=== PATIENT | female | born 1945 | race Caucasian/White ===

== ENCOUNTER → 2016-07-05 | Outpatient (CLI) | payer OTHER ==
[2016-07-05 15:17] LABS: ALT/SGPT 30 U/L (12-78); AST/SGOT 28 U/L (15-37); BLOOD UREA NITROGEN 33 mg/dl (7-18); BUN/CREATININE RATIO 27.6 (10-20); CALCIUM 8.9 mg/dl (8.5-10.1); CARBON DIOXIDE 27 mmol/L (21-32); CHLORIDE 109 mmol/L (98-107); GLUCOSE 91 mg/dl (70-99); SODIUM 143 mmol/L (136-145)
[2016-07-05 15:25] LABS: ALB/GLOB RATIO 1.2 (0.9-2); ALKALINE PHOSPHATASE 178 U/L (45-117); CHOLESTEROL 130 mg/dl (0-200); HDL CHOLESTEROL 57 mg/dl; LDL CHOLESTEROL CALCULATED 46 mg/dl; TRIGLYCERIDES 136 mg/dl (0-150); VERY LOW DENSITY LIPOPROT CALC 27 mg/dl
[2016-07-05 15:26] LABS: CHOLESTEROL/HDL RATIO 2.3
== END | disposition home or self-care (01) ==
LOC: C.LABPVFM 08:17
PROVIDERS: ATTEND Family Medicine
DX: I10 Essential (primary) hypertension (principal); E78.5 Hyperlipidemia, unspecified

== ENCOUNTER → 2017-01-03 | Outpatient (CLI) | payer OTHER ==
[2017-01-03 14:03] LABS: ALKALINE PHOSPHATASE 174 U/L (45-117); ALT/SGPT 15 U/L (12-78); AST/SGOT 18 U/L (15-37); BLOOD UREA NITROGEN 39 mg/dl (7-18); BUN/CREATININE RATIO 33.6 (10-20); CALCIUM 9.4 mg/dl (8.5-10.1); CARBON DIOXIDE 26 mmol/L (21-32); CHLORIDE 109 mmol/L (98-107); CHOLESTEROL 126 mg/dl (0-200); CHOLESTEROL/HDL RATIO 1.9; CREATININE 1.16 mg/dl (0.60-1.20); GLUCOSE 87 mg/dl (70-99); HDL CHOLESTEROL 68 mg/dl; LDL CHOLESTEROL CALCULATED 29 mg/dl; POTASSIUM 4.1 mmol/L (3.5-5.1); SODIUM 142 mmol/L (136-145); TRIGLYCERIDES 143 mg/dl (0-150); VERY LOW DENSITY LIPOPROT CALC 29 mg/dl
== END | disposition home or self-care (01) ==
LOC: C.LABPVFM 08:22
PROVIDERS: ATTEND Family Medicine
DX: I10 Essential (primary) hypertension (principal); E78.5 Hyperlipidemia, unspecified; J44.9 Chronic obstructive pulmonary disease, unspecified; R74.8 Abnormal levels of other serum enzymes

== ENCOUNTER → 2017-07-03 | Outpatient (CLI) | payer OTHER ==
[2017-07-03 13:38] LABS: ALBUMIN 3.6 gm/dl (3.4-5.0); ALT/SGPT 25 U/L (12-78); AST/SGOT 25 U/L (15-37); BLOOD UREA NITROGEN 33 mg/dl (7-18); CALCIUM 9.2 mg/dl (8.5-10.1); CARBON DIOXIDE 26 mmol/L (21-32); CHOLESTEROL 122 mg/dl (0-200); CREATININE 1.26 mg/dl (0.60-1.20); GLUCOSE 84 mg/dl (70-99); POTASSIUM 4.1 mmol/L (3.5-5.1); SODIUM 141 mmol/L (136-145)
[2017-07-03 13:41] LABS: ALKALINE PHOSPHATASE 176 U/L (45-117); LDL CHOLESTEROL CALCULATED 41 mg/dl; TOTAL PROTEIN 6.8 gm/dl (6.4-8.2)
== END | disposition home or self-care (01) ==
LOC: C.LABPVFM 08:04
PROVIDERS: ATTEND Family Medicine
DX: I10 Essential (primary) hypertension (principal); E78.5 Hyperlipidemia, unspecified; M17.10 Unilateral primary osteoarthritis, unspecified knee; J44.9 Chronic obstructive pulmonary disease, unspecified

== ENCOUNTER 2017-10-17 10:27 | Inpatient (IN) | payer OTHER ==
[2017-09-29 11:46] VITALS: BMI 26.0
--- NOTE | 2017-10-02 16:29 | PAT Medication Instructions ---
Service Date Oct 02, 2017. Current Home Medication List Atorvastatin (Lipitor), 10 MG PO QPM Ipratropium-Albuterol (Combivent Respimat), 1 PUFFS INH QID Triamterene/Hctz (Triamterene/Hctz 37.5-25MG), 1 TAB PO QAM Medication Instructions For Your Scheduled Surgery - Hold the following medications the morning of surgery: Triamterene/Hctz (Triamterene/Hctz 37.5-25MG), 1 TAB PO QAM - Take the following medications the morning of surgery with a sip of water: Ipratropium-Albuterol (Combivent Respimat), 1 PUFFS INH QID - Take the following medications as scheduled the night before surgery: Ipratropium-Albuterol (Combivent Respimat), 1 PUFFS INH QID Atorvastatin (Lipitor), 10 MG PO QPM If you have any questions please call us at [phone] or [phone] or [phone]
--- NOTE | 2017-10-13 18:42 | HISTORY & PHYSICAL EXAMINATION ---
DATE OF ADMISSION: 10/17/2017 CHIEF COMPLAINT: Bilateral knee pain and discomfort, right side greater than left. HISTORY OF PRESENT ILLNESS: The patient is a 71-year-old female from [place] who presents for surgical treatment of her right knee. She has a fairly long history of bilateral knee pain and discomfort, right side greater than left. She has been followed by my partner Dr. Ingram. She has had injections into the knees which helped temporarily, but do not last very long. She developed more instability, particularly in her right knee and has given out on her several times and she is concerned about falling and hurting herself. Pain is mostly on the lateral side. The more she walks, the more it hurts. She would like to have her right knee fixed. PAST MEDICAL HISTORY: 1. Hypertension. 2. Emphysema/COPD. PAST SURGICAL HISTORY: Previous surgeries include ovarian and fallopian tube removal. ALLERGIES: LATEX AND NICKEL. CURRENT MEDICINES: Include: 1. Triamterene/hydrochlorothiazide 37.5/25 mg once a day. 2. Combivent inhaler. 3. Atorvastatin 10 mg daily. 4. Aleve p.r.n. SOCIAL HISTORY: A 71-year-old female. She is . FAMILY HISTORY: Noncontributory. REVIEW OF SYSTEMS: Negative for diabetes, neurologic problems, vascular problems or bleeding disorders. No chest pain or shortness of breath. No history of DVT or PE. PHYSICAL EXAMINATION: GENERAL: Shows a pleasant elderly female. Looks to be in good health. HEENT: Benign. NECK: Supple, no lymphadenopathy. LUNGS: Clear to auscultation. HEART: Has a regular rate and rhythm. ABDOMEN: Soft, nontender, nondistended. EXTREMITIES: Grossly neurovascularly intact except as follows: Examination of the right leg reveals the patient walks with slight bit of valgus alignment to her knee which is worse with weightbearing. She has got a small knee effusion. She is tender over the lateral joint line. Range of motion is 5-125. No instability. She is neurologically intact. Examination of the left knee reveals slight varus alignment. She has got bony hypertrophy medially. Range of motion is 5-125. She is neurologically intact. X-RAYS: X-rays of both knees were reviewed. She has advanced bilateral knee DJD. The right side has mostly complete loss of lateral joint space and the left side has more medial compartment disease. She has got patellofemoral arthritis as well. ASSESSMENT: A 71-year-old female with advanced bilateral knee degenerative joint disease, right side a bit worse than the left. She has failed conservative treatment and would like to have her right knee replaced. PLAN: We will take her to the operating room and do right total knee replacement. The risks and benefits of this procedure were explained to the patient including but not limited to DVT, PE, , infection, neurological injury, vascular injury, bleeding problem, pain, limited range of motion, stiffness, failure to relieve her symptoms, incomplete relief of symptoms, need for further surgery in future, fracture, leg length inequality, nerve palsy, etc. The patient understands and desires to proceed. Informed consent was obtained. The patient has been unrelieved. Her creatinine on preoperative testing was slightly elevated. We will be careful with NSAIDs postop but follow her creatinine as well. Patient has an apparent Nickel allergy, so we will use the Anders and Nephew Zirconium Knee Arthroplasty. As far as discharge plans, she is planning on using home health via [facility] and will do outpatient therapy thereafter. EFRAIN
[2017-10-17] VITALS (7 sets, daily range): BP systolic 106–113; BP diastolic 59–78; PULSE 71–78; TEMP 36.4–36.8; O2SAT 92–97; Ht 157.5 cm; Wt 65.9 kg
[~2017-10-17] VITALS: Ht 157.5 cm; Wt 65.9 kg
[~2017-10-17 10:27] MED LIST: ACETAMINOPHEN 500 MG TAB PO SCH; ATOR10TA82 PO; BUPIVACAINE 0.5 % 5 MG/1 ML PF 10ML VIAL ONE; BUPIVACAINE LIPOSOME 266 MG, BUPIVACAINE/EPINEPHRINE INJ 50 ML, SODIUM CHLORIDE 0.9% PF... INFIL SCH; CEFAZOLIN 2000MG IV PUSH 15 ML IV SCH; EpINEphrine INJ 1MG/ML AMP 1 MG/ML AMP ONE; FAMOTIDINE 20 MG TAB PO SCH; GABAPENTIN 300 MG CAP PO SCH; IPRA1AER2 INH; LACTATED RINGER'S 1000ML 1,000 ML IV SCH; LACTATED RINGER'S 1000ML 500 ML IV SCH; LACTATED RINGER'S 1000ML IV SCH; METOCLOPRAMIDE HCL 10 MG TAB PO SCH; ROPIVACAINE 0.5% 5 MG/ML 30 ML VIAL ONE; TRIATAB3 PO
[2017-10-17] MEDS ORDERED: MIDAZOLAM HCL 1 MG/ML 2ML VIAL ONE (11:39)
[2017-10-17] MEDS ORDERED: FENTANYL CITRATE INJ 50 MCG/1 ML 2 ML VIAL ONE (11:39)
--- NOTE | 2017-10-17 11:40 | History & Physical Bridge Note ---
H&P Re-Evaluation Bridge Note: I have examined the patient, reviewed the History & Physical and in the interval since the performance of the History & Physical I have noted the following changes of clinical significance: No changes noted
[2017-10-17] MEDS ORDERED: SODIUM CHLORIDE 0.9% PF 50 ML VIAL ONE (11:41)
[2017-10-17] MEDS ORDERED: NURSING VERBAL MED ORDER STA (11:41)
[2017-10-17] MEDS ORDERED: EpINEphrine INJ 1MG/ML AMP 1 MG/ML AMP ONE (11:42)
[2017-10-17] MEDS ORDERED: BUPIVACAINE LIPOSOME 1/3% 266 MG/20 ML VIAL ONE (11:42)
[2017-10-17] MEDS ORDERED: BUPIVACAINE 0.25% 30 ML VIAL ONE (11:42)
[2017-10-17] MEDS ORDERED: BACITRACIN 50000 UNIT VIAL ONE (11:42)
[2017-10-17] MEDS ORDERED: ATROPINE SULFATE 0.1 MG/ML 5ML SYR IV PRN (12:00)
[2017-10-17] MEDS ORDERED: FENTANYL CITRATE INJ 50 MCG/1 ML 2 ML VIAL IV PRN (12:00)
[2017-10-17] MEDS ORDERED: HYDROmorphone INJ 1 MG/ML SYR IV PRN (12:00)
[2017-10-17] MEDS ORDERED: EpHEDrine SULFATE INJ 50 MG/ML AMP IV PRN (12:00)
[2017-10-17] MEDS ORDERED: ONDANSETRON INJ 2 MG/ML 2 ML VIAL IV PRN ×2 (12:00→15:30)
[2017-10-17] MEDS ORDERED: TRANEXAMIC ACID INJ 1,000 MG in SODIUM CHLORIDE 0.9% 100ML 100 ML IV SCH ×2 (12:00→21:30)
[2017-10-17] MEDS ORDERED: PROPOFOL IV EMULSION 10 MG/ML 20 ML VIAL ONE ×2 (14:45→14:55)
[2017-10-17] MEDS ORDERED: PHENYLEPHRINE HCL INJ 10 MG/ML VIAL ONE (14:45)
[2017-10-17] MEDS ORDERED: LIDOCAINE HCL 2% 2 ML VIAL (20MG/ML) ONE (14:45)
--- NOTE | 2017-10-17 15:29 | [facility] Post Operative Brief Note ---
Immediate Operative Summary Operative Date Oct 17, 2017. Pre-Operative Diagnosis Advanced right knee degenerative joint disease Post-Operative Diagnosis Advanced right knee degenerative joint disease Procedure(s) Performed Right total knee arthroplasty, cemented Surgeon Dr. Chauhan Skip Pitman Surgeon(s) Markus Perry PA-C Estimated Blood Loss 50 cc Findings Consistent with Post-Op Diagnosis Fluids (cc crystalloids) 2000 cc Specimens A: Right knee bone and tissue Drains None Anesthesia Type MAC Spinal Regional Complication(s) none Disposition Accompanied Pt To Recover: yes Disposition: Recovery Room / PACU Overlapping Procedure I was present for: the critical portions of procedure. I was immediately available: during the entire case
[2017-10-17] MEDS ORDERED: HYDROmorphone INJ 0.5 MG/0.5 ML SYR IV PRN (15:30)
[2017-10-17] MEDS ORDERED: MAGNESIUM HYDROXIDE SUSP 30 ML UDC PO PRN (15:30)
[2017-10-17] MEDS ORDERED: METOCLOPRAMIDE HCL INJ 5 MG/ML 2 ML VIAL IV PRN (15:30)
[2017-10-17] MEDS ORDERED: BISACODYL 10 MG SUPP PR PRN (15:30)
[2017-10-17] MEDS ORDERED: SILVER SULFADIAZINE 1% CR 50 GM JAR EXT PRN (15:30)
[2017-10-17] MEDS ORDERED: ZOLPIDEM TARTRATE 5 MG TAB PO PRN (15:30)
[2017-10-17] MEDS ORDERED: ALUMINUM/MAGNESIUM/SIMETH (MAALOX MAX) 30 ML UDC PO PRN (15:30)
--- NOTE | 2017-10-17 15:52 | DIAGNOSTIC IMAGING REPORT ---
RIGHT KNEE 2 VIEWS History: Right total knee arthroplasty. Degenerative arthritis. Postop. FINDINGS: The patient is status post a right total knee arthroplasty. The hardware is intact. No fracture or dislocation. Skin luzmaria are in place. IMPRESSION: Right total knee arthroplasty. No evidence for hardware complication. Electronically signed by: Reji Rooney M.D. 10/17/2017 3:51 PM Dictated Date/Time: 10/17/2017 3:50 PM
--- NOTE | 2017-10-17 15:59 | Anesthesiology Progress Note ---
Anesthesia Post Op Note Date & Time Oct 17, 2017 at 15:58 Vital Signs Pain Intensity: 0 Vital Signs Past 12 Hours Date Time Temp Pulse Resp B/P (MAP) Pulse Ox O2 Delivery O2 Flow Rate FiO2 10/17/17 15:55 36.4 72 18 100/67 96 Room Air 10/17/17 15:45 70 18 102/64 100 Oxymask 3 10/17/17 15:35 69 18 99/59 100 Oxymask 10 10/17/17 15:29 36.0 69 18 91/51 97 Oxymask 10 10/17/17 10:57 36.4 75 18 113/59 97 Room Air Notes Mental Status: alert / awake / arousable, participated in evaluation Pt Amnestic to Procedure: Yes Nausea / Vomiting: adequately controlled Pain: adequately controlled Airway Patency, RR, SpO2: stable & adequate BP & HR: stable & adequate Hydration State: stable & adequate Neuraxial Anesthesia: was administered, sensory block is resolving Anesthetic Complications: no major complications apparent Patient feels well in recovery with no complaints.
[2017-10-17] MEDS: IPRATROPIUM BROMIDE/ALBUTEROL respimat INH INH SCH ×2 (17:54→21:01)
[2017-10-17] MEDS: D5W AND 1/2NSS + 20MEQ KCL 1,000 ML IV SCH (17:54)
[2017-10-17] MEDS: FERROUS GLUCONATE 324 MG TAB PO SCH (17:55)
[2017-10-17] MEDS: TRAMADOL HCL 50 MG TAB PO PRN (20:18)
[2017-10-17] MEDS: CEFAZOLIN IV 1,000 MG in SYRINGE 0 ML IV SCH (21:01)
[2017-10-17] MEDS: ACETAMINOPHEN 500 MG TAB PO SCH (21:01)
[2017-10-17] MEDS: DOCUSATE SODIUM 100 MG CAP PO SCH (21:01)
[2017-10-17] MEDS: ASPIRIN 81 MG ECTAB PO SCH (21:01)
[2017-10-17] MEDS: ATORVASTATIN 10 MG TAB PO SCH (21:01)
[2017-10-17] MEDS: SENNA 8.6 MG TAB PO SCH (21:02)
--- NOTE | 2017-10-17 22:52 | OPERATIVE REPORT ---
DATE OF OPERATION: 10/17/2017 SURGEON: Carlton Chauhan MD CASINO DEALER: AKASH Malcolm. PREOPERATIVE DIAGNOSIS: Right knee degenerative joint disease. POSTOPERATIVE DIAGNOSIS: Right knee degenerative joint disease. PROCEDURE: Right Anders and Nephew zirconium posterior stabilized total knee arthroplasty. COMPLICATIONS: None. ESTIMATED BLOOD LOSS: 50 mL. FLUID REPLACEMENT: 2000 mL crystalloid fluid replacement. TOURNIQUET TIME: 68 minutes at 300 mmHg. ANESTHESIA: Spinal with adductor canal block. DRAINS: None. SPECIMENS: Right knee sent for pathology. OPERATIVE INDICATIONS: The patient is a 71-year-old female who has had a long history of bilateral knee pain and discomfort, right side greater than left. She has been managed by my partner Dr. Ingram. Over time, this conservative care has been less effective. She has become significantly debilitated by her disease. She would like to proceed with right total knee arthroplasty. The patient has an apparent NICKEL ALLERGY, so will use a Anders and Nephew zirconium total knee arthroplasty. OPERATIVE FINDINGS: Operative findings revealed extensive grade 4 changes of the medial femoral condyle and medial tibial plateau. She had some localized scattered grade 4 changes in the lateral compartment and the more extensive grade 4 changes in the patellofemoral compartment. OPERATIVE IMPLANTS: Operative implants consisted of: 1. Anders and Nephew right Journey II zirconium size 4 posterior stabilized femoral component. 2. Biomet Journey size 2 tibial tray. 3. A 10 mm posterior stabilized polyethylene insert. 4. A 29 x 9 all poly patella. OPERATIVE PROCEDURE: The patient taken to the operating room, identified, placed on the operating room table in supine position. All contact areas were appropriately padded. IV antibiotics were provided by the anesthesia team. A spinal anesthetic and adductor canal block provided in the holding area. Hebert catheter was placed in sterile fashion. Right thigh tourniquet was then placed and the right lower extremity was then prepped and draped in usual sterile fashion. The right leg was elevated and exsanguinated with Esmarch and tourniquet was placed at 300 mmHg. An anterior approach of the right knee was then performed through a longitudinal incision centered over the patella. Sharp dissection was carried through the subcutaneous tissue down to the level of the extensor mechanism. A medial parapatellar arthrotomy incision was made. Some subperiosteal dissection was carried out medially. The fat pad was dissected from beneath the patellar tendon. The lateral patellofemoral ligament was released. Patella was everted and the knee was flexed. The osteophytes were taken off the distal femur. The ACL and PCL were then released from the distal femur and the tibia subluxated anteriorly. The external tibial alignment jig was then placed in the anterior face of the tibia and adjusted 8 mm medially. Proximal tibial cut was made to remove about 2-3 mm of bone from the medial side. Tibia sized to a size 2. Attention was then drawn to the femur. The distal femur was entered with a sharp drill bit. Intramedullary canal was suctioned. A right 5-degree valgus cutting guide was placed. Distal femoral cutting block was pinned in place. Distal femoral cut was made to take an additional 2 mm of bone off the distal femur. The femur was then sized to a size 4. We did downsize this almost an entire size. The AP cutting block was then pinned parallel to the epicondylar axis, which was 4 degrees of external rotation. The anterior cord, anterior chamfer, posterior cut, posterior chamfer cut and anterior chamfer cuts were made. The knee was then flexed. The remnants of the medial and lateral menisci were excised. The osteophytes were taken off the posterior aspect of the femur. The trial femoral component was placed. The notch guide was placed and the notch was created. The trochlear groove was placed. The trial implant was assembled and the tibia was subluxated anteriorly. The tibial tray was then pinned in maximum external rotation. The drill and stem punch were used to create defect in proximal tibia for the tibial tray. The knee was then trialed and a 10 mm insert fit most appropriately. Attention was then drawn to the patella. The patella was cleaned of all soft tissues. Patella thickness measured 20 mm in thickness and was cut down to 12. It was sized to a size 29 patella. Lug holes were drilled for 29 patella. The lateral osteophyte was removed. Patella button was placed. Knee was taken through range of motion, patella tracked nicely with no thumbs test. Attention was then drawn toward placing the permanent components. All trial components were removed. Bone plug was placed in the distal femur to limit blood loss. A double batch Palacos G cement was mixed. A right Anders and Nephew Journey II size femoral component was then placed followed by a size 2 tibial tray, 10 mm posterior stabilized polyethylene insert, 29 x 9 all poly patella. The knee was brought out into full extension until cement hardened. A final cement check was then performed. Pericapsular tissues were injected with a total of 100 mL combination of 20 mL of Exparel, 30 mL of normal saline, 50 mL of 0.25% Marcaine with epinephrine. The patient did receive 1 gram of tranexamic acid. The tourniquet was then let down for a final tourniquet time of 68 minutes. Hemostasis was assured with use of electrocautery. The extensor mechanism was then closed with combination of #1 PDS suture and #1 Vicryl suture in [id number] fashion. Extensor mechanism was checked and found to be intact. Subcutaneous tissues were then closed with #2 Dexon suture in a buried interrupted fashion. Skin was closed with skin luzmaria. Leg was then cleaned and dried and a sterile dressing of Xeroform, 4 x 4's, sterile cast padding, Tello bandage were applied. The patient then transferred to the recovery room in stable condition. The patient tolerated the procedure well with no complication. All needle and sponge counts were correct at the end of the operation. I attest to the content of the Intraoperative Record and any orders documented therein. Any exception s are noted below.
[2017-10-18 00:05] VITALS: BP 107/63; PULSE 70; TEMP 36.4; O2SAT 94
[2017-10-18 03:15] VITALS: BP 114/64; PULSE 71; TEMP 36.3; O2SAT 95
[2017-10-18] MEDS: D5W AND 1/2NSS + 20MEQ KCL 1,000 ML IV SCH ×2 (03:16→12:42)
[2017-10-18] MEDS: TRAMADOL HCL 50 MG TAB PO PRN ×3 (03:20→20:54)
[2017-10-18 05:37] LABS: HEMATOCRIT 29.7 % (37-47); HEMOGLOBIN 9.6 g/dL (12.0-16.0); MEAN CELL VOLUME 87.9 fL (80-100); MEAN CORPUSCULAR HEMOGLOBIN 28.4 pg (25-34); MEAN CORPUSCULAR HGB CONC 32.3 g/dl (32-36); MEAN PLATELET VOLUME 8.6 fL (7.4-10.4); PLATELET COUNT 277 K/uL (130-400); RED CELL DISTRIBUTION WIDTH CV 13.1 % (11.5-14.5); WHITE BLOOD COUNT 7.32 K/uL (4.8-10.8)
[2017-10-18] MEDS: CEFAZOLIN IV 1,000 MG in SYRINGE 0 ML IV SCH (05:47)
[2017-10-18] MEDS: ACETAMINOPHEN 500 MG TAB PO SCH ×3 (05:47→20:51)
[2017-10-18 06:11] LABS: CREATININE 1.21 mg/dl (0.60-1.20); POTASSIUM 3.5 mmol/L (3.5-5.1)
[2017-10-18 06:47] VITALS: BP 100/61; PULSE 73; TEMP 36.6; O2SAT 99
--- NOTE | 2017-10-18 07:34 | Clinical Documentation Query ---
CLINICAL DOCUMENTATION QUERY Dr. PALOMARES, In your clinical opinion does this patient have: ( ) Chronic kidney disease, stage 3 ( ) Not Agree ( ) Other explanation of clinical findings (No explanation is considered a No Response) ( x ) Unable to determine ( ) Need to Discuss (Phone CDS or qliq) (No discussion is considered a No Response) The medical record reflects the following clinical findings, treatment, and risk factors. Clinical Indicators: 71 yo female presenting with R knee DJD for a R TKA. Review of historical GFR over the past 2 years revealed range of 38.9-46.7. Treatment: monitor PRP's thru PCP Risk Factors: HTN, COPD, age The stages of CKD according to the [employer] are as follows: Stage I: GFR >90 Stage II: GFR 60-89 Stage III: GFR 30-59 Stage IV: GFR 15-29 Stage V: GFR <15 Please clarify and document your clinical opinion in the progress notes and discharge summary. Terms such as "probable", "suspected", "likely", "questionable", "possible", or "still to be ruled out" are acceptable. IF IN AGREEMENT, YOU MUST DOCUMENT ABOVE DIAGNOSTIC STATEMENT IN DAILY PROGRESS NOTES AND DISCHARGE SUMMARY. This document is not part of the patient's record. Thank You, Sissy Garg, RN [phone]
[2017-10-18] MEDS: FERROUS GLUCONATE 324 MG TAB PO SCH ×3 (08:14→17:47)
[2017-10-18] MEDS: IPRATROPIUM BROMIDE/ALBUTEROL respimat INH INH SCH ×4 (08:14→20:51)
[2017-10-18] MEDS: TRIAMTERENE/HCTZ 37.5/25MG TAB PO SCH (08:14)
[2017-10-18] MEDS: MULTIVITAMIN TAB PO SCH (08:15)
[2017-10-18] MEDS: PANTOprazole SOD 40 MG TAB PO SCH (08:15)
[2017-10-18] MEDS: DOCUSATE SODIUM 100 MG CAP PO SCH ×2 (08:15→20:51)
[2017-10-18] MEDS: ASPIRIN 81 MG ECTAB PO SCH ×2 (08:15→20:51)
[2017-10-18 10:45] VITALS: BP 108/62; PULSE 74; TEMP 36.4; O2SAT 96
[2017-10-18] MEDS ORDERED: ACET-24 PO (13:57)
[2017-10-18] MEDS ORDERED: ULT50X PO (13:57)
[2017-10-18] MEDS ORDERED: ASPI-461 PO (13:57)
[2017-10-18] MEDS ORDERED: FRRG PO (13:57)
--- NOTE | 2017-10-18 14:05 | PROGRESS NOTE ---
DATE: 10/18/2017 SUBJECTIVE: A 71-year-old white female postop day 1 from a right knee replacement. She is doing pretty well. Pain has been reasonably well controlled. Therapy went well. No chest pain or shortness of breath. Not feeling dizzy or lightheaded. OBJECTIVE: VITAL SIGNS: Temperature 36.4. Vital signs stable. GENERAL: Physical examination reveals a pleasant elderly female. She is sitting in her chair in the bathroom waiting for some assistance. EXTREMITIES: Examination of the right leg reveals the leg to be well aligned. Dressing is clean, dry and intact. She can dorsiflex and plantarflex her foot appropriately. She is neurologically intact. LABORATORY DATA: Hemoglobin 9.6. Hematocrit 29.7. Electrolytes are stable. She does have some chronically elevated creatinine which is improved from previously. PLAN: 1. DVT prophylaxis including thigh-high TEDs, SCDs, and aspirin twice a day. 2. PT and OT. Weight bear as tolerated. Right total knee protocol. 3. Pain control. Doing reasonably well with current pain regimen. 4. Disposition: She is hoping to be discharged to home with some home health once medically stable and recovered.
[2017-10-18 15:07] VITALS: BP 109/64; PULSE 75; TEMP 36.4; O2SAT 95
[2017-10-18] MEDS: SENNA 8.6 MG TAB PO SCH (20:51)
[2017-10-18] MEDS: ATORVASTATIN 10 MG TAB PO SCH (20:51)
--- NOTE | 2017-10-18 21:06 | Discharge Instructions ---
Discharge Instructions Date of Service Oct 18, 2017. Admission Reason for Admission: Right Knee Degenerative Joint Disease, Knee Pain Discharge Discharge Diagnosis / Problem: Right Knee Replacement Discharge Goals Goal(s): Decrease discomfort, Improve function, Increase independence, Improve disease control, Therapeutic intervention Activity Recommendations Activity Limitations: per Instructions/Follow-up section Weightbearing Status: Right weightbearing . Instructions / Follow-Up Instructions / Follow-Up ACTIVITY RECOMMENDATIONS: Physical Therapy: * You will go to physical therapy three times each week for four to six weeks after your surgery in order to regain your knee range of motion and to retrain your knee to work properly. * It is just as important to make sure you are getting your knee perfectly straight as it is to regain your knee bend. * Taking a pain pill an hour before therapy can help you have a more productive and comfortable therapy session. Home Exercise: * You were shown a series of exercises (heel props, heel slides, etc.) in the hospital. Do these exercises three to four times each day including the exercises you were shown in physical therapy. Walking: * Get up and walk several times each day. For the first four weeks, try not to stand or walk for more than one hour at a time. If you do stand or walk for more than one hour, you will not hurt anything, but your knee and leg will likely swell. * As you feel comfortable, you may change from the walker or crutches to a cane and then to independent walking. MEDICATIONS: New Medicine: * You will likely be taking one or more of these medications: 1. Tramadol - A quick and shorter-acting pain medication. Take one to two tablets every four to six hours to lessen your pain. 2. Iron Sulfate - Take two times each day for the month after surgery to help you replace the blood lost during surgery. 3. Aspirin - Thins your blood to lessen the chance of forming a blood clot. * The most common side effects of pain medicine and iron are nausea and constipation. If nausea or constipation is too much of a problem or if you have any questions about your new medicines or doses, call [facility] at . We will try to help you manage these issues. VERY IMPORTANT TO READ AND REVIEW" Pain: * The immediate post-operative period after knee replacement surgery is often quite painful. * You are given a prescription for pain medicine. You should take it, as directed, when you need it, especially before physical therapy and before going to bed. Pain that interferes with sleep is very common and can last several months. * You will likely need pain medicine for the first four to six weeks. It will not stop all of the pain. The pain will lessen and as you feel better, you may change to milder pain medicine such as Tylenol. * The most common side effects of pain medicine are nausea and constipation, so don't take more than you need. SPECIAL CARE INSTRUCTIONS: TEDs/Elastic Stockings: * The white elastic stockings help limit swelling and prevent blood clots from forming in your legs. The more you wear them, the more they work. * Wear them for six weeks after knee replacement surgery and four weeks after partial knee replacement. Prevention of Infection: * Take antibiotics one hour before any dental cleaning, dental work, urological procedure, gastrointestinal procedure or any invasive surgery in order to prevent your new joint from getting infected. * You may get the antibiotics from the doctor performing the procedure or you may call our office at before and we will call in a prescription to the pharmacy of your choice. Things to Watch For: * Drainage from the incision site that occurs more than one week after your surgery. * Severely increased knee/leg pain or swelling. * Increased redness at the incision site. * Fever above 102 degrees Fahrenheit. * Unusual chest pain or shortness of breath. * Unusual pain or burning with urination. Call [facility] at with any of the above problems or if you have any questions about your medicines or recovery. FOLLOW UP VISIT: Make an appointment to see your doctor for approximately two weeks after surgery for a progress check and staple removal by calling the office at . Current Hospital Diet Patient's current hospital diet: Regular Diet Discharge Diet Recommended Diet: Regular Diet Procedures Procedures Performed: Right total knee arthroplasty, cemented Pending Studies Studies pending at discharge: no Medical Emergencies . Who to Call and When: Medical Emergencies: If at any time you feel your situation is an emergency, please call [phone] immediately. . Non-Emergent Contact Non-Emergency issues call your: Surgeon . "Provider Documentation" section prepared by Carlton Chauhan. .
[2017-10-18 22:59] VITALS: BP 98/59; PULSE 92; TEMP 36.6; O2SAT 91
[2017-10-19 06:03] VITALS: BP 133/76; PULSE 86; TEMP 36.7; O2SAT 93
[2017-10-19] MEDS: ACETAMINOPHEN 500 MG TAB PO SCH (06:05)
[2017-10-19 06:55] VITALS: BP 113/67; PULSE 86; TEMP 36.7; O2SAT 94
[2017-10-19] MEDS: DOCUSATE SODIUM 100 MG CAP PO SCH (07:32)
[2017-10-19] MEDS: IPRATROPIUM BROMIDE/ALBUTEROL respimat INH INH SCH (07:32)
[2017-10-19] MEDS: FERROUS GLUCONATE 324 MG TAB PO SCH (07:33)
[2017-10-19] MEDS: MULTIVITAMIN TAB PO SCH (07:33)
[2017-10-19] MEDS: PANTOprazole SOD 40 MG TAB PO SCH (07:33)
[2017-10-19] MEDS: TRIAMTERENE/HCTZ 37.5/25MG TAB PO SCH (07:34)
--- NOTE | 2017-10-19 07:44 | PROGRESS NOTE ---
DATE: 10/19/2017 SUBJECTIVE: A 71-year-old female postop day 2 from a right knee replacement. She is doing pretty well. Pain is reasonably well controlled. No chest pain, no shortness of breath. Not feeling dizzy or lightheaded. OBJECTIVE: VITAL SIGNS: Temperature 36.7. Vital signs stable. PHYSICAL EXAMINATION: GENERAL: Physical examination reveals a pleasant elderly female. She is sitting up in bed, looks reasonably comfortable. EXTREMITIES: Examination of the right leg reveals the incision to be clean, dry and intact. Not a lot of swelling. No drainage. Calf is soft and supple. She is neurologically intact. ASSESSMENT: A 71-year-old white female postoperative day 2 from right knee replacement, doing pretty well. Pain is reasonably well controlled. PLAN: 1. DVT prophylaxis including thigh-high TEDs, SCDs, and aspirin twice a day. 2. PT/OT. Weight bear as tolerated. Right total knee protocol. 3. Pain control. Doing reasonably well with current pain regimen. 4. Disposition: Plan to discharge to home with home health later today.
[2017-10-19] MEDS: ASPIRIN 81 MG ECTAB PO SCH (08:44)
[2017-10-19 09:31] VITALS: BP 113/67; PULSE 86; TEMP 36.7; O2SAT 94
== END 2017-10-19 11:18 | disposition home health service (06) | DRG 470 ==
LOC: C.ACU 10:27 → C.3E 15:33 → ENRESERV 16:08
PROVIDERS: ADMIT Orthopaedic Surgery Sports Medicine; ATTEND Orthopaedic Surgery Sports Medicine
PROC: 0SRC069 Replacement of Right Knee Joint with Oxidized Zirconium on Polyethylene Synthetic Substitute, Cemented, Open Approach (ICD-10-PCS; principal; 2017-10-17 13:00)
DX: M17.0 Bilateral primary osteoarthritis of knee (principal); I10 Essential (primary) hypertension; J44.9 Chronic obstructive pulmonary disease, unspecified; Z79.899 Other long term (current) drug therapy; Z91.048 Other nonmedicinal substance allergy status; Z91.040 Latex allergy status

== ENCOUNTER → 2017-11-09 | Outpatient (CLI) | payer OTHER ==
[~2017-11-09] MED LIST changes: +ACET-24 PO; -ACETAMINOPHEN 500 MG TAB PO SCH; +ASPI-461 PO; -BUPIVACAINE 0.5 % 5 MG/1 ML PF 10ML VIAL ONE; -BUPIVACAINE LIPOSOME 266 MG, BUPIVACAINE/EPINEPHRINE INJ 50 ML, SODIUM CHLORIDE 0.9% PF... INFIL SCH; -CEFAZOLIN 2000MG IV PUSH 15 ML IV SCH; -EpINEphrine INJ 1MG/ML AMP 1 MG/ML AMP ONE; -FAMOTIDINE 20 MG TAB PO SCH; +FRRG PO; -GABAPENTIN 300 MG CAP PO SCH; -LACTATED RINGER'S 1000ML 1,000 ML IV SCH; -LACTATED RINGER'S 1000ML 500 ML IV SCH; -LACTATED RINGER'S 1000ML IV SCH; -METOCLOPRAMIDE HCL 10 MG TAB PO SCH; -ROPIVACAINE 0.5% 5 MG/ML 30 ML VIAL ONE; +ULT50X PO
[2017-11-09 12:44] LABS: BASO % 0.5 %; BASO ABS # 0.04 K/uL (0-0.2); EOS % 4.6 %; EOS ABS # 0.34 K/uL (0-0.5); HEMATOCRIT 31.2 % (37-47); HEMOGLOBIN 9.7 g/dL (12.0-16.0); IG# 0.02 K/uL (0.00-0.02); LYMPH % 16.2 %; LYMPH ABS # 1.19 K/uL (1.2-3.4); MEAN CELL VOLUME 89.4 fL (80-100); MEAN CORPUSCULAR HEMOGLOBIN 27.8 pg (25-34); MEAN CORPUSCULAR HGB CONC 31.1 g/dl (32-36); MEAN PLATELET VOLUME 8.6 fL (7.4-10.4); MONO % 13.1 %; MONO ABS # 0.96 K/uL (0.11-0.59); NEUT % 65.3 %; PLATELET COUNT 739 K/uL (130-400); RED CELL DISTRIBUTION WIDTH CV 14.4 % (11.5-14.5); WHITE BLOOD COUNT 7.35 K/uL (4.8-10.8)
[2017-11-09 15:48] LABS: ALBUMIN 3.1 gm/dl (3.4-5.0); ALKALINE PHOSPHATASE 180 U/L (45-117); ALT/SGPT 48 U/L (12-78); AST/SGOT 62 U/L (15-37); BLOOD UREA NITROGEN 23 mg/dl (7-18); CALCIUM 9.5 mg/dl (8.5-10.1); CARBON DIOXIDE 24 mmol/L (21-32); CREATININE 1.11 mg/dl (0.60-1.20); GLUCOSE 85 mg/dl (70-99); POTASSIUM 4.1 mmol/L (3.5-5.1); SODIUM 140 mmol/L (136-145); TOTAL PROTEIN 7.1 gm/dl (6.4-8.2); TRANSFERRIN 212 mg/dl (200-360)
== END | disposition home or self-care (01) ==
LOC: C.LABPVFM 09:44
PROVIDERS: ATTEND Family Medicine
DX: D64.9 Anemia, unspecified (principal); R79.89 Other specified abnormal findings of blood chemistry

== ENCOUNTER 2022-10-19 23:31 | Inpatient (IN) ==
--- NOTE | 2022-10-19 23:38 | Emergency Department Note ---
Impression & Plan Dementia ADMIT ED Provider Note HPI: The patient is a 76-year-old female who presents the emergency department after she was just discharged earlier this evening. Patient's daughter presents and is anxious and tearful, she states that the patient had some episodes of confusion after discharge, she states he went to [facility] to get some supplies for the house including food and drinks, she states that the patient began to hallucinate in the [facility] and thought that people were coming out of the store with guns to "get her". Patient's daughter states she was very concerned because the patient also made a statement about her at home asking her to get a gun yesterday and she is unsure why. On arrival here to the ED the patient appears similar to the way she appeared prior to discharge, she is alert, she is resting comfortably in bed and appears to be in no acute distress. She is not agitated on my initial assessment. Daughter does have videos on her phone of the patient having these anxious spells while they were sitting in the car in the parking lot at [facility]. The patient's daughter is very anxious and tearful on arrival and states that she does not feel that she is able to safely take care of the patient at home at this point in her home. ROS: - Per HPI Differential Diagnosis: Dementia with delirium/hallucination, amongst other potential pathologies. *Outpatient medications and allergy history reviewed. *Pertinent external medical records reviewed. PE: General: Alert HEENT: Normocephalic, trachea midline Eyes: Extraocular eye movement is intact, no scleral erythema Pulmonary: Clear to auscultation bilaterally, no wheezing Cardio: Regular rate and rhythm GI: Abdomen is soft to palpation : No suprapubic tenderness MSK: No evidence of trauma or malformation of the extremities, no edema Skin: No evidence of rash Neuro: Alert, no focal deficits, ambulates all extremities spontaneously without issue Psychiatric: Cooperative equipment monitor phototypesetting: (As interpreted by myself): - An order was placed for continuous cardiac monitoring - Patient was noted to be in sinus rhythm with a rate of 80 EKG: (As interpreted by myself): Rate: 74 Rhythm: Probable sinus rhythm with baseline artifact Intervals: Within normal limits ST changes: No ST elevation Time: 0027 Medical Decision Making: Patient's daughter returned the patient to the ER, daughter was very anxious and tearful on arrival. She states that the patient is having some hallucinations, they went to a [employer] after they were discharged from the hospital earlier this evening and the patient began to have some hallucinations there, patient made a concerning statement about her who she lives with asking her to go get a gun yesterday. Patient is unable to provide any details on this statement. Patient again appears in no acute distress on arrival, she is resting comfortably in bed on my initial assessment. Overall, the patient's daughter expresses some concern that the patient is not safe at home, she has had a decline over the past several days and given her unremarkable work-up earlier this evening I think it is likely that the patient has some dementia with some hallucinatory features and likely progressive cogni tive decline. Given the daughter is concerned about safety and possibly the need for placement in a nursing facility, patient will be placed for admission. [facility] hospitalist service was consulted for admission, patient was placed for admission in stable condition. Consultants: Hospitalist service, Dr. Rosado Disposition discussion held by myself with: Patient and patient's daughter Diagnosis: 1. Dementia with delirium and hallucinations 2. Social/safety concern at home Disposition: Admission Fredy Ambrose DO Emergency Medicine Past Med/Surg History Medical History Asthma Benign hypertension COPD (chronic obstructive pulmonary disease) Hyperlipidemia Osteoporosis Surgical History History of knee replacement History of oophorectomy History of tonsillectomy S/P tubal ligation Family History Father Stroke Denies family history of Ovarian cancer Prostate cancer Myocardial infarction Breast cancer Colorectal cancer Uterine cancer Social History (Updated 07/18/22 @ 10:30 by Nithya Cho LPN) Smoking Status: Never smoker Age Started Using Tobacco: 18; Age Quit Using Tobacco: 58; packs per day: 1; Second Hand Exposure: No; Do You Dip or Chew Tobacco: No; Hx Alcohol Use: Yes Alcohol type: wine Alcohol Intake Frequency: Monthly or Less Hx Substance Use: No Preferred Language: Cape Verdean Communication Ability: Effective Hearing Ability: Hard of Hearing 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 Beliefs That Will Affect Care: None marital status: Current Living Situation: Spouse current occupational status: retired How many Children do You have: 2 Feels Safe at Home: Yes Childhood Exposure to Second-Hand Smoke: No Diet: regular caffeine: No Dental Care, Regularly: No Physical Activity Frequency: Does not Exercise Seatbelt Use: always Sunscreen Use: Yes Allergies Allergies Allergy/AdvReac Type Severity Reaction Status Date / Time latex Allergy Intermediate RASH ON Verified 10/19/22 23:36 ARMS WITH GLOVES nickel Allergy Intermediate RASH Verified 10/19/22 23:36 Home Meds Home Medications Medication Instructions Recorded Confirmed acetaminophen 500 mg tablet 1,000 mg PO Q8 PRN Pain 12/25/18 10/19/22 ascorbic acid (vitamin C) 500 mg 500 mg PO DAILY 10/19/22 10/19/22 tablet (Vitamin C) ibuprofen 200 mg tablet 400 mg PO DIRECTED PRN Pain 10/19/22 10/19/22 naproxen sodium 220 mg tablet 220 mg PO Q8H PRN Pain 10/19/22 10/19/22 (Aleve) oxybutynin chloride 5 mg 5 mg PO QAM 10/19/22 10/19/22 tablet,extended release 24 hr Previous Rx's Medication Instructions Recorded ferrous sulfate 325 mg (65 mg 325 mg PO DAILY #90 tabs 07/16/21 iron) tablet hydrochlorothiazide 12.5 mg tablet 12.5 mg PO DAILY #90 tabs 07/18/22 ipratropium 20 mcg-albuterol 100 1 puff inhalation BID #4 grams 07/18/22 mcg/actuation mist for inhalation (Combivent Respimat) Results & Data (ED) Vital Signs Vital Signs - 24 hr 10/19/22 23:38 10/20/22 00:15 10/19/22 23:37 Temperature 36.7 C Temperature Source Oral Pulse Rate 56 L 81 67 Pulse Rhythm Irregular Respiratory Rate 18 18 9 L Blood Pressure 136/77 Blood Pressure Mean 96 Pulse Oximetry 96 96 Oxygen Delivery Method Room Air Room Air Sepsis Recent Fever Within 48 Hours No Sepsis New/Unexplained Change in Mental Status No Sepsis Action Taken by Nursing No Action Required 10/20/22 00:00 10/20/22 00:30 10/20/22 01:00 Temperature Temperature Source Pulse Rate 63 76 64 Pulse Rhythm Respiratory Rate 13 17 23 Blood Pressure 154/74 H 133/75 150/87 H Blood Pressure Mean 100 94 108 Pulse Oximetry 97 95 96 Oxygen Delivery Method Sepsis Recent Fever Within 48 Hours Sepsis New/Unexplained Change in Mental Status Sepsis Action Taken by Nursing Laboratory Data Lab Results 10/19/22 10/20/22 Range/Units 23:55 00:33 ESR 12 (0-30) mm/hr POC Glucose 89 (70-99) mg/dl Discharge Plan Visit Data Chief Complaint: Altered Mental Status Stated Complaint: DEHYDRATED,CONFUSION,ALTERED MENTAL STATUS ED Provider: Fredy Ambrose Discharge Problem: Dementia Discharge Instructions Interventions: ED Discharge Assessment Last Done: 10/20/22 01:41
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
[2022-10-20] MEDS ORDERED: ONDANSETRON INJ 2 MG/ML 2 ML VIAL IV PRN (02:02)
[2022-10-20] MEDS ORDERED: ACETAMINOPHEN 500 MG TAB PO PRN (02:02)
[2022-10-20] MEDS ORDERED: ACETAMINOPHEN 325 MG TAB PO PRN (02:02)
[2022-10-20 02:05] LABS: Lyme Ab IgG w/WB Rflx Negative (Negative); Lyme Ab IgM w/WB Rflx Negative (Negative)
[2022-10-20] MEDS: Ipratropium HFA Inhaler (Combivent Respimat P&T Subs) INH SCH ×2 (07:50→19:36)
[2022-10-20] MEDS: Albuterol HFA 8 GM Inhaler (Combivent Respimat P&T Subs) INH SCH ×2 (07:50→19:36)
[2022-10-20] MEDS: ASCORBIC ACID 500 MG TAB PO SCH (07:57)
[2022-10-20] MEDS: FERROUS SULFATE 325 MG TAB PO SCH (07:57)
[2022-10-20] MEDS ORDERED: OXYBUTYNIN CHLORIDE XL 5 MG TABCR PO SCH (09:00)
[2022-10-20] MEDS ORDERED: IPRATROPIUM BROMIDE/ALBUTEROL respimat INH INH SCH (09:00)
[2022-10-20 09:45] LABS: Basophils # (auto) 0.03 K/uL (0-0.2); Basophils % (auto) 0.7 %; Eosinophils # (auto) 0.07 K/uL (0-0.50); Eosinophils % (auto) 1.7 %; Hematocrit (blood only) 33.8 % (37.0-47.0); Hemoglobin 11.5 g/dl (12.0-16.0); Immature Granulocytes # (auto) 0.01 K/uL (0.01-0.20); Immature Granulocytes % (auto) 0.2 %; Lymphocytes # (auto) 0.69 K/uL (1.2-3.4); Lymphocytes % (auto) 16.5 %; Mean Corpuscular Hemoglobin 31.1 pg (25.0-34.0); Mean Corpuscular Volume 91.4 fL (80.0-100.0); Monocytes % (auto) 7.2 %; Neutrophils # (auto) 3.07 K/uL (1.40-6.50); Neutrophils % (auto) 73.7 %; Platelet Count 246 K/uL (130-400); RDW Coefficient of Variation 14.2 % (11.5-14.5); RDW Standard Deviation 47.7 fL (36.4-46.3); White Blood Count 4.17 K/ul (4.8-10.8)
--- NOTE | 2022-10-20 09:45 | Hospitalist Progress Note ---
Date of Service October 20, 2022 Assessment & Plan (1) PMR (polymyalgia rheumatica): Plan: Polymyalgia rheumatica type symptoms- Patient with several month interval of generalized weakness, fatigue, multiple myalgias and arthralgias, intermittent headaches, progressive ambulatory dysfunction Patient in ED had negative testing for COVID, flu and RSV. Chest x-ray was negative. CT head without contrast was negative. MRI of brain did not show acute findings Lyme antibody testing was negative. Anaplasmosis smear is negative with anaplasmosis antibodies ordered ESR has been added and negative Pending studies that been added: Rheumatoid factor, SANDRA, HLA-B27. Random urine cortisol is 21 Of note, her daughter reports that she herself has recently been diagnosed with ankylosing spondylitis Symptoms are most consistent at this point with PMR, concerns for intermittent confusion and delirium may be cautious about considering steroid pulse dosing at this time With regard to possible delirium patient given thiamine and urine cultures pending (2) Hyperlipidemia: (3) COPD (chronic obstructive pulmonary disease): (4) Benign hypertension: (5) Asthma: (6) Bladder spasms: (7) Dementia: Plan Asthma/COPD- Continue usual inhalers Bladder spasms- Continue oxybutynin PT OT evaluation Admission and Anticipated Discharge Date Admission Date: October 20, 2022 Subjective Patient seen in company of her family. Patient's family says she flips and becomes a different person coming angry and yelling when she usually is quite hostile. 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 Patient has no se izure-like episodes and lack of postictal confusion goes against this possibly being seizures Patient given thiamine and pending urine culture Physical Exam Physical Exam: Patient awake and alert no focal signs or symptoms of infectious etiology about head neck no lymphadenopathy she does have some swallowing dysfunction lungs are clear heart is regular abdomen NABS soft no suprapubic tenderness extremities are with trace edema and tender to touch Results & Data Results & Data Vital Signs (Past 12 Hours) Vital Signs Temp Pulse Pulse Resp BP BP BP 10/20/22 08:10 101 H 15 130/74 10/20/22 02:28 97.5 F L 76 18 132/74 10/20/22 01:30 78 23 134/83 10/20/22 01:00 64 23 150/87 H 10/20/22 00:30 76 17 133/75 10/20/22 00:00 63 13 154/74 H 10/19/22 23:37 67 9 L 10/20/22 00:15 81 18 10/19/22 23:38 98.1 F 56 L 18 136/77 Pulse Ox O2 Del Method 10/20/22 08:10 95 Room Air 10/20/22 02:28 96 Room Air 10/20/22 01:30 95 10/20/22 01:00 96 10/20/22 00:30 95 10/20/22 00:00 97 10/19/22 23:37 10/20/22 00:15 96 Room Air 10/19/22 23:38 96 Room Air Laboratory Results Reviewed CBC, chemistry, random cortisol level PG Care Time/CCT Total # of Minutes Spent Total Time Spent with Patient: Total time spent is greater than 50% in coordination of care (as documented) at patient's floor/unit and/or counseling patient: Coding Level of Care Code 13075 SUB INP/OBS CARE 3/50MIN Diagnoses PMR (polymyalgia rheumatica) M35.3 Hyperlipidemia E78.2 Hyperlipidemia type: mixed hyperlipidemia COPD (chronic obstructive pulmonary disease) 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
[2022-10-20 09:59] LABS: Albumin Level 3.7 gm/dl (3.4-5.0); BUN Creatinine Ratio 37.5 (10-20); Calcium 9.4 mg/dl (8.6-10.3); Creatinine Clr Calc Pharmacy 48.3 ml/min; Est GFR (African American) 65.7 ml/min; Est GFR (Non-African American) 56.6 ml/min; Phosphorus 3.3 mg/dl (2.5-4.9); Potassium 3.8 mmol/L (3.5-5.1)
[2022-10-20] MEDS ORDERED: THIAMINE HCL 500 MG in SODIUM CHLORIDE 0.9% 50 ML IV STA (12:27)
[2022-10-21] MEDS: Albuterol HFA 8 GM Inhaler (Combivent Respimat P&T Subs) INH SCH (07:24)
[2022-10-21] MEDS: Ipratropium HFA Inhaler (Combivent Respimat P&T Subs) INH SCH (07:24)
[2022-10-21] MEDS: ASCORBIC ACID 500 MG TAB PO SCH (10:36)
[2022-10-21] MEDS: FERROUS SULFATE 325 MG TAB PO SCH (10:36)
[2022-10-21] MEDS: THIAMINE HCL 100 MG TAB PO SCH (10:36)
[2022-10-21 10:38] LABS: Basophils # (auto) 0.03 K/uL (0-0.2); Basophils % (auto) 0.5 %; Eosinophils # (auto) 0.06 K/uL (0-0.50); Hematocrit (blood only) 34.9 % (37.0-47.0); Hemoglobin 12.1 g/dl (12.0-16.0); Immature Granulocytes # (auto) 0.01 K/uL (0.01-0.20); Immature Granulocytes % (auto) 0.2 %; Lymphocytes % (auto) 18.5 %; Mean Corpuscular Hemoglobin 31.6 pg (25.0-34.0); Mean Corpuscular Hgb Conc 34.7 g/dL (32.0-36.0); Mean Corpuscular Volume 91.1 fL (80.0-100.0); Monocytes # (auto) 0.55 K/uL (0.11-0.59); Monocytes % (auto) 9.3 %; Neutrophils # (auto) 4.19 K/uL (1.40-6.50); Neutrophils % (auto) 70.5 %; Platelet Count 222 K/uL (130-400); RDW Coefficient of Variation 14.3 % (11.5-14.5); RDW Standard Deviation 47.9 fL (36.4-46.3); Red Blood Count 3.83 M/uL (4.20-5.40); White Blood Count 5.94 K/ul (4.8-10.8)
[2022-10-21 10:51] LABS: Albumin Level 3.7 gm/dl (3.4-5.0); BUN Creatinine Ratio 32.2 (10-20); Calcium 9.6 mg/dl (8.6-10.3); Creatinine Clr Calc Pharmacy 38.3 ml/min; Est GFR (African American) 49.6 ml/min; Est GFR (Non-African American) 42.8 ml/min; Magnesium 1.6 mg/dl (1.7-2.4); Phosphorus 2.8 mg/dl (2.5-4.9); Potassium 3.8 mmol/L (3.5-5.1)
[2022-10-21] MEDS ORDERED: SODIUM CHLORIDE 0.9% 1000ML 1,000 ML IV SCH (12:00)
[2022-10-21 12:52] LABS: Anti Nuclear Antibody Screen NEGATIVE (NEGATIVE); Rheumatoid Factor <14 IU/mL (<14)
--- NOTE | 2022-10-21 15:53 | Hospitalist Progress Note ---
Date of Service October 21, 2022 Assessment & Plan (1) PMR (polymyalgia rheumatica): Plan: Polymyalgia rheumatica type symptoms- Patient with several month interval of generalized weakness, fatigue, multiple myalgias and arthralgias, intermittent headaches, progressive ambulatory dysfunction Patient in ED had negative testing for COVID, flu and RSV. Chest x-ray was negative. CT head without contrast was negative. MRI of brain did not show acute findings Lyme antibody testing was negative. Anaplasmosis smear is negative with anaplasmosis antibodies ordered ESR has been added and negative Pending studies that been added: Rheumatoid factor, SANDRA, HLA-B27. Random urine cortisol is 21 Of note, her daughter reports that she herself has recently been diagnosed with ankylosing spondylitis Symptoms are most consistent at this point with PMR, concerns for intermittent confusion and delirium may be cautious about considering steroid pulse dosing at this time With regard to possible delirium patient given thiamine and urine cultures pending (2) Encephalopathy: Plan: patient has intermittent explosive changes in personality which she does recall metabolic work-up for encephalopathy is thus been negative she does have small vessel disease on her brain question if these are atypical seizures could possibly be considered however we are repeating fine at this time hopeful that this is thiamine deficient delirium and if she has a good track record may consider not proceeding with further work-up if she has another event may consider instituting neurology consultation and even Maykel We will attempt to use low-dose Seroquel 1 dose at bedtime on 10/21/2022 (3) COPD (chronic obstructive pulmonary disease): Plan: Chronic and stable remains on albuterol and ipratropium Plan PT OT evaluation Admission and Anticipated Discharge Date Admission Date: October 20, 2022 Subjective Patient seen in company of her family. Last evening on 10/20 after given intravenous thiamine it was observed the patient becoming angry and yelling She reportedly was in this condition throughout the night to the morning when her arrived there was a slight interaction between the 2 then he left later in the afternoon the patient was calm and oriented. 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 Patient has no seizure-like episodes and lack of postictal confusion goes against this possibly being seizures Patient given thiamine and pending serum level urine culture so far is negative Physical Exam Physical Exam: Patient awake and alert no focal signs or symptoms of infectious etiology about head neck no lymphadenopathy she does have some swallowing dysfunction lungs are clear heart is regular abdomen NABS soft no suprapubic tenderness extremities are with trace edema and tender to touch Results & Data Results & Data Vital Signs (Past 12 Hours) Vital Signs Temp Pulse Resp BP Pulse Ox O2 Del Method 10/21/22 15:19 97.9 F 65 18 98/53 L 95 Room Air Laboratory Results Reviewed CBC reviewed chemistry PG Care Time/CCT Total # of Minutes Spent Total Time Spent with Patient: Total time spent is greater than 50% in coordination of care (as documented) at patient's floor/unit and/or counseling patient: Coding Level of Care Code 75510 SUB INP/OBS CARE 3/50MIN Diagnoses PMR (polymyalgia rheumatica) M35.3 Encephalopathy G93.40 COPD (chronic obstructive pulmonary disease) 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
[2022-10-21] MEDS ORDERED: SENNOSIDES 8.8 MG/5 ML UDC PO ONE (20:00)
--- NOTE | 2022-10-21 20:15 | Electrocardiogram Report ---
Test Reason : Blood Pressure : / mmHG Vent. Rate : 058 BPM Atrial Rate : 000 BPM P-R Int : 000 ms QRS Dur : 090 ms QT Int : 472 ms P-R-T Axes : 000 019 094 degrees QTc Int : 463 ms Poor data quality, interpretation may be adversely affected Sinus bradycardia Premature atrial complexes Cannot rule out Lateral infarct , age undetermined Abnormal ECG When compared with ECG of 19-OCT-2022 15:56, No significant change Confirmed by Pradeep Nichols ([id number]) on 10/21/2022 8:15:35 PM Referred By: REFERRED SELF Confirmed By:Pradeep Nichols
[2022-10-21] MEDS ORDERED: QUEtiapine FUMARATE 25 MG TABLET PO ONE (21:00)
--- NOTE | 2022-10-21 21:47 | Electrocardiogram Report ---
Test Reason : Blood Pressure : / mmHG Vent. Rate : 074 BPM Atrial Rate : 000 BPM P-R Int : 000 ms QRS Dur : 092 ms QT Int : 456 ms P-R-T Axes : 000 -11 066 degrees QTc Int : 482 ms Sinus rhythm with sinus arrhythmia Low voltage QRS Prolonged QT Abnormal ECG When compared with ECG of 19-OCT-2022 23:45, No significant change Confirmed by Pradeep Nichols ([id number]) on 10/21/2022 9:46:30 PM Referred By: REFERRED SELF Confirmed By:Pradeep Nichols
[2022-10-22 07:16] LABS: Basophils # (auto) 0.03 K/uL (0-0.2); Basophils % (auto) 0.6 %; Eosinophils # (auto) 0.18 K/uL (0-0.50); Eosinophils % (auto) 3.6 %; Hematocrit (blood only) 32.8 % (37.0-47.0); Immature Granulocytes # (auto) 0.02 K/uL (0.01-0.20); Immature Granulocytes % (auto) 0.4 %; Mean Corpuscular Hemoglobin 31.1 pg (25.0-34.0); Mean Corpuscular Hgb Conc 33.5 g/dL (32.0-36.0); Mean Corpuscular Volume 92.7 fL (80.0-100.0); Monocytes # (auto) 0.54 K/uL (0.11-0.59); Monocytes % (auto) 10.8 %; Neutrophils # (auto) 2.63 K/uL (1.40-6.50); Neutrophils % (auto) 52.6 %; Platelet Count 201 K/uL (130-400); RDW Coefficient of Variation 14.5 % (11.5-14.5); RDW Standard Deviation 49.1 fL (36.4-46.3); Red Blood Count 3.54 M/uL (4.20-5.40)
[2022-10-22 07:44] LABS: Albumin Level 3.2 gm/dl (3.4-5.0); BUN Creatinine Ratio 37.5 (10-20); Calcium 9.1 mg/dl (8.6-10.3); Creatinine Clr Calc Pharmacy 41.4 ml/min; Est GFR (African American) 54.5 ml/min; Magnesium 1.6 mg/dl (1.7-2.4); Phosphorus 2.8 mg/dl (2.5-4.9); Potassium 3.8 mmol/L (3.5-5.1)
[2022-10-22] MEDS ORDERED: MAGNESIUM SULFATE / D5W 1 GM/100 ML BAG IV ONE (08:30)
[2022-10-22] MEDS: THIAMINE HCL 100 MG TAB PO SCH (08:40)
[2022-10-22] MEDS: ASCORBIC ACID 500 MG TAB PO SCH (08:40)
[2022-10-22] MEDS: FERROUS SULFATE 325 MG TAB PO SCH (08:40)
[2022-10-22] MEDS ORDERED: AMOXICILLIN/CLAVULANATE 875 MG TAB PO ONE (13:02)
--- NOTE | 2022-10-22 14:01 | Hospitalist Progress Note ---
Date of Service October 22, 2022 Assessment & Plan (1) Encephalopathy: Plan: patient has intermittent explosive changes in personality which she does recall metabolic work-up for encephalopathy reveals alpha strep UTI present on admission instituting oral Augmentin therapy family notes sleep deprivation at home reviewed good results with 1 dose of Seroquel 25 we will continue this at bedtime physical therapy does note a 40% mobility loss and are recommending acute rehab (2) PMR (polymyalgia rheumatica): Plan: Polymyalgia rheumatica type symptoms- Patient with several month interval of generalized weakness, fatigue, multiple myalgias and arthralgias, intermittent headaches, progressive ambulatory dysfunction Patient in ED had negative testing for COVID, flu and RSV. Chest x-ray was neg ative. CT head without contrast was negative. MRI of brain did not show acute findings Lyme antibody testing was negative. Anaplasmosis smear is negative with anaplasmosis antibodies ordered ESR has been added and negative Pending studies that been added: Rheumatoid factor, SANDRA, HLA-B27. Random urine cortisol is 21 Of note, her daughter reports that she herself has recently been diagnosed with ankylosing spondylitis Symptoms are most consistent at this point with PMR, concerns for intermittent confusion and delirium may be cautious about considering steroid pulse dosing at this time With regard to possible delirium patient given thiamine and urine cultures pending (3) COPD (chronic obstructive pulmonary disease): Plan: Chronic and stable remains on albuterol and ipratropium Plan PT OT evaluation Admission and Anticipated Discharge Date Admission Date: October 20, 2022 Subjective pt did have a good night, does not feel hungover in am after seroquel, is wanting to try it again, resulted to have an alpha strep uti, poa, instituted on augmentin Physical Exam Physical Exam: Patient awake and alert lungs are clear heart is regular abdomen NABS soft no suprapubic tenderness extremities are with trace edema and tender to touch Results & Data Results & Data Vital Signs (Past 12 Hours) Vital Signs Temp Pulse Resp BP Pulse Ox O2 Del Method 10/22/22 07:44 97.7 F 80 16 112/72 96 Room Air Laboratory Results reviewed urine culture from 10/20 resulted with greater than 100,000 alpha strep reviewed CBC reviewed chemistry PG Care Time/CCT Total # of Minutes Spent Total Time Spent with Patient: Total time spent is greater than 50% in coordination of care (as documented) at patient's floor/unit and/or counseling patient: Coding Level of Care Code 64982 SUB INP/OBS CARE 235MIN Diagnoses Encephalopathy G93.40 PMR (polymyalgia rheumatica) M35.3 COPD (chronic obstructive pulmonary disease) 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
[2022-10-22] MEDS: AMOXICILLIN/CLAVULANATE 875 MG TAB PO SCH (18:00)
[2022-10-22] MEDS ORDERED: QUEtiapine FUMARATE 25 MG TABLET PO SCH (21:00)
[2022-10-22] MEDS ORDERED: KETOROLAC TROMETHAMINE 15 MG/ML VIAL IV ONE (22:10)
[2022-10-23] MEDS: SODIUM CHLORIDE 0.9% 1000ML 1,000 ML IV SCH ×2 (09:13→21:38)
[2022-10-23] MEDS: ASCORBIC ACID 500 MG TAB PO SCH (09:13)
[2022-10-23] MEDS: AMOXICILLIN/CLAVULANATE 875 MG TAB PO SCH ×2 (09:13→16:58)
[2022-10-23] MEDS: THIAMINE HCL 100 MG TAB PO SCH (09:13)
[2022-10-23] MEDS: FERROUS SULFATE 325 MG TAB PO SCH (09:13)
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
--- NOTE | 2022-10-23 18:25 | XCELERA ---
[id number]
[2022-10-23] MEDS ORDERED: KETOROLAC TROMETHAMINE 15 MG/ML VIAL IV ONE (23:18)
[2022-10-24] MEDS: AMOXICILLIN/CLAVULANATE 875 MG TAB PO SCH ×2 (07:39→15:59)
[2022-10-24] MEDS: FERROUS SULFATE 325 MG TAB PO SCH (07:40)
[2022-10-24] MEDS: THIAMINE HCL 100 MG TAB PO SCH (07:40)
[2022-10-24] MEDS: ASCORBIC ACID 500 MG TAB PO SCH (07:40)
[2022-10-24 09:53] LABS: Hemoglobin 10.7 g/dl (12.0-16.0); Mean Corpuscular Hemoglobin 31.3 pg (25.0-34.0); Mean Corpuscular Hgb Conc 33.4 g/dL (32.0-36.0); Mean Corpuscular Volume 93.6 fL (80.0-100.0); Platelet Count 194 K/uL (130-400); RDW Coefficient of Variation 14.8 % (11.5-14.5); RDW Standard Deviation 50.7 fL (36.4-46.3); Red Blood Count 3.42 M/uL (4.20-5.40)
[2022-10-24 10:11] LABS: Albumin Globulin Ratio 1.5 (0.9-2); Albumin Level 3.2 gm/dl (3.4-5.0); BUN Creatinine Ratio 44.9 (10-20); Bilirubin,Total 0.4 mg/dl (0.2-1.0); Calcium 8.8 mg/dl (8.6-10.3); Creatinine Clr Calc Pharmacy 43.4 ml/min; Est GFR (African American) 57.6 ml/min; Est GFR (Non-African American) 49.7 ml/min; Globulin 2.2 gm/dl (2.5-4.0); Total Protein 5.4 gm/dl (6.0-8.3)
--- NOTE | 2022-10-24 16:51 | Hospitalist Progress Note ---
Date of Service October 24, 2022 Assessment & Plan (1) Encephalopathy: Plan: patient has intermittent explosive changes in personality which she does recall metabolic work-up for encephalopathy reveals alpha strep UTI present on admission instituting oral Augmentin therapy So far other causes of encephalopathy have been evaluated including thyroid being normal and cortisol being normal checking for infectious with Lyme disease and tickborne illnesses being negative, inflammatory markers being negative, viral testing of COVID flu and RSV negative, chest x-ray negative, head CT and MRI of the brain without acute findings but there is notation of moderate to severe small vessel disease noted B1 testing is pending patient instituted on thiamine therapy Oxybutynin has been discontinued as this can cause dizziness and confusion Note given some postural episodes of dizziness confusion and blurry vision will moved to medical telemetry, no correlating arrhythmia, echocardiogram with significant valvular disease, no correlate orthostatic blood pressure readings Patient has mild transaminitis stopping Tylenol therapy at this time Augmentin is a rare irritation with liver we will stop Augmentin at this time, may continue Keflex p.o. to complete total of 3 days total therapy For probability of issues with sleep deprivation and delirium we will continue Seroquel dosing at night physical therapy does note a 40% mobility loss and are recommending acute rehab (2) PMR (polymyalgia rheumatica): Plan: Polymyalgia rheumatica type symptoms- Patient with several month interval of generalized weakness, fatigue, multiple myalgias and arthralgias, intermittent headaches, progressive ambulatory dysfunction Of note, her daughter reports that she herself has recently been diagnosed with ankylosing spondylitis Symptoms are most consistent at this point with PMR, concerns for intermittent confusion and delirium may be cautious about considering steroid pulse dosing at this time With regard to possible delirium patient given thiamine and urine cultures show alpha strep no sensitivities will be treated (3) COPD (chronic obstructive pulmonary disease): Plan: Chronic and stable remains on albuterol and ipratropium Plan Was guarded chronic persistent diarrhea recommend outpatient colonoscopy testing. Patient be given cholestyramine and fiber agents at this time PT OT evaluation Admission and Anticipated Discharge Date Admission Date: October 20, 2022 Subjective Patient herself has complaints of blurry vision when further questioning this is been going on for some time the patient has acuity but peripheral vision loss and she has not seen an eye doctor for years. This does not seem to be postural it is intermittent. She can have good central acuity during these events. There is no orthostasis today On 10/24 her biggest complaint seems to revolve around watery diarrhea which she has had for some months Physical Exam Physical Exam: Patient awake and alert, forgetful at times but recalls events of her "spells" Her blurry vision upon confrontation did not seem to bear out or dizziness or instability also likewise is not vertiginous nor correlating with orthostatic blood pressure changes lungs are clear heart is regular abdomen NABS soft no suprapubic tenderness extremities are with trace edema and tender to touch Results & Data Results & Data Vital Signs (Past 12 Hours) Vital Signs Temp Pulse Pulse Resp BP Pulse Ox O2 Del Method 10/24/22 15:39 96.4 F L 78 17 125/77 97 Room Air 10/24/22 13:39 68 16 136/68 97 Room Air 10/24/22 08:03 97.9 F 94 H 18 121/77 95 Room Air 10/24/22 08:02 97.9 F 73 16 146/76 H 98 Room Air 10/24/22 07:26 Room Air 10/24/22 07:07 87 Laboratory Results Reviewed CBC reviewed chemistry PG Care Time/CCT Total # of Minutes Spent Total Time Spent with Patient: Total time spent is greater than 50% in coordination of care (as documented) at patient's floor/unit and/or counseling patient: Coding Level of Care Code 11861 SUB INP/OBS CARE 3/50MIN Diagnoses Encephalopathy G93.40 PMR (polymyalgia rheumatica) M35.3 COPD (chronic obstructive pulmonary disease) 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
[2022-10-24] MEDS ORDERED: PSYLLIUM or GUAR GUM FIBER POWDER PACKET PO ONE (17:00)
[2022-10-24] MEDS: cephALEXin 500 MG CAP PO SCH ×2 (18:01→20:49)
--- NOTE | 2022-10-24 18:51 | Hospitalist Progress Note ---
Date of Service October 24, 2022 Assessment & Plan (1) Encephalopathy: Plan: patient has intermittent explosive changes in personality which she does recall metabolic work-up for metabolic encephalopathy reveals alpha strep UTI present on admission instituting oral Augmentin therapy Metabolic encephalopathy In the setting of UTI So far other causes of encephalopathy have been evaluated including thyroid being normal and cortisol being normal checking for infectious with Lyme disease and tickborne illnesses being negative, inflammatory markers being negative, viral testing of COVID flu and RSV negative, chest x-ray negative, head CT and MRI of the brain without acute findings but there is notation of moderate to severe small vessel disease noted B1 testing is pending patient instituted on thiamine therapy Oxybutynin has been discontinued as this can cause dizziness and confusion Note given some postural episodes of dizziness confusion and blurry vision will moved to medical telemetry, no correlating arrhythmia, echocardiogram with significant valvular disease, no correlate orthostatic blood pressure readings Patient has mild transaminitis stopping Tylenol therapy at this time Augmentin is a rare irritation with liver we will stop Augmentin at this time, may continue Keflex p.o. to complete total of 3 days total therapy For probability of issues with sleep deprivation and delirium we will continue Seroquel dosing at night physical therapy does note a 40% mobility loss and are recommending acute rehab (2) PMR (polymyalgia rheumatica): Plan: Polymyalgia rheumatica type symptoms- Patient with several month interval of generalized weakness, fatigue, multiple myalgias and arthralgias, intermittent headaches, progressive ambulatory dysfunction Of note, her daughter reports that she herself has recently been diagnosed with ankylosing spondylitis Symptoms are most consistent at this point with PMR, concerns for intermittent confusion and delirium may be cautious about considering steroid pulse dosing at this time With regard to possible delirium patient given thiamine and urine cultures show alpha strep no sensitivities will be treated (3) COPD (chronic obstructive pulmonary disease): Plan: Chronic and stable remains on albuterol and ipratropium Plan Was guarded chronic persistent diarrhea recommend outpatient colonoscopy testing. Patient be given cholestyramine and fiber agents at this time PT OT evaluation Admission and Anticipated Discharge Date Admission Date: October 20, 2022 Results & Data Results & Data Vital Signs (Past 12 Hours) Vital Signs Temp Pulse Pulse Resp BP Pulse Ox O2 Del Method 10/24/22 15:39 96.4 F L 78 17 125/77 97 Room Air 10/24/22 13:39 68 16 136/68 97 Room Air 10/24/22 08:03 97.9 F 94 H 18 121/77 95 Room Air 10/24/22 08:02 97.9 F 73 16 146/76 H 98 Room Air 10/24/22 07:26 Room Air 10/24/22 07:07 87 PG Care Time/CCT Total # of Minutes Spent Total Time Spent with Patient: Total time spent is greater than 50% in coordination of care (as documented) at patient's floor/unit and/or counseling patient: Coding Level of Care Code None Diagnoses Encephalopathy G93.40 PMR (polymyalgia rheumatica) M35.3 COPD (chronic obstructive pulmonary disease) 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
[2022-10-24] MEDS ORDERED: QUEtiapine FUMARATE 25 MG TABLET PO SCH (21:00)
[2022-10-24] MEDS: CHOLESTYRAMINE LIGHT 4 GM PKT PO SCH (22:00)
[2022-10-25] MEDS: THIAMINE HCL 100 MG TAB PO SCH (06:58)
[2022-10-25] MEDS: ASCORBIC ACID 500 MG TAB PO SCH (06:58)
[2022-10-25] MEDS: cephALEXin 500 MG CAP PO SCH ×4 (06:58→21:52)
[2022-10-25] MEDS: FERROUS SULFATE 325 MG TAB PO SCH (06:58)
[2022-10-25] MEDS: PSYLLIUM or GUAR GUM FIBER POWDER PACKET PO SCH (06:59)
[2022-10-25 07:25] LABS: Albumin Globulin Ratio 1.3 (0.9-2); Albumin Level 2.9 gm/dl (3.4-5.0); BUN Creatinine Ratio 45.3 (10-20); Bilirubin,Total 0.3 mg/dl (0.2-1.0); Creatinine Clr Calc Pharmacy 48.8 ml/min; Est GFR (African American) 66.5 ml/min; Est GFR (Non-African American) 57.4 ml/min; Globulin 2.2 gm/dl (2.5-4.0); Potassium 4.5 mmol/L (3.5-5.1); Total Protein 5.1 gm/dl (6.0-8.3)
[2022-10-25] MEDS: CHOLESTYRAMINE LIGHT 4 GM PKT PO SCH ×2 (09:15→21:52)
--- NOTE | 2022-10-25 16:22 | Hospitalist Progress Note ---
Date of Service October 25, 2022 Assessment & Plan (1) Encephalopathy: Plan: patient has intermittent explosive changes in personality which she does recall metabolic work-up for metabolic encephalopathy reveals alpha strep UTI present on admission instituting oral Augmentin therapy Metabolic encephalopathy In the setting of UTI So far other causes of encephalopathy have been evaluated including thyroid being normal and cortisol being normal checking for infectious with Lyme disease and tickborne illnesses being negative, inflammatory markers being negative, viral testing of COVID flu and RSV negative, chest x-ray negative, head CT and MRI of the brain without acute findings but there is notation of moderate to severe small vessel disease noted B1 testing is pending patient instituted on thiamine therapy Oxybutynin has been discontinued as this can cause dizziness and confusion Note given some postural episodes of dizziness confusion and blurry vision will moved to medical telemetry, no correlating arrhythmia, echocardiogram with significant valvular disease, no correlate orthostatic blood pressure readings Patient has mild transaminitis improved after stopping Tylenol therapy and Augmentin continue Keflex p.o. to complete total of 3 days total therapy For probability of issues with sleep deprivation and delirium we will continue Seroquel dosing at night physical therapy does note a 40% mobility loss and are recommending acute rehab (2) PMR (polymyalgia rheumatica): Plan: Polymyalgia rheumatica type symptoms- Patient with several month interval of generalized weakness, fatigue, multiple myalgias and arthralgias, intermittent headaches, progressive ambulatory dysfunction Of note, her daughter reports that she herself has recently been diagnosed with ankylosing spondylitis Symptoms are most consistent at this point with PMR, concerns for intermittent confusion and delirium may be cautious about considering steroid pulse dosing at this time With regard to possible delirium patient given thiamine and urine cultures show alpha strep no sensitivities will be treated (3) COPD (chronic obstructive pulmonary disease): Plan: Chronic and stable remains on albuterol and ipratropium Plan Was guarded chronic persistent diarrhea recommend outpatient colonoscopy testing. Patient be given cholestyramine and fiber agents at this time PT OT evaluation Admission and Anticipated Discharge Date Admission Date: October 20, 2022 Subjective Patient has no obvious focal complaints tries to recall whether she is having blurry vision or diarrhea does not look physically remember having these today patient seems to be in a stable condition we will consider preparing for eventual transition to jail facility for subacute rehab Physical Exam Physical Exam: Patient awake and alert, forgetful at times today patient cannot recall the event of her spells or initial hallucinations that brought her into the hospital Patient cannot specifically recall having any blurry vision or dizziness over the last few hours lungs are clear heart is regular abdomen NABS soft no suprapubic tenderness extremities are with trace edema and tender to touch Results & Data Results & Data Vital Signs (Past 12 Hours) Vital Signs Temp Pulse Pulse Resp BP Pulse Ox O2 Del Method 10/25/22 15:53 96.3 F L 75 16 133/86 97 Room Air 10/25/22 15:35 78 10/25/22 11:34 98.2 F 87 16 123/71 94 Room Air 10/25/22 08:13 Room Air 10/25/22 07:22 77 10/25/22 07:19 98.2 F 92 H 18 127/76 94 Room Air Laboratory Results Reviewed CBC reviewed chemistry Mild to moderate protein malnutrition noted on chemistry PG Care Time/CCT Total # of Minutes Spent Total Time Spent with Patient: Total time spent is greater than 50% in coordination of care (as documented) at patient's floor/unit and/or counseling patient: Coding Level of Care Code 92266 SUB INP/OBS CARE 2/35MIN Diagnoses Encephalopathy G93.40 PMR (polymyalgia rheumatica) M35.3 COPD (chronic obstructive pulmonary disease) 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
[2022-10-25] MEDS: MELATONIN 3 MG TAB PO SCH (21:52)
[2022-10-26] MEDS: THIAMINE HCL 100 MG TAB PO SCH (07:34)
[2022-10-26] MEDS: cephALEXin 500 MG CAP PO SCH ×4 (07:34→21:48)
[2022-10-26] MEDS: PSYLLIUM or GUAR GUM FIBER POWDER PACKET PO SCH (07:35)
[2022-10-26] MEDS: FERROUS SULFATE 325 MG TAB PO SCH (07:35)
[2022-10-26] MEDS: ASCORBIC ACID 500 MG TAB PO SCH (07:35)
[2022-10-26] MEDS: CHOLESTYRAMINE LIGHT 4 GM PKT PO SCH (10:32)
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
--- NOTE | 2022-10-26 17:08 | Hospitalist Progress Note ---
Date of Service October 26, 2022 Assessment & Plan (1) Encephalopathy: Plan: PT with decline at home, headaches, myagias, released from ER 10/19/22 and had delerium and returned patient has intermittent explosive changes in personality which she does recall including visual hallucinations metabolic work-up for metabolic encephalopathy reveals alpha strep UTI present on admission treated wtih antibiotics Metabolic encephalopathy In the setting of UTI So far other causes of encephalopathy have been evaluated INclude tsh normal cortisol normal Lyme disease and tickborne illnesses being negative, inflammatory markers being negative, viral testing of COVID flu and RSV negative, chest x-ray negative, head CT and MRI of the brain without acute findings but there is notation of moderate to severe small vessel disease noted B12 and Folate normal immunoglobulin with decreased free light chain but nutritional markers are low consistent with decline at home of nutrition, monoclonal proteins negative B1 testing is pending patient instituted on thiamine therapy Oxybutynin has been discontinued as this can cause dizziness and confusion Note given some postural episodes of dizziness confusion and blurry vision will moved to medical telemetry, no correlating arrhythmia, echocardiogram with significant valvular disease, no correlation orthostatic blood pressure readings Patient has mild transaminitis improved after stopping Tylenol therapy and Augmentin continue Keflex p.o. to complete total of 3 days total therapy For probability of issues with sleep deprivation and delirium we tried Seroquel dosing at night, improved sleep but daytime drowsiness, now on melatonin Daughter requested HLAB27 test as she herself is positive, this is positive in the patient but no complaints of bone or tendon pain at this time physical therapy does note a 57% mobility loss and are recommending rehab (2) PMR (polymyalgia rheumatica): Plan: Polymyalgia rheumatica type symptoms-initially painful legs, no medication instituted, does have HLAB27 positivity but leg muscle pain has improved, ESR n ormal on 10/19 Patient with several month interval of generalized weakness, fatigue, multiple myalgias and arthralgias, intermittent headaches, progressive ambulatory dysfunction Of note, her daughter reports that she herself has recently been diagnosed with ankylosing spondylitis Symptoms are most consistent at this point with PMR, concerns for intermittent confusion and delirium may be cautious about considering steroid pulse dosing at this time (3) COPD (chronic obstructive pulmonary disease): Plan: Chronic and stable remains on albuterol and ipratropium Plan chronic persistent diarrhea recommend outpatient colonoscopy testing. no help subjectively wtih cholestyramine and fiber, not significant enough for imodium PT OT are following notified Service excellence, regarding family concern Admission and Anticipated Discharge Date Admission Date: October 20, 2022 Subjective pt seems to have no focal complaints, did have less daytime drowsiness with switch from seroquel to melatonin for sleep, did eventually have pessary changed 10/26/22 Daughter is at the bedside and has concerns about many things, PT recommends subacute rehab Physical Exam Physical Exam: Patient awake and alert, discussed sleep , vision and diarrhea, pt does not feel that diarrhea has improved with cholestid, will stop Patient cannot specifically recall having any blurry vision or dizziness today lungs are clear heart is regular abdomen NABS soft no suprapubic tenderness extremities are with trace edema and tender to touch Results & Data Results & Data Vital Signs (Past 12 Hours) Vital Signs Temp Pulse Resp BP Pulse Ox O2 Del Method 10/26/22 14:24 65 20 102/61 96 Room Air 10/26/22 07:50 Room Air 10/26/22 07:28 97.3 F L 61 16 121/65 96 Room Air PG Care Time/CCT Total # of Minutes Spent Total Time Spent with Patient: Total time spent is greater than 50% in coordination of care (as documented) at patient's floor/unit and/or counseling patient: Coding Level of Care Code 89924 SUB INP/OBS CARE 2/35MIN Diagnoses Encephalopathy G93.40 PMR (polymyalgia rheumatica) M35.3 COPD (chronic obstructive pulmonary disease) 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
[2022-10-26] MEDS ORDERED: KETOROLAC TROMETHAMINE 15 MG/ML VIAL IV ONE (21:42)
[2022-10-26] MEDS: MELATONIN 3 MG TAB PO SCH (21:48)
[2022-10-27] MEDS: cephALEXin 500 MG CAP PO SCH ×2 (07:51→12:17)
[2022-10-27] MEDS: PSYLLIUM or GUAR GUM FIBER POWDER PACKET PO SCH (07:51)
[2022-10-27] MEDS: THIAMINE HCL 100 MG TAB PO SCH (07:51)
[2022-10-27] MEDS: ASCORBIC ACID 500 MG TAB PO SCH (07:51)
[2022-10-27] MEDS: FERROUS SULFATE 325 MG TAB PO SCH (07:51)
--- NOTE | 2022-10-27 13:15 | Discharge Summary ---
Date of Service October 27, 2022 Admission HPI Per Admitting Provider The patient is a 76-year-old female with a past medical history including dementia, generalized weakness, iron deficiency anemia, CKD, vaginal prolapse, history of UTI, lower extremity edema, hyperlipidemia, COPD and hypertension. The patient has a history of dementia, and is able to contribute at least moderately to her HPI and ROS, but her daughter helps to bring forward the most important points. The daughter and patient both seem to feel that her her issues are as noted in the HPI, the become more progressive and affecting her ability to take care of herself and her ADLs. The daughter is concerned that s zack she has been with her mother at the end of May, that not enough attention has been paid to her general physical state. Principal Diagnosis metabolic encephalopathy Discharge Exam Patient awake and alert, lungs are clear heart is regular abdomen NABS soft no suprapubic tenderness extremities are with trace edema and tender to touch Discharge Data Allergies Allergy/AdvReac Type Severity Reaction Status Date / Time latex Allergy Intermediate RASH ON Verified 10/19/22 23:36 ARMS WITH GLOVES nickel Allergy Intermediate RASH Verified 10/19/22 23:36 Consultations 10/20/22 00:29 ED Decision to Admit Stat 10/23/22 17:22 Consult Patient Services Routine 10/26/22 11:02 Consult Gynecology Routine Hospital Course (1) Encephalopathy: PT with decline at home, headaches, myagias, released from ER 10/19/22 and had delerium and returned patient has intermittent explosive changes in personality which she does recall including visual hallucinations metabolic work-up for metabolic encephalopathy reveals alpha strep UTI present on admission treated [facility] antibiotics Metabolic encephalopathy In the setting of UTI So far other causes of encephalopathy have been evaluated INclude tsh normal cortisol normal Lyme disease and tickborne illnesses being negative, inflammatory markers being negative, viral testing of COVID flu and RSV negative, chest x-ray negative, head CT and MRI of the brain without acute findings but there is notation of moderate to severe small vessel disease noted B12 and Folate normal immunoglobulin with decreased free light chain but nutritional markers are low consistent with decline at home of nutrition, monoclonal proteins negative B1 testing is pending patient instituted on thiamine therapy Oxybutynin has been discontinued as this can cause dizziness and confusion Note given some postural episodes of dizziness confusion and blurry vision will moved to medical telemetry, no correlating arrhythmia, echocardiogram with significant valvular disease, no correlation orthostatic blood pressure readings Patient has mild transaminitis improved after stopping Tylenol therapy and Augmentin, transitioned to Keflex p.o. Patient received 5 days of treatment. For probability of issues with sleep deprivation and delirium we tried Seroquel dosing at night, improved sleep but daytime drowsiness, now on melatonin Daughter requested HLAB27 test as she herself is positive, this is positive in the patient but no complaints of bone or tendon pain at this time physical therapy does note a 57% mobility loss and are recommending rehab (2) PMR (polymyalgia rheumatica): Polymyalgia rheumatica type symptoms-initially painful legs, no medication instituted, does have HLAB27 positivity but leg muscle pain has improved, ESR normal on 10/19 Patient with several month interval of generalized weakness, fatigue, multiple myalgias and arthralgias, intermittent headaches, progressive ambulatory dysfunction Of note, her daughter reports that she herself has recently been diagnosed with ankylosing spondylitis Symptoms are most consistent at this point with PMR, concerns for intermittent confusion and delirium may be cautious about considering steroid pulse dosing at this time. will defer to PCP at followup . (3) COPD (chronic obstructive pulmonary disease): Chronic and stable remains on albuterol and ipratropium Plan chronic persistent diarrhea recommend outpatient colonoscopy testing. no help subjectively wtih cholestyramine and fiber, not significant enough for imodium PT OT are following notified Service excellence, regarding family concern Total Time Total Time Spent Total Time Spent (In Minutes): 32 Discharge Plan Discharge Items Patient Disposition: Transfer Residential Fac Reason For Visit: PROGRESSIVE MYALGIAS,FATIGUE,AMBULATORY DYSFUNCTIO Discharge Diagnosis: p[rogressive myalgias Activity: Resume your previous activity Non-emergency contact: Primary Care Provider Call non-emergency contact if: you have any medication questions Follow-up/Referrals: Katherine Chen MD [Primary Care Provider] - Diet: Regular Addtl Attending Provider Instructions: You have been hospitalized for an acute medical problem. During your stay at [facility], we have made an effort to correct the problem that brought you to the hospital while keeping you as comfortable as possible. Medications were used to bring your condition under control and your discharge instructions will include directions for any medications you should take after leaving the hospital. Please make sure you see your Primary Care Provider as part of your follow up plan. Given the metabolic encephalopathy, we will hold the oxybutynin, and treated for a possible UTI. Confusion can linger days to weeks after removing or treating the inciting factor. This is a slow recovery and can be very frustrating for families and loved ones. Will recommend followup with PCP in 1-2 weeks. Pending Studies at Discharge: No Stand-Alone Forms: [facility] Skilled Items Patient informed of condition?: No DNR: Yes Discharge Level of Care: Other Communicable Disease: No Discharge Prognosis: Stable Lines: None Urinary Catheter: No Medications and DC Order Prescriptions: New melatonin 3 mg Tablet 3 mg PO HS Qty: 30 0RF thiamine HCl (vitamin B1) 100 mg Tablet 100 mg PO QAM Qty: 30 0RF psyllium husk [Daily Fiber] 0.4 gram capsule 0.4 g PO DAILY Qty: 30 0RF Continued ferrous sulfate 325 mg (65 mg iron) tablet 325 mg PO DAILY Qty: 90 3RF Rx Instructions: take with Vitamin C. Combivent Respimat 20-100 mcg/actuation mist 1 puff inhalation BID Qty: 4 2RF acetaminophen 500 mg tablet 1,000 mg PO Q8 PRN (Reason: Pain) ascorbic acid (vitamin C) [Vitamin C] 500 mg Tablet 500 mg PO DAILY naproxen sodium [Aleve] 220 mg Tablet 220 mg PO Q8H PRN (Reason: Pain) Discontinued hydrochlorothiazide 12.5 mg tablet 12.5 mg PO DAILY Qty: 90 2RF ibuprofen 200 mg Tablet 400 mg PO DIRECTED PRN (Reason: Pain) oxybutynin chloride 5 mg tablet extended release 24hr 5 mg PO QAM Discharge Orders: Discharge Order (Routine); Ordered 10/27/22 Ordered By: Ajay Antonio Admission Data Admit Date/Time: 10/20/22 12:24 Attending Provider: Ajay Antonio Admit Provider: Juan Daniel Rosado Primary Care Provider: Katherine Chen Other Providers: Juan Daniel Rosado ; Rony Chávez ; Maria Teresa Weaver ; Tomasa Mares ; Toney Morrison ; Renea Cabrera ; Lc Valdez ; Prosper Palencia ; Shantell Sanchez ; Sruthi Sanchez ; Lupe Anders ; Mariella Fall ; Raysa Leija ; Mercy Farr ; Archana Mcbride ; Hebert Lopez ; Kelly Loredo ; [facility], Other Interventions: Discharge Summary Assessment (RN) Last Done: 10/27/22 12:56 Coding Level of Care Code 43645 INP/OBS DISCH >30 MIN Diagnoses Encephalopathy G93.40 PMR (polymyalgia rheumatica) M35.3 COPD (chronic obstructive pulmonary disease) J43.9 COPD type: emphysema Emphysema type: unspecified
== END 2022-10-27 16:10 | DRG 689 ==
LOC: ED 23:31 → 3W 23:31 → SUATTDRO 10-20 01:11 → 3W 10-20 01:41 → SUATTDRO 10-20 12:24 → 3N 10-20 14:46 → 2N 10-23 15:54

== ENCOUNTER 2022-10-29 02:52 | Inpatient (IN) ==
[2022-10-29 04:05] LABS: Appearance Urine Cloudy (Clear); Bacteria Urine Automated 1+ (Negative); Bilirubin Urine Negative (Negative); Blood Urine 3+ (Negative); Color Urine Yellow; Glucose Urine UA Negative (Negative); Ketones Urine Trace (Negative); Leukocyte Esterase Urine 3+ (Negative); Nitrite Urine Negative (Negative); Protein Urine 1+ (Negative); Specific Gravity Urine 1.014 (1.000-1.030); Urobilinogen Urine Negative (Negative); WBC Urine Automated >30 /hpf (0-5)
[2022-10-29 04:23] LABS: Basophils # (auto) 0.04 K/uL (0-0.2); Basophils % (auto) 0.5 %; Eosinophils % (auto) 1.4 %; Hematocrit (blood only) 33.8 % (37.0-47.0); Hemoglobin 11.6 g/dl (12.0-16.0); Immature Granulocytes # (auto) 0.02 K/uL (0.01-0.20); Immature Granulocytes % (auto) 0.3 %; Lymphocytes # (auto) 1.01 K/uL (1.2-3.4); Lymphocytes % (auto) 13.9 %; Mean Corpuscular Hemoglobin 31.4 pg (25.0-34.0); Mean Corpuscular Hgb Conc 34.3 g/dL (32.0-36.0); Mean Corpuscular Volume 91.6 fL (80.0-100.0); Mean Platelet Volume 9.2 fL (9.4-12.4); Monocytes # (auto) 0.61 K/uL (0.11-0.59); Monocytes % (auto) 8.4 %; Neutrophils # (auto) 5.51 K/uL (1.40-6.50); Neutrophils % (auto) 75.5 %; Platelet Count 314 K/uL (130-400); RDW Coefficient of Variation 14.6 % (11.5-14.5); RDW Standard Deviation 49.3 fL (36.4-46.3); Red Blood Count 3.69 M/uL (4.20-5.40); White Blood Count 7.29 K/ul (4.8-10.8)
--- NOTE | 2022-10-29 04:34 | Emergency Department Note ---
Impression & Plan Acute UTI, Encephalopathy Admit to the [facility] ED Provider Note NAME: SHELLEY HARRISON AGE: 76 SEX: F ARRIVES VIA: Ambulance INFORMANT: Patient's daughter ED PROVIDER(S): Flavia Rey DO CHIEF COMPLAINT: Altered mental status PLAN: Disposition: Admit to the [facility] Condition: Fair MEDICAL DECISION MAKING: This is a 76-year-old female patient from [facility] who presents to the emergency department with declining mental status throughout the day today. Patient had a lengthy inpatient hospitalization at our facility over the past 8 to 10 days and was discharged to [facility]. Much of the history was obtained from the patient's daughter who is at the bedside and by reviewing the medical records. The daughter explains that her mental status has declined dramatically today and she is concerned that she may have developed a urinary tract infection . Laboratory studies reveal no significant leukocytosis but urinalysis did reveal Evidence of a UTI. Transaminases are still slightly elevated and alkaline phosphatase is high. Patient was given a dose of IV cefepime. Patient also appeared markedly dehydrated on physical exam and was started on IV normal saline solution. I believe the patient's urinary tract infection has given her recurrent encephalopathy similar to her mental status during her previous hospitalization. I discussed the case with the [facility] and they will evaluate for further inpatient care. Triage Nursing notes reviewed and agree with them. Additional history obtained from patient's daughter who is arrived at the bedside External medical records were reviewed from her prolonged stay here in the hospital as well as the records that accompanied her from [facility]. Vital Signs: reviewed and remarkable for tachycardia Differential diagnosis: UTI, encephalopathy, dehydration, hypoglycemia ER treatment provided: Cardiac monitoring Twelve-lead EKG IV normal saline bolus IV cefepime Diagnostics independently interpreted by me: ECG: Normal sinus rhythm at a rate of [address] segment elevation or signs of ischemia. There is no ectopy. Cardiac Monitoring: Normal sinus rhythm at a rate of 97. Laboratory studies: See below Imaging studies: As per my independent interpretation Portable chest x-ray: No cardiomegaly or pulmonary infiltrates noted. HPI: 76/F arrives for evaluation of worsening mental status. The patient presents from [facility] with a declining mental status The history comes from the patient's daughter. PAST MEDICAL HISTORY:See Below PAST SURGICAL HISTORY:See Below FAMILY HISTORY:See Below SOCIAL HISTORY:Patient resides at [facility] HOME MEDICATIONS:See list ALLERGIES:See list VITALS:See Below PHYSICAL EXAMINATION: HEENT: Head - normocephalic and atraumatic. Pupils are equal, round, and reactive to light. Extraocular eye muscles are intact, and sclera are anicteric. Nose - moist nasal mucosa without discharge. Mouth -dry buccal mucosa. Oropharynx is nonerythematous and there is no tonsillar exudate or edema noted. Neck: Supple; no Cervical lymphadenopathy or JVD Heart: Regular rate and rhythm. There is a normal S1 and S2 with no murmurs, clicks, or gallops appreciated. Lungs: Clear to auscultation bilaterally with no wheezes, rales, or rhonchi. Abdomen: Soft, completely nontender, nondistended, with good bowel sounds. There are no palpable pulsatile masses or hepatosplenomegaly. There is no guarding, rigidity, or rebound noted. Extremities: No evidence of cyanosis, clubbing, or edema. There are easily palpable peripheral pulses. Skin:Pale warm and dry with poor turgor and no rashes. Neuro: patient confused as to place and time. ED COURSE: Times/Reassessments: 255 the patient the patient was evaluated in room C6. A complete history and physical was performed. An IV lock was initiated and labs were drawn as above. An order was placed for continuous cardiac monitoring. The patient was in a normal sinus rhythm at a rate of 97. Twelve-lead EKG was obtained. Patient appears to be dehydrated on physical exam. She was bolused with IV normal saline solution. Patient's daughter arrived in the emergency department. I did have a lengthy conversation with her. Patient was catheterized for urine specimen. Urine appears to be infected. The patient was given a dose of IV cefepime. Patient will be evaluated by the [facility] Hospitalist. Flavia Rey DO Past Med/Surg History Medical History Asthma Benign hypertension Bladder spasms COPD (chronic obstructive pulmonary disease) Hyperlipidemia Osteoporosis Surgical History History of knee replacement Right knee History of oophorectomy LSO History of tonsillectomy S/P tubal ligation Family History Father Stroke Denies family history of Ovarian cancer Prostate cancer Myocardial infarction Breast cancer Colorectal cancer Uterine cancer Social History Smoking Status: Former smoker Age Started Using Tobacco: 18; Age Quit Using Tobacco: 58; packs per day: 1; Second Hand Exposure: No; Do You Dip or Chew Tobacco: No; Hx Alcohol Use: Yes Alcohol type: wine Alcohol Intake Frequency: Monthly or Less Hx Substance Use: No Preferred Language: Belgian Communication Ability: Impaired Hearing Ability: Hard of Hearing Last Inserter Required: No Beliefs That Will Affect Care: None marital status: Current Living Situation: Family current occupational status: retired How many Children do You have: 2 Feels Safe at Home: Yes Childhood Exposure to Second-Hand Smoke: No Diet: regular caffeine: No Dental Care, Regularly: No Physical Activity Frequency: Does not Exercise Seatbelt Use: always Sunscreen Use: Yes Assistive Devices: Walker Allergies Allergies Allergy/AdvReac Type Severity Reaction Status Date / Time latex Allergy Intermediate RASH ON Verified 10/29/22 03:07 ARMS WITH GLOVES nickel Allergy Intermediate RASH Verified 10/29/22 03:07 Home Meds Home Medications Medication Instructions Recorded Confirmed acetaminophen 500 mg tablet 1,000 mg PO Q8 PRN Pain 12/25/18 10/29/22 ascorbic acid (vitamin C) 500 mg 500 mg PO DAILY 10/19/22 10/29/22 tablet (Vitamin C) naproxen sodium 220 mg tablet 220 mg PO Q8H PRN Pain 10/19/22 10/29/22 (Aleve) Previous Rx's Medication Instructions Recorded ferrous sulfate 325 mg (65 mg 325 mg PO DAILY #90 tabs 07/16/21 iron) tablet ipratropium 20 mcg-albuterol 100 1 puff inhalation BID #4 grams 07/18/22 mcg/actuation mist for inhalation (Combivent Respimat) melatonin 3 mg tablet 3 mg PO HS #30 tabs 10/27/22 psyllium husk 0.4 gram capsule 0.4 g PO DAILY #30 caps 10/27/22 (Daily Fiber) thiamine HCl (vitamin B1) 100 mg 100 mg PO QAM #30 tabs 10/27/22 tablet Results & Data (ED) Vital Signs Vital Signs - 24 hr 10/29/22 02:48 10/29/22 02:48 10/29/22 03:01 Temperature 36.6 C Temperature Source Oral Pulse Rate 96 H 102 H Pulse Rate from SpO2 Sensor Pulse Rhythm Respiratory Rate 16 Respiratory Effort / Characteristics Non-Labored Spontaneous Non-Labored Spontaneous Respiratory Depth Normal Normal Blood Pressure 127/99 Blood Pressure Mean 108 Pulse Oximetry 95 Oxygen Delivery Method Room Air Sepsis Recent Fever Within 48 Hours No Sepsis New/Unexplained Change in Mental Status No Sepsis Action Taken by Nursing No Action Required 10/29/22 03:02 10/29/22 03:38 10/29/22 03:00 Temperature Temperature Source Pulse Rate 104 H 100 H Pulse Rate from SpO2 Sensor 99 H Pulse Rhythm Regular Respiratory Rate 16 16 Respiratory Effort / Characteristics Respiratory Depth Blood Pressure 127/99 Blood Pressure Mean 108 Pulse Oximetry 96 96 Oxygen Delivery Method Room Air Room Air Sepsis Recent Fever Within 48 Hours Sepsis New/Unexplained Change in Mental Status Sepsis Action Taken by Nursing 10/29/22 03:10 10/29/22 03:20 10/29/22 03:30 Temperature Temperature Source Pulse Rate 93 H 99 H 96 H Pulse Rate from SpO2 Sensor 94 H 98 H 96 H Pulse Rhythm Respiratory Rate 22 17 16 Respiratory Effort / Characteristics Respiratory Depth Blood Pressure Blood Pressure Mean Pulse Oximetry 96 95 96 Oxygen Delivery Method Sepsis Recent Fever Within 48 Hours Sepsis New/Unexplained Change in Mental Status Sepsis Action Taken by Nursing 10/29/22 03:40 10/29/22 03:50 10/29/22 04:00 Temperature Temperature Source Pulse Rate 97 H 103 H 98 H Pulse Rate from SpO2 Sensor 97 H 104 H 98 H Pulse Rhythm Respiratory Rate 17 15 19 Respiratory Effort / Characteristics Respiratory Depth Blood Pressure Blood Pressure Mean Pulse Oximetry 96 96 96 Oxygen Delivery Method Sepsis Recent Fever Within 48 Hours Sepsis New/Unexplained Change in Mental Status Sepsis Action Taken by Nursing 10/29/22 04:09 10/29/22 04:10 10/29/22 04:20 Temperature Temperature Source Pulse Rate 97 H 102 H 96 H Pulse Rate from SpO2 Sensor 97 H 102 H 97 H Pulse Rhythm Respiratory Rate 16 19 17 Respiratory Effort / Characteristics Respiratory Depth Blood Pressure 148/92 H Blood Pressure Mean 110 Pulse Oximetry 95 95 95 Oxygen Delivery Method Sepsis Recent Fever Within 48 Hours Sepsis New/Unexplained Change in Mental Status Sepsis Action Taken by Nursing 10/29/22 04:30 10/29/22 04:31 10/29/22 04:40 Temperature Temperature Source Pulse Rate 102 H 113 H 108 H Pulse Rate from SpO2 Sensor 103 H 111 H 107 H Pulse Rhythm Respiratory Rate 15 26 H 15 Respiratory Effort / Characteristics Respiratory Depth Blood Pressure Blood Pressure Mean Pulse Oximetry 96 95 96 Oxygen Delivery Method Sepsis Recent Fever Within 48 Hours Sepsis New/Unexplained Change in Mental Status Sepsis Action Taken by Nursing 10/29/22 04:50 10/29/22 05:00 10/29/22 05:10 Temperature Temperature Source Pulse Rate 99 H 107 H 105 H Pulse Rate from SpO2 Sensor 100 H 106 H 105 H Pulse Rhythm Respiratory Rate 14 17 21 Respiratory Effort / Characteristics Respiratory Depth Blood Pressure 151/100 H 152/99 H Blood Pressure Mean 117 116 Pulse Oximetry 95 95 95 Oxygen Delivery Method Sepsis Recent Fever Within 48 Hours Sepsis New/Unexplained Change in Mental Status Sepsis Action Taken by Nursing 10/29/22 05:11 10/29/22 05:20 10/29/22 05:30 Temperature Temperature Source Pulse Rate 103 H 109 H 112 H Pulse Rate from SpO2 Sensor 102 H 109 H 111 H Pulse Rhythm Respiratory Rate 16 27 H 22 Respiratory Effort / Characteristics Respiratory Depth Blood Pressure 145/94 H Blood Pressure Mean 111 Pulse Oximetry 96 96 96 Oxygen Delivery Method Sepsis Recent Fever Within 48 Hours Sepsis New/Unexplained Change in Mental Status Sepsis Action Taken by Nursing 10/29/22 05:40 10/29/22 05:50 Temperature Temperature Source Pulse Rate 104 H 109 H Pulse Rate from SpO2 Sensor 105 H 110 H Pulse Rhythm Respiratory Rate 15 17 Respiratory Effort / Characteristics Respiratory Depth Blood Pressure Blood Pressure Mean Pulse Oximetry 97 95 Oxygen Delivery Method Sepsis Recent Fever Within 48 Hours Sepsis New/Unexplained Change in Mental Status Sepsis Action Taken by Nursing Laboratory Data 10/29/22 03:55 10/29/22 03:55 Lab Results 10/29/22 10/29/22 10/29/22 Range/Units 03:53 03:55 03:55 WBC 7.29 (4.8-10.8) K/ul RBC 3.69 L (4.20-5.40) M/uL Hgb 11.6 L (12.0-16.0) g/dl Hct 33.8 L (37.0-47.0) % MCV 91.6 (80.0-100.0) fL MCH 31.4 (25.0-34.0) pg MCHC 34.3 (32.0-36.0) g/dL RDW Std Deviation 49.3 H (36.4-46.3) fL RDW Coeff of Juani 14.6 H (11.5-14.5) % Plt Count 314 (130-400) K/uL MPV 9.2 L (9.4-12.4) fL Immature Gran % (Auto) 0.3 % Neut % (Auto) 75.5 % Lymph % (Auto) 13.9 % Petroleum % (Auto) 8.4 % Eos % (Auto) 1.4 % Baso % (Auto) 0.5 % Neut # (Auto) 5.51 (1.40-6.50) K/uL Lymph # (Auto) 1.01 L (1.2-3.4) K/uL Petroleum # (Auto) 0.61 H (0.11-0.59) K/uL Eos # (Auto) 0.10 (0-0.50) K/uL Baso # (Auto) 0.04 (0-0.2) K/uL Immature Gran # (Auto) 0.02 (0.01-0.20) K/uL Sodium 139 (136-145) mmol/L Potassium 4.3 (3.5-5.1) mmol/L Chloride 109 H (98-107) mmol/L Carbon Dioxide 21 (21-32) mmol/L Anion Gap 9 (3-11) BUN 29 H (6-23) mg/dl Creatinine 0.78 (0.6-1.2) mg/dl Est Cr Clr Drug Dosing 49.2 ml/min Est GFR ( Amer) 84.4 ml/min Est GFR (Non-Af Amer) 72.8 ml/min BUN/Creatinine Ratio 37.2 H (10-20) Glucose 85 (70-99(Fasting)) mg/dl Lactate (0.4-2.0) mmol/L Calcium 9.8 (8.6-10.3) mg/dl Total Bilirubin 0.4 (0.2-1.0) mg/dl AST 47 H (13-39) U/L ALT 89 H (7-52) U/L Alkaline Phosphatase 324 H (34-104) U/L Total Protein 6.2 (6.0-8.3) gm/dl Albumin 3.5 (3.4-5.0) gm/dl Globulin 2.7 (2.5-4.0) gm/dl Albumin/Globulin Ratio 1.3 (0.9-2) Procalcitonin (0-0.5) ng/ml TSH (0.300-4.500) uIu/ml Urine Color Yellow Urine Appearance Cloudy A (Clear) Urine pH 5.0 (4.5-7.5) Ur Specific [place] 1.014 (1.000-1.030) Urine Protein 1+ H (Negative) Urine Glucose (UA) Negative (Negative) Urine Ketones Trace H (Negative) Urine Blood 3+ H (Negative) Urine Nitrite Negative (Negative) Urine Bilirubin Negative (Negative) Urine Urobilinogen Negative (Negative) Ur Leukocyte Esterase 3+ H (Negative) Urine WBC (Auto) >30 H (0-5) /hpf Urine RBC (Auto) 10-30 H (0-4) /hpf U Hyaline Cast (Auto) 1-5 (0-5) /lpf U Epithel Cells (Auto) 5-10 H (0-5) /lpf Urine Bacteria (Auto) 1+ H (Negative) 10/29/22 10/29/22 10/29/22 Range/Units 03:55 03:55 05:24 WBC (4.8-10.8) K/ul RBC (4.20-5.40) M/uL Hgb (12.0-16.0) g/dl Hct (37.0-47.0) % MCV (80.0-100.0) fL MCH (25.0-34.0) pg MCHC (32.0-36.0) g/dL RDW Std Deviation (36.4-46.3) fL RDW Coeff of Juani (11.5-14.5) % Plt Count (130-400) K/uL MPV (9.4-12.4) fL Immature Gran % (Auto) % Neut % (Auto) % Lymph % (Auto) % Petroleum % (Auto) % Eos % (Auto) % Baso % (Auto) % Neut # (Auto) (1.40-6.50) K/uL Lymph # (Auto) (1.2-3.4) K/uL Petroleum # (Auto) (0.11-0.59) K/uL Eos # (Auto) (0-0.50) K/uL Baso # (Auto) (0-0.2) K/uL Immature Gran # (Auto) (0.01-0.20) K/uL Sodium (136-145) mmol/L Potassium (3.5-5.1) mmol/L Chloride (98-107) mmol/L Carbon Dioxide (21-32) mmol/L Anion Gap (3-11) BUN (6-23) mg/dl Creatinine (0.6-1.2) mg/dl Est Cr Clr Drug Dosing ml/min Est GFR ( Amer) ml/min Est GFR (Non-Af Amer) ml/min BUN/Creatinine Ratio (10-20) Glucose (70-99(Fasting)) mg/dl Lactate 0.7 (0.4-2.0) mmol/L Calcium (8.6-10.3) mg/dl Total Bilirubin (0.2-1.0) mg/dl AST (13-39) U/L ALT (7-52) U/L Alkaline Phosphatase (34-104) U/L Total Protein (6.0-8.3) gm/dl Albumin (3.4-5.0) gm/dl Globulin (2.5-4.0) gm/dl Albumin/Globulin Ratio (0.9-2) Procalcitonin < 0.05 (0-0.5) ng/ml TSH 1.544 (0.300-4.500) uIu/ml Urine Color Urine Appearance (Clear) Urine pH (4.5-7.5) Ur Specific [place] (1.000-1.030) Urine Protein (Negative) Urine Glucose (UA) (Negative) Urine Ketones (Negative) Urine Blood (Negative) Urine Nitrite (Negative) Urine Bilirubin (Negative) Urine Urobilinogen (Negative) Ur Leukocyte Esterase (Negative) Urine WBC (Auto) (0-5) /hpf Urine RBC (Auto) (0-4) /hpf U Hyaline Cast (Auto) (0-5) /lpf U Epithel Cells (Auto) (0-5) /lpf Urine Bacteria (Auto) (Negative) Administered Medications Enoxaparin Sodium (Enoxaparin Inj 40 Mg/0.4 Ml Syr) 40 mg SQ QAM [facility] Stop: 11/28/22 09:32 Last Admin: 10/29/22 12:34 Dose: 40 mg Documented By: ANDREIA Ceftriaxone Sodium 1,000 mg/ (Dextrose) 60 mls @ 100 mls/hr IV Q24H [facility]; Protocol Stop: 11/08/22 09:44 Last Infusion: 10/29/22 13:25 Dose: 0 mls/hr Documented By: Admin: 10/29/22 12:34 Dose: 100 mls/hr Documented By: ANDREIA Melatonin (Melatonin 3 Mg Tab) 3 mg PO HS [facility] Stop: 11/28/22 20:59 Last Admin: 10/29/22 20:34 Dose: 3 mg Documented By: MARLEY Thiamine HCl (Thiamine Hcl 100 Mg Tab) 100 mg PO QAM [facility] Stop: 11/28/22 09:32 Last Admin: 10/29/22 12:34 Dose: 100 mg Documented By: ANDREIA Discontinued Medications Cefepime HCl (Cefepime 2,000 Mg/20 Ml Vial) Confirm Administered Dose 2,000 mg .ROUTE .STK-MED ONE Stop: 10/29/22 05:41 Last Admin: 10/29/22 05:41 Dose: 2,000 mg Documented By: SOHAM Sodium Chloride (Nss) 500 mls @ 999 mls/hr IV .Q31M ONE Stop: 10/29/22 05:31 Last Infusion: 10/29/22 05:46 Dose: 0 mls/hr Documented By: Admin: 10/29/22 05:12 Dose: 999 mls/hr Documented By: SOHAM Cefepime HCl 2,000 mg/ Syringe 20 mls @ 5 mls/min IV NOW [facility]; Protocol Stop: 10/29/22 05:04 Last Admin: 10/29/22 05:42 Dose: Not Given Documented By: SOHAM Sodium Chloride (Nss 1000ml) 1,000 mls @ 80 mls/hr IV .[id number] KIRSTY Stop: 10/29/22 22:02 Last Infusion: 10/30/22 00:34 Dose: 0 mls/hr Documented By: Admin: 10/29/22 11:26 Dose: 80 mls/hr Documented By: ANDREIA Sodium Chloride (Nss 1000ml) 1,000 mls @ 999 mls/hr IV .[id number] ONE Stop: 10/29/22 11:10 Last Infusion: 10/29/22 11:27 Dose: 0 mls/hr Documented By: Admin: 10/29/22 10:20 Dose: 999 mls/hr Documented By: ANDREIA Ioversol (Optiray 320 100ml) 94 ml IV ONCE ONE Stop: 10/29/22 11:53 Last Admin: 10/29/22 11:52 Dose: 94 ml Documented By: ADRY Discharge Plan Visit Data Chief Complaint: Altered Mental Status ED Provider: Flavia Rey Discharge Problem: Acute UTI, Encephalopathy Patient Disposition: Admitted As Inpatient Discharge Instructions Interventions: ED Discharge Assessment Last Done: 10/29/22 09:15
[2022-10-29 04:39] LABS: Albumin Globulin Ratio 1.3 (0.9-2); Albumin Level 3.5 gm/dl (3.4-5.0); BUN Creatinine Ratio 37.2 (10-20); Bilirubin,Total 0.4 mg/dl (0.2-1.0); Calcium 9.8 mg/dl (8.6-10.3); Creatinine Clr Calc Pharmacy 49.2 ml/min; Est GFR (African American) 84.4 ml/min; Est GFR (Non-African American) 72.8 ml/min; Globulin 2.7 gm/dl (2.5-4.0); Potassium 4.3 mmol/L (3.5-5.1); Total Protein 6.2 gm/dl (6.0-8.3)
[2022-10-29] MEDS ORDERED: CEFEPIME 2,000 MG in SYRINGE 0 ML IV STA (05:01)
[2022-10-29] MEDS ORDERED: SODIUM CHLORIDE 0.9% 500 ML IV ONE (05:01)
[2022-10-29] MEDS ORDERED: CEFEPIME 2,000 MG/20 ML VIAL ONE (05:40)
--- NOTE | 2022-10-29 06:13 | History & Physical Report ---
Date of Service October 29, 2022 Assessment & Plan (1) Encephalopathy: Plan: 76yo female with recent hospitalization for progressive weakness and ambulatory dysfunction found to have UTI secondary to alpha streptococcus s/p incomplete treatment presents with worsening confusion, decreased PO intake. Patient is not oriented and is not following commands at present. Appears to have metabolic encephalopathy, likely secondary to UTI. Patient had an extensive workup during her last hospitalization for AMS and abrupt changes in mood and personality. Workup largely negative with exception of HLA-B27+ and UTI. Do not think that patient has underlying dementia. Daughter reports that patient was fairly independent up until several weeks ago. Patient lives with her and was able to prepare meals and take care of the home. As daughter describes, patient's activity was limited more by progressive pain and fatigue rather than cognitive status. Per review of the last several PCP notes, there is no mention of cognitive decline or dementia. Mini cognitive testing performed 07/18/22 with score of 4/5 which does not support a diagnosis of dementia. -Admit to medical -Follow urine culture -Check B12, Folate, Ammonia level -Check Mg and PO4 -Ceftriaxone 1gm IV daily for suspected UTI -Tylenol as needed for pain -Zofran as needed for nausea -Continue Melatonin qHS for insomnia -Frequent orientation and avoidance of potential delirium inducing agents per Beers list -Continue Thiamine daily (2) Diarrhea: Plan: Daughter reports persistent watery diarrhea, seemingly long-standing/chronic. Recent antibiotic use -Check c.diff and stool PCR (3) Polymyalgia: Plan: Patient with polymyalgia rheumatica. Normal ESR during last hospitalization. -Check ESR/CRP -No steroids at this time (4) COPD (chronic obstructive pulmonary disease): Plan: Chronic. Stable. No cough, SOB or wheeze. Adequate oxygenation on room air -Ipratropium/Albuterol PRN (5) Benign hypertension: Plan: Blood pressure mildly elevated at present. Patient was recently taken of HCTZ -Continue to monitor BP. If it remains elevated would consider initiating Amlodipine for BP control F/E/N - LR at 80mL/hr x 1L, electrolytes WNL, Regular diet as tolerated Ppx - Lovenox Code - Full Dispo - Observation to medical History of Present Illness Chief Complaint: confusion Primary Care Provider: MD Baljit Alvarengaaraceli Lieberman is a 76yo female with history of HTN, HLP, COPD and PMR presenting from [facility] with confusion. Patient was recently admitted to [facility] from 10/20/22 - 10/27/22 after presenting with generalized weakness and difficulty with ambulation as well as worsening myalgias and arthralgias. Patient's symptoms initially thought to be secondary to Polymyalgia Rheumatica. During that hospital stay she had negative testing for Covid/Influenza/RSV as well as normal CT head and MRI with no acute findings. She had testing for Lyme disease and Anaplasmosis as well which were negative. She had a normal ESR, Random Cortisol Level, Rheumatoid Factor and SANDRA. She did have a POSITIVE test for HLA-B27. Of note, patient's daughter recently diagnosed with ankylosing spondylitis. She was found to have a urine culture POSITIVE for alpha streptococcus and was started on Augmentin which was transitioned to Keflex due to mild increase in LFTs. Patient had watery diarrhea and was treated with cholestyramine and fiber. She was seen by OB on 10/26/22 and had her pessary removed, cleaned and reinserted. Patient was discharged to [facility] on 10/27/22. Daughter reports that since discharge she has continued to decline. Daughter reports that patient has not been getting her antibiotic or medications as prescribed. Today she developed worsening confusion, decreased communication and decreased oral intake. Patient offers no complaints at present. Daughter is at bedside and assists with history. No report of fever, chills, chest pain, cough or shortness of breath. No report of nausea or vomiting. Patient continues to have watery diarrhea, decreased oral intake. In the ER she is afebrile, mildly hypertensive, tachycardic ER Course: Cefepime NSS Allergies Allergy/AdvReac Type Severity Reaction Status Date / Time latex Allergy Intermediate RASH ON Verified 10/29/22 03:07 ARMS WITH GLOVES nickel Allergy Intermediate RASH Verified 10/29/22 03:07 Home Medications Medication Instructions Recorded Confirmed Type acetaminophen 500 mg tablet 1,000 mg PO Q8 PRN Pain 12/25/18 10/29/22 History ferrous sulfate 325 mg (65 mg 325 mg PO DAILY #90 tabs 07/16/21 10/29/22 Rx iron) tablet ipratropium 20 mcg-albuterol 100 1 puff inhalation BID #4 grams 07/18/22 10/29/22 Rx mcg/actuation mist for inhalation (Combivent Respimat) ascorbic acid (vitamin C) 500 mg 500 mg PO DAILY 10/19/22 10/29/22 History tablet (Vitamin C) naproxen sodium 220 mg tablet 220 mg PO Q8H PRN Pain 10/19/22 10/29/22 History (Aleve) melatonin 3 mg tablet 3 mg PO HS #30 tabs 10/27/22 10/29/22 Rx psyllium husk 0.4 gram capsule 0.4 g PO DAILY #30 caps 10/27/22 10/29/22 Rx (Daily Fiber) thiamine HCl (vitamin B1) 100 mg 100 mg PO QAM #30 tabs 10/27/22 10/29/22 Rx tablet Past Med/Surg History Medical History Asthma Benign hypertension Bladder spasms COPD (chronic obstructive pulmonary disease) Hyperlipidemia Osteoporosis Surgical History History of knee replacement Right knee History of oophorectomy LSO History of tonsillectomy S/P tubal ligation Family History Father Stroke Denies family history of Ovarian cancer Prostate cancer Myocardial infarction Breast cancer Colorectal cancer Uterine cancer Social History Smoking Status: Current some day smoker Age Started Using Tobacco: 18; Age Quit Using Tobacco: 58; packs per day: 1; Second Hand Exposure: No; Do You Dip or Chew Tobacco: No; Hx Alcohol Use: Yes Alcohol type: wine Alcohol Intake Frequency: Monthly or Le ss Hx Substance Use: No Preferred Language: [place] Citizen Communication Ability: Impaired Hearing Ability: Hard of Hearing Systems Analysis Manager Required: No Beliefs That Will Affect Care: None marital status: Current Living Situation: Spouse current occupational status: retired How many Children do You have: 2 Feels Safe at Home: Declines to Answer and Hesitant to Answer Childhood Exposure to Second-Hand Smoke: No Diet: regular caffeine: No Dental Care, Regularly: No Physical Activity Frequency: Does not Exercise Seatbelt Use: always Sunscreen Use: Yes Assistive Devices: Cane and Walker Review of Systems Review of Systems: All systems reviewed & are unremarkable except as noted in HPI & below Physical Exam Physical Exam: General: patient resting comfortably, NAD, non-toxic in appearance, not oriented. Is reluctant to answer questions or participate with exam. Appears angry. Skin: warm, dry, intact, no rashes or lesions HEENT: NC/AT, PERRL, EOMI, anicteric sclera, conjunctiva without injection, external ear normal to inspection and nontender, nares patent, moist mucus membranes, dentition intact, no oropharyngeal lesions, neck supple, trachea m idline, no LAD, no thyromegaly, no JVD Heart: +S1/S2, regular, tachycardic, no m/r/g Lungs: equal air entry bilaterally, no rales/rhonchi/wheezes Abd: +BS, soft, ND, mild suprapubic tenderness to palpation, no masses/organomegaly/ascites Ext: warm, 2+ pulses in UE/LE bilaterally, no clubbing/cyanosis or edema Neuro: nonfocal,speech slightly delayed but clear and appropriate, moving all extremities with equal strength Results & Data Results & Data Vital Signs (Past 12 Hours) Vital Signs Temp Pulse Resp BP Pulse Ox O2 Del Method 10/29/22 05:00 107 H 17 151/100 H 95 10/29/22 04:50 99 H 14 95 10/29/22 04:40 108 H 15 96 10/29/22 04:31 113 H 26 H 95 10/29/22 04:30 102 H 15 96 10/29/22 04:20 96 H 17 95 10/29/22 04:10 102 H 19 148/92 H 95 10/29/22 04:09 97 H 16 95 10/29/22 04:00 98 H 19 96 10/29/22 03:50 103 H 15 96 10/29/22 03:40 97 H 17 96 10/29/22 03:30 96 H 16 96 10/29/22 03:20 99 H 17 95 10/29/22 03:10 93 H 22 96 10/29/22 03:00 100 H 16 127/99 96 10/29/22 03:38 104 H 16 96 Room Air 10/29/22 03:02 Room Air 10/29/22 03:01 102 H 10/29/22 02:48 36.6 C 96 H 16 127/99 95 Room Air Laboratory Results Laboratory Results WBC 7.29 K/ul (4.8-10.8) 10/29/22 03:55 RBC 3.69 M/uL (4.20-5.40) L 10/29/22 03:55 Hgb 11.6 g/dl (12.0-16.0) L 10/29/22 03:55 Hct 33.8 % (37.0-47.0) L 10/29/22 03:55 MCV 91.6 fL (80.0-100.0) 10/29/22 03:55 MCH 31.4 pg (25.0-34.0) 10/29/22 03:55 MCHC 34.3 g/dL (32.0-36.0) 10/29/22 03:55 RDW Std Deviation 49.3 fL (36.4-46.3) H 10/29/22 03:55 RDW Coeff of Juani 14.6 % (11.5-14.5) H 10/29/22 03:55 Plt Count 314 K/uL (130-400) 10/29/22 03:55 MPV 9.2 fL (9.4-12.4) L 10/29/22 03:55 Immature Gran % (Auto) 0.3 % 10/29/22 03:55 Neut % (Auto) 75.5 % 10/29/22 03:55 Lymph % (Auto) 13.9 % 10/29/22 03:55 Barnes % (Auto) 8.4 % 10/29/22 03:55 Eos % (Auto) 1.4 % 10/29/22 03:55 Baso % (Auto) 0.5 % 10/29/22 03:55 Neut # (Auto) 5.51 K/uL (1.40-6.50) 10/29/22 03:55 Lymph # (Auto) 1.01 K/uL (1.2-3.4) L 10/29/22 03:55 Barnes # (Auto) 0.61 K/uL (0.11-0.59) H 10/29/22 03:55 Eos # (Auto) 0.10 K/uL (0-0.50) 10/29/22 03:55 Baso # (Auto) 0.04 K/uL (0-0.2) 10/29/22 03:55 Immature Gran # (Auto) 0.02 K/uL (0.01-0.20) 10/29/22 03:55 Sodium 139 mmol/L (136-145) 10/29/22 03:55 Potassium 4.3 mmol/L (3.5-5.1) 10/29/22 03:55 Chloride 109 mmol/L (98-107) H 10/29/22 03:55 Carbon Dioxide 21 mmol/L (21-32) 10/29/22 03:55 Anion Gap 9 (3-11) 10/29/22 03:55 BUN 29 mg/dl (6-23) H 10/29/22 03:55 Creatinine 0.78 mg/dl (0.6-1.2) 10/29/22 03:55 Est Cr Clr Drug Dosing 49.2 ml/min 10/29/22 03:55 Est GFR ( Amer) 84.4 ml/min 10/29/22 03:55 Est GFR (Non-Af Amer) 72.8 ml/min 10/29/22 03:55 BUN/Creatinine Ratio 37.2 (10-20) H 10/29/22 03:55 Glucose 85 mg/dl (70-99(Fasting)) 10/29/22 03:55 Lactate 0.7 mmol/L (0.4-2.0) 10/29/22 05:24 Calcium 9.8 mg/dl (8.6-10.3) 10/29/22 03:55 Total Bilirubin 0.4 mg/dl (0.2-1.0) 10/29/22 03:55 AST 47 U/L (13-39) H 10/29/22 03:55 ALT 89 U/L (7-52) H 10/29/22 03:55 Alkaline Phosphatase 324 U/L (34-104) H 10/29/22 03:55 Total Protein 6.2 gm/dl (6.0-8.3) 10/29/22 03:55 Albumin 3.5 gm/dl (3.4-5.0) 10/29/22 03:55 Globulin 2.7 gm/dl (2.5-4.0) 10/29/22 03:55 Albumin/Globulin Ratio 1.3 (0.9-2) 10/29/22 03:55 Procalcitonin < 0.05 ng/ml (0-0.5) 10/29/22 03:55 TSH 1.544 uIu/ml (0.300-4.500) 10/29/22 03:55 Urine Color Yellow 10/29/22 03:53 Urine Appearance Cloudy (Clear) A 10/29/22 03:53 Urine pH 5.0 (4.5-7.5) 10/29/22 03:53 Ur Specific Hooper 1.014 (1.000-1.030) 10/29/22 03:53 Urine Protein 1+ (Negative) H 10/29/22 03:53 Urine Glucose (UA) Negative (Negative) 10/29/22 03:53 Urine Ketones Trace (Negative) H 10/29/22 03:53 Urine Blood 3+ (Negative) H 10/29/22 03:53 Urine Nitrite Negative (Negative) 10/29/22 03:53 Urine Bilirubin Negative (Negative) 10/29/22 03:53 Urine Urobilinogen Negative (Negative) 10/29/22 03:53 Ur Leukocyte Esterase 3+ (Negative) H 10/29/22 03:53 Urine WBC (Auto) >30 /hpf (0-5) H 10/29/22 03:53 Urine RBC (Auto) 10-30 /hpf (0-4) H 10/29/22 03:53 U Hyaline Cast (Auto) 1-5 /lpf (0-5) 10/29/22 03:53 U Epithel Cells (Auto) 5-10 /lpf (0-5) H 10/29/22 03:53 Urine Bacteria (Auto) 1+ (Negative) H 10/29/22 03:53 PG Care Time/CCT Total # of Minutes Spent Total Time Spent with Patient: Total time spent is greater than 50% in coordination of care (as documented) at patient's floor/unit and/or counseling patient: Coding Level of Care Code 26526 INT INP/OBS CARE 2/55MIN Diagnoses Encephalopathy G93.40 Diarrhea R19.7 Polymyalgia M35.3 COPD (chronic obstructive pulmonary disease) J43.9 COPD type: emphysema Emphysema type: unspecified Benign hypertension I10 (4) COPD (chronic obstructive pulmonary disease) COPD type: emphysema Emphysema type: unspecified Qualified Code(s): J43.9 - Emphysema, unspecified
--- NOTE | 2022-10-29 07:41 | XRay Report ---
XR chest 1V portable HISTORY: weakness COMPARISON: Chest 10/19/2022. FINDINGS: No pneumothorax. No pleural effusions. Left basilar linear densities favor subsegmental ate lectasis are scarring. Otherwise, the lungs are clear. The cardiac silhouette is top normal in size. Scoliosis again noted. Degenerative changes within the shoulders. IMPRESSION: No acute process. ACT 112: Negative or not required by law. Electronically signed by: Reji Rooney M.D. 10/29/2022 7:40 AM
--- NOTE | 2022-10-29 08:35 | Communication Note ---
Date of Service: October 29, 2022 Please see H+P for full assessment and plan except as otherwise stated: Patient is having visual hallucinations, of seeing smoke and fires, seeing "ugly people", relatively inconsolable and does not meaningfully follow commands due to perseveration about hallucinations Endorses abdominal pain, but reports "pain everywhere" On discussion with daughter today, she recalls that her mom was mentioning not "seeing things right" for about 4-6 weeks on further recollection (seeing wisps and smoke but then the complaint passes or the daughter wouldn't hear about it again), not quite as vivid or as intrusive hallucinations and not to this degree of severity. Daughter reports that Barby told her once or twice about seeing things on the television that seemed odd. 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 Barby also decided she did not want to drive anymore, and daughter wonders if it is due to ongoing or worsening visual impairment/hallucinations that perhaps Barby or her were hiding from their daughter when she didn't live with them. She notes that patient's was not very supportive of Barby not wanting to drive anymore, and has been to some extent dismissive of the th ings the patient has been complaining about. Barby since stopping driving in the last two months has had a significant decrease in other interaction/mental stimulus as they [place] in a [place] se[place] area and Barby is dependent on her to leave the house. On exam mildly tachycardic, wince with lower abdominal palpation, unable to participate meaningfully or follow commands, no slurred speech, no obvious motor deficit Workup thus far: TSH normal Cortisol normal Lyme and Anaplasma negative Respiratory Biofire negative, Stool Biofire/C. diff testing pending CXR x2 negative Head CT and MRI Brain without acute findings but with evidence of moderate to severe small vessel ischemic disease B12 and Folate normal Immunoglobulin with decreased free light chain but nutritional markers are low consistent with decline at home of nutrition, monoclonal proteins negative LFTs noted to be elevated, AST/ALT improved from recent admission but Alk Phos further elevated, ordered CTAP with IV contrast, showed gallstones and severe bladder wall thickening/fat stranding suggesting cystitis Recent positive UCx, alpha strep (not Enterococcus), was on Abx from 10/22- 10/27, about 6 days of Abx which was likely sufficient. Continue Rocephin, repeat UCx pending, UA not clean ESR/CRP elevated, suspicious for possible infection, Abx as above, not impossible that she could have PMR as discussed in previous notes however would be odd for that alone to cause hallucinations Consider Neurology evaluation if symptoms ongoing, not improved, to see if they have any further insight into her presentation. Overall I am suspicious of several things: First, that it sounds like there is at least an element of her symptoms that are progressive, or at least not new in the last two weeks. I question if the patient has had a progressive dementia that has manifested as less intrusive findings over the last few months, that now are getting worse and worse, and more debilitating. With that being said, her CRP and ESR are elevated, with findings on UA and CTAP of cystitis which we will treat for, and see if much of her symptoms are due to an infectious encephalopathy. If her symptoms do not improve with IV hydration and Abx, I discussed trial of medication such as low dose Zyprexa as this may help alleviate her
[2022-10-29] MEDS ORDERED: SODIUM CHLORIDE 0.9% 1000ML 1,000 ML IV SCH (09:33)
[2022-10-29] MEDS ORDERED: POLYETHYLENE (MIRALAX) 17 GM PACK PO PRN (09:33)
[2022-10-29] MEDS ORDERED: ACETAMINOPHEN 500 MG TAB PO PRN (09:33)
[2022-10-29] MEDS ORDERED: ONDANSETRON INJ 2 MG/ML 2 ML VIAL IV PRN (09:33)
[2022-10-29] MEDS ORDERED: SODIUM CHLORIDE 0.9% 1000ML 1,000 ML IV ONE (10:10)
[2022-10-29 10:32] LABS: C Reactive Protein 1.16 mg/dl (0-0.5); Magnesium 1.5 mg/dl (1.7-2.4); Phosphorus 3.3 mg/dl (2.5-4.9)
--- NOTE | 2022-10-29 11:37 | Electrocardiogram Report ---
Test Reason : Blood Pressure : / mmHG Vent. Rate : 099 BPM Atrial Rate : 099 BPM P-R Int : 166 ms QRS Dur : 078 ms QT Int : 372 ms P-R-T Axes : 059 003 068 degrees QTc Int : 477 ms Poor data quality, interpretation may be adversely affected Normal sinus rhythm Septal infarct , age undetermined Abnormal ECG When compared with ECG of 20-OCT-2022 00:27, Septal infarct is now Present Non-specific change in ST segment in Lateral leads Nonspecific T wave abnormality no longer evident in Inferior leads Confirmed by Mathtew Page ([id number]) on 10/29/2022 11:37:45 AM Referred By: [facility] Confirmed By:Matthew Page
[2022-10-29] MEDS ORDERED: OPTIRAY 320 100ml IV ONE (11:52)
[2022-10-29] MEDS: ENOXAPARIN INJ 40 MG/0.4 ML SYR SQ SCH (12:34)
[2022-10-29] MEDS: THIAMINE HCL 100 MG TAB PO SCH (12:34)
[2022-10-29] MEDS: DEXTROSE 5% IV SCH (12:34)
[2022-10-29] MEDS: CEFTRIAXONE SODIUM IV SCH (12:34)
[2022-10-29 13:47] LABS: Adenovirus PCR Not Detected (NotDetected); Bordetella parapertussis PCR Not Detected (NotDetected); Bordetella pertussis PCR Not Detected (NotDetected); Chlamydia pneumoniae PCR Not Detected (NotDetected); Coronavirus 229E PCR Not Detected (NotDetected); Coronavirus CoV-2 (COVID19)PCR Not Detected (NotDetected); Coronavirus HKU1 PCR Not Detected (NotDetected); Coronavirus NL63 PCR Not Detected (NotDetected); Coronavirus OC43PCR Not Detected (NotDetected); Human Metapneumovirus PCR Not Detected (NotDetected); Influenza A PCR Not Detected (NotDetected); Influenza B PCR Not Detected (NotDetected); Mycoplasma pneumoniae PCR Not Detected (NotDetected); Parainfluenza Virus 1 PCR Not Detected (NotDetected); Parainfluenza Virus 2 PCR Not Detected (NotDetected); Parainfluenza Virus 3 PCR Not Detected (NotDetected); Parainfluenza Virus 4 PCR Not Detected (NotDetected); Respiratory Syncytial VirusPCR Not Detected (NotDetected); Rhinovirus/Enterovirus PCR Not Detected (NotDetected)
[2022-10-29 15:01] LABS: Adenovirus F 40/41 PCR Not Detected (NotDetected); Astrovirus PCR Not Detected (NotDetected); Campylobacter PCR Not Detected (NotDetected); Cryptosporidium PCR Not Detected (NotDetected); Cyclospora cayetanensis PCR Not Detected (NotDetected); Entamoeba histolytica PCR Not Detected (NotDetected); Enteroaggregative E.coli(EAEC) Not Detected (NotDetected); Enteropathogenic E.coli (EPEC) Not Detected (NotDetected); Enterotoxigenic E.coli (ETEC) Not Detected (NotDetected); Giardia lamblia PCR Not Detected (NotDetected); Norovirus GI/GII PCR Not Detected (NotDetected); Plesiomonas shigelloides PCR Not Detected (NotDetected); Rotavirus A PCR Not Detected (NotDetected); Salmonella PCR Not Detected (NotDetected); Sapovirus PCR Not Detected (NotDetected); Shiga-like Toxin E.coli (STEC) Not Detected (NotDetected); Shigella/Enteroinvasive E.coli Not Detected (NotDetected); Vibrio cholerae PCR Not Detected (NotDetected); Vibrio species PCR Not Detected (NotDetected); Yersinia enterocolitica PCR Not Detected (NotDetected)
[2022-10-29] MEDS ORDERED: CEFEPIME 2,000 MG in SYRINGE 0 ML IV SCH (17:15)
--- NOTE | 2022-10-29 17:30 | CT Scan Report ---
ABDOMEN AND PELVIS CT WITH IV CONTRAST CT DOSE: 1038.32 mGy.cm HISTORY: elevated LFTs, diarrhea TECHNIQUE: Multiaxial CT images of the abdomen and pelvis were performed following the use of intrave nous contrast. A dose lowering technique was utilized adhering to the principles of ALARA. COMPARISON STUDY: None. FINDINGS: The lung bases are clear. No pneumoperitoneum. No pneumatosis. Severe osteoarthritis within the bilateral hips. Dextroscoliosis and advanced degenerative within the lumbar spine. No acute frac tures. Severe coronary artery calcifications are noted. Cholelithiasis. No gallbladder wall thickenin g. The main portal vein is patent. The liver, pancreas, spleen, and adrenal glands are unremarkable. Bilateral cortical renal scarring/thinning is noted. Otherwise, the kidneys enhance normally. No hydr onephrosis. Calcified plaque within the normal caliber abdominal aorta. No retroperitoneal or pelvic lymphadenopathy. A pessary device is noted. The uterus is unremarkable. There is a 1.8 cm right ovari an cyst. There is severe bladder wall thickening with adjacent fat stranding. This is consistent with a cystitis. There are multiple small bladder diverticula noted. Colonic diverticulosis. No evidence for acute diverticulitis. Fuex-ci-ieeijorn fecal retention. No bowel wall thickening or obstruction. Normal appendix. IMPRESSION: 1. Severe bladder wall thickening with adjacent fat stranding consistent with a cystitis. 2. No bowel wall thickening or obstruction. 3. Normal appendix. 4. Colonic diverticulosis. No evidence for acute diverticulitis. 5. Cholelithiasis. 6. Additional findings as described above. ACT 112: Negative or not required by law. Electronically signed by: Reji Rooney M.D. 10/29/2022 5:28 PM
--- NOTE | 2022-10-29 18:29 | Hospitalist Progress Note ---
Date of Service October 29, 2022 Assessment & Plan (1) Encephalopathy: Plan: Patient is having visual hallucinations, of seeing smoke and fires, seeing "ugly people", relatively inconsolable and does not meaningfully follow commands due to perseveration about hallucinations On discussion with daughter today, she recalls that her mom was mentioning not "seeing things right" for about 4-6 weeks on further recollection (seeing wisps and smoke but then the complaint passes or the daughter wouldn't hear about it again), not quite as vivid or as intrusive hallucinations and not to this degree of severity. Daughter reports that Barby told her once or twice about seeing things on the television that seemed odd. 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 Barby also decided she did not want to drive anymore, and daughter wonders if it is due to ongoing or worsening visual impairment/hallucinations that perhaps Barby or her were hiding from their daughter when she didn't live with them. She notes that patient's was not very supportive of Barby not wanting to drive anymore, and has been to some extent dismissive of the things the patient has been complaining about. Barby since stopping driving in the last two months has had a significant decrease in other interaction/mental stimulus as they live in a relatively secluded area and Barby is dependent on her to leave the house. Workup thus far: TSH normal Cortisol normal Lyme and Anaplasma negative Respiratory Biofire negative, Stool Biofire/C. diff testing pending CXR x2 negative Head CT and MRI Brain without acute findings but with evidence of moderate to severe small vessel ischemic disease B12 and Folate normal Immunoglobulin with decreased free light chain but nutritional markers are low consistent with decline at home of nutrition, monoclonal proteins negative Urinary work up below Overall I am suspicious of several possible things: First, that it sounds like there is at least an element of her symptoms that are progressive, or at least not new in the last 1-2 weeks. I question if the patient has had a progressive dementia that has manifested as less intrusive findings over the last few months, that now are getting worse and worse, and more debilitating. With that being said, her CRP and ESR are elevated, with findings on UA and CTAP of cystitis which we will treat for, and see if much or any of her symptoms are due to/worsened by an infectious encephalopathy. If her symptoms do not improve with IV hydration and Abx, I discussed trial of medication such as low dose Zyprexa as this may help alleviate her distress due to her hallucinations. Daughter and son are amenable to this trial tomorrow evening if things are not improving. (2) Dementia: Plan: see above (3) Acute UTI: Plan: Endorses abdominal pain, but reports "pain everywhere" ESR/CRP elevated, suspicious for possible infection Ordered CTAP with IV contrast, showed gallstones and severe bladder wall thickening/fat stranding suggesting cystitis Recent positive UCx, alpha strep (not Enterococcus), was on Abx from 10/22-10/27, about 6 days of Abx. Received cefepime in ER; continue Rocephin, await urine culture (4) Polymyalgia: Plan: Not impossible that she could have PMR as discussed in previous physicians' notes, however, PMR not known to cause hallucinations No headache, pain or nodularity to palpation of head/temporal artery areas to suggest concurrent GCA Admission and Anticipated Discharge Date Admission Date: October 29, 2022 Subjective See H+P from today, as well as asaessment and plan. Physical Exam Constitutional: WD/WN, vitals as above Respiratory: normal respiratory effort, lungs clear to auscultation Cardiovascular: RRR, no murmur, no edema Gastrointestinal (Abdomen): abdomen soft, mildly tender in lower quadrants, no rebound or guarding Skin: no rashes, warm and dry No tenderness to palpation over head/temporal artery areas Psychiatric: alert, not oriented, no slurred speech, no focal neurologic motor deficit Results & Data Results & Data Vital Signs (Past 12 Hours) Vital Signs Temp Pulse Pulse Resp BP BP Pulse Ox 10/29/22 16:16 36.4 C L 108 H 16 155/93 H 96 10/29/22 13:26 10/29/22 09:34 36.8 C 109 H 18 157/103 H 95 10/29/22 09:15 10/29/22 08:30 108 H 16 95 10/29/22 08:30 149/100 H 10/29/22 08:00 102 H 16 95 10/29/22 08:00 151/98 H 10/29/22 07:30 105 H 17 95 10/29/22 07:30 151/100 H 10/29/22 07:00 102 H 17 95 10/29/22 07:00 143/103 H 10/29/22 06:30 111 H 17 94 10/29/22 06:30 157/109 H 10/29/22 07:12 103 H 10/29/22 06:23 112 H 18 154/109 H 94 O2 Del Method 10/29/22 16:16 Room Air 10/29/22 13:26 Room Air 10/29/22 09:34 Room Air 10/29/22 09:15 Room Air 10/29/22 08:30 10/29/22 08:30 10/29/22 08:00 10/29/22 08:00 10/29/22 07:30 10/29/22 07:30 10/29/22 07:00 10/29/22 07:00 10/29/22 06:30 10/29/22 06:30 10/29/22 07:12 10/29/22 06:23 PG Care Time/CCT Total # of Minutes Spent Total Time Spent with Patient: Total time spent is greater than 50% in coordination of care (as documented) at patient's floor/unit and/or counseling patient: Coding Level of Care Code None Diagnoses Encephalopathy G93.40 Dementia F03.90 Acute UTI N39.0 Polymyalgia M35.3
[2022-10-29] MEDS ORDERED: MELATONIN 3 MG TAB PO SCH (21:00)
[2022-10-30] MEDS: ALBUTEROL HFA 8 GM INHALER INH SCH ×2 (04:16→07:55)
[2022-10-30] MEDS: IPRATROPIUM BROMIDE HFA INHALER INH SCH ×2 (04:16→07:56)
[2022-10-30 06:00] LABS: Hematocrit (blood only) 29.5 % (37.0-47.0); Hemoglobin 9.9 g/dl (12.0-16.0); Mean Corpuscular Hemoglobin 30.9 pg (25.0-34.0); Mean Corpuscular Hgb Conc 33.6 g/dL (32.0-36.0); Mean Corpuscular Volume 92.2 fL (80.0-100.0); Mean Platelet Volume 9.3 fL (9.4-12.4); Platelet Count 303 K/uL (130-400); RDW Coefficient of Variation 14.6 % (11.5-14.5); RDW Standard Deviation 49.7 fL (36.4-46.3); White Blood Count 6.25 K/ul (4.8-10.8)
[2022-10-30 06:16] LABS: Albumin Level 2.9 gm/dl (3.4-5.0); BUN Creatinine Ratio 32.5 (10-20); Bilirubin Direct 0.1 mg/dl (0-0.2); Bilirubin,Total 0.3 mg/dl (0.2-1.0); Creatinine Clr Calc Pharmacy 49.8 ml/min; Est GFR (African American) 85.7 ml/min; Total Protein 5.2 gm/dl (6.0-8.3)
--- NOTE | 2022-10-30 07:39 | Hospitalist Progress Note ---
Date of Service October 30, 2022 Assessment & Plan (1) Encephalopathy: Plan: Patient is having visual hallucinations, of seeing smoke and fires, seeing "ugly people", relatively inconsolable and does not meaningfully follow commands due to perseveration about hallucinations Per family patient was having some briefer visual hallucinations in the weeks prior to her last hospitalization, and some forgetfulness, but not this bad (had told her son she did not want to drive because it looked like it was snowing) Per , when patient was hospitalized in [place] about 10 years ago she had similar decompensation and agitation but not as bad as this time Some suspicion from daughter that symptoms were developing and some things were being withheld by patient and her Since stopping driving in the last month patient has had a significant decrease in other interaction/mental stimulus as they live in a secluded area and Barby is dependent on her to leave the house Workup thus far: TSH normal Cortisol normal Lyme and Anaplasma negative Respiratory Biofire negative, Stool Biofire and C diff negative CXR x2 negative Head CT and MRI Brain without acute findings but with evidence of moderate to severe small vessel ischemic disease B12 and Folate normal Immunoglobulin with decreased free light chain but nutritional markers are low consistent with decline at home of nutrition, monoclonal proteins negative Urinary work up below Overall I am suspicious that at least an element of her symptoms are progressive, or at least not new in the last 1-2 weeks. I question if the patient has had a progressive dementia that has manifested as less intrusive findings over the last few months, that now are getting worse and worse, and more debilitating and more difficult to hide from family who now live in the home. With that being said, her CRP and ESR are elevated, with findings on UCx and CTAP of cystitis which we will treat for, and see if much or any of her symptoms are due to/worsened by an infectious encephalopathy. Given her ongoing distress and not sleeping, I discussed trial of medication such as low dose Zyprexa this evening if melatonin not effective for sleep, as this may help alleviate her distress due to her hallucinations/delirium. Daughter and son are amenable to this trial this evening. (2) Dementia: Plan: see above (3) Acute UTI: Plan: Endorses abdominal pain, but reports "pain everywhere" ESR/CRP elevated, suspicious for possible infection Ordered CTAP with IV contrast, showed gallstones and severe bladder wall thickening/fat stranding suggesting cystitis Recent positive UCx, alpha strep (not Enterococcus), was on Abx from 10/22-10/27 (about 6 days of Abx), not continued by rehab facility Received cefepime in ER for new infected-appearing UA, UCx growing probable Pseudomonas species, continue cefepime and await sensitivities (4) Polymyalgia: Plan: Not impossible that she could have PMR as discussed in previous physicians' notes, however, PMR not known to cause hallucinations No headache, pain or nodularity to palpation of head/temporal artery areas to suggest concurrent GCA (5) COPD (chronic obstructive pulmonary disease): Plan: No hypoxia, not on daily inhalers No interventions this admission (6) Iron deficiency anemia: Plan: History of, Hgb stable at ~10 Plan Ongoing evaluation and management of UTI and metabolic encephalopathy vs. hospital-delirium PT and OT, nutrition evaluations when able, anticipate need for placement on discharge, CM to assist Admission and Anticipated Discharge Date Admission Date: October 29, 2022 Subjective Overnight barely slept. Per son who stayed until 10pm Barby was still looping and talking about the same things over and over. She does not have new complaints today however does not respond meaningfully to questions. Review of Systems Review of Systems: Unobtainable due to cognitive status Physical Exam Constitutional: WD/WN, vitals as above Respiratory: normal respiratory effort, lungs clear to auscultation Cardiovascular: RRR, no murmur, no edema Gastrointestinal (Abdomen): abdomen soft, nontender, no rebound or guarding Skin: no rashes, warm and dry No tenderness to palpation over head/temporal artery areas Psychiatric: alert, not oriented, not following commands, no slurred speech, no focal neurologic motor deficit Results & Data Results & Data Vital Signs (Past 12 Hours) Vital Signs Temp Pulse Resp BP Pulse Ox O2 Del Method 10/29/22 20:38 36.6 C 109 H 18 176/88 H 95 Room Air PG Care Time/CCT Total # of Minutes Spent Total Time Spent with Patient: Total time spent is greater than 50% in coordination of care (as documented) at patient's floor/unit and/or counseling patient: Coding Level of Care Code 22970 SUB INP/OBS CARE 3/50MIN Diagnoses Encephalopathy G93.40 Dementia F03.90 Acute UTI N39.0 Polymyalgia M35.3 COPD (chronic obstructive pulmonary disease) J43.9 COPD type: emphysema Emphysema type: unspecified Iron deficiency anemia D50.9 (5) COPD (chronic obstructive pulmonary disease) COPD type: emphysema Emphysema type: unspecified Qualified Code(s): J43.9 - Emphysema, unspecified
[2022-10-30] MEDS: ENOXAPARIN INJ 40 MG/0.4 ML SYR SQ SCH (09:33)
[2022-10-30] MEDS: THIAMINE HCL 100 MG TAB PO SCH (09:37)
[2022-10-30] MEDS ORDERED: OLANZapine 10 MG/2.1 ML SDV IM ONE (09:43)
[2022-10-30] MEDS ORDERED: OLANZapine 10 MG/2.1 ML SDV IM STA (09:56)
[2022-10-30] MEDS: CEFTRIAXONE SODIUM IV SCH (09:58)
[2022-10-30] MEDS: DEXTROSE 5% IV SCH (09:58)
[2022-10-30] MEDS ORDERED: OLANZapine ZYDIS 5 MG ORALLY DIS. TAB PO ONE (12:33)
[2022-10-30] MEDS ORDERED: LORazepam 2 MG/1 ML VIAL IV STA (14:27)
[2022-10-30] MEDS ORDERED: OLANZapine ZYDIS 5 MG ORALLY DIS. TAB PO PRN (17:08)
[2022-10-30] MEDS: CEFEPIME 2,000 MG in SYRINGE 0 ML IV SCH (17:26)
[2022-10-30] MEDS: MELATONIN 3 MG TAB PO SCH (21:44)
[2022-10-30] MEDS ORDERED: HALOPERIDOL LACTATE 5 MG/ML 1 ML VIAL IM STA (23:32)
[2022-10-31] MEDS ORDERED: LORazepam 2 MG/1 ML VIAL IM STA (02:16)
--- NOTE | 2022-10-31 02:22 | Communication Note ---
Date of Service: October 31, 2022 Was notified by nursing about patient's hallucinations and agitation. Reviewed patient's med rec, which showed multiple administrations of Zyprexa 2.5 mg (IM, p.o.) and then 1 mg of Ativan. Nurse stressed that patient's daughter had insisted on Ativan. Deferred Ativan due to time of day, concern for increased mortality in the setting of delirium. Ordered Haldol instead. Was notified by patient's nurse hours later that patient remained agitated and continue to have hallucinations and that the daughter was again insisting on Ativan. Went upstairs to talk to daughter and discussed the inherent risks of lorazepam for delirium management in elderly patients. Recommended trial of spot dose of morphine/Dilaudid before attempting Ativan, which patient's daughter flatly rejected. Consequently opted for trial of lorazepam 0.5 mg IM. Resident Activity Tracking Resident Involvement: Resident Care Provided and Web Marketing Strategist Coverage Note Care Provided: Adult Hospital Medicine
[2022-10-31] MEDS: CEFEPIME 2,000 MG in SYRINGE 0 ML IV SCH ×2 (05:45→17:10)
--- NOTE | 2022-10-31 07:27 | Hospitalist Progress Note ---
Date of Service October 31, 2022 Assessment & Plan (1) Encephalopathy: Plan: Patient is having visual hallucinations, of seeing smoke and fires, seeing "ugly people", relatively inconsolable and does not meaningfully follow commands due to perseveration about hallucinations Per family patient was having some briefer visual hallucinations in the weeks prior to her last hospitalization, and some forgetfulness, but not this bad (had told her son she did not want to drive because it looked like it was snowing) Per , when patient was hospitalized in [place] about a few years ago she had similar decompensation and agitation but not as bad as this time, per dolly rider she never knew this Some suspicion from daughter that symptoms were developing and some things were being withheld by patient and her Since stopping driving in the last month patient has had a significant decrease in other interaction/mental stimulus as they live in a secluded area and Barby is dependent on her to leave the house Workup thus far: TSH normal Cortisol normal Lyme and Anaplasma negative Respiratory Biofire negative, Stool Biofire and C diff negative CXR x2 negative Head CT and MRI Brain without acute findings but with evidence of moderate to severe small vessel ischemic disease B12 and Folate normal Immunoglobulin with decreased free light chain but nutritional markers are low consistent with decline at home of nutrition, monoclonal proteins negative Urinary work up below Overall I am suspicious that at least an element of her symptoms are progressive, or at least not new in the last 1-2 weeks. I question if the patient has had a progressive dementia that has manifested as less intrusive findings over the last few months, that now are getting worse and worse, and more debilitating and more difficult to hide from family who now live in the home. With that being said, her CRP and ESR are elevated, with findings on UCx and CTAP of cystitis which we will treat for, and see if much or any of her symptoms are due to/worsened by an infectious encephalopathy. Given that she had (though brief) clarity for a few hours this morning after receiving Zyprexa and melatonin, would continue these medications and have an Ativan order in PRN severe agitation this evening. Educated daughter and son that while Ativan may be a "band aid" for her agitation, it can precipitate and worsen delirium so we have to use caution and favor antipsychotic medications. I am hopeful that her symptoms will improve, and that we can find a rehab facility willing to accept her as we find a way to help her sleep at night and be less agitated. Discussed possibility of [facility] in patient's future, as per children not only is Barby struggling in the recent past, but their father is struggling more than they realized as well. (2) Dementia: Plan: see above (3) Acute UTI: Plan: Endorsed abdominal pain two days ago, but reported "pain everywhere" ESR/CRP elevated, suspicious for possible infection CTAP with IV contrast showed gallstones and severe bladder wall thickening/fat stranding suggesting cystitis Recent positive UCx, alpha strep (not Enterococcus), was on Abx from 10/22-10/27 (about 6 days of Abx), not continued by rehab facility Received cefepime in ER for new infected-appearing UA, UCx growing Pseudomonas aeruginosa, continue cefepime (4) Polymyalgia: Plan: Not impossible that she could have PMR as discussed in previous physicians' notes, however, PMR not known to cause hallucinations No headache, pain or nodularity to palpation of head/temporal artery areas to suggest concurrent GCA Would also not be inclined to give steroids in delirious patient, but may be something to consider as we improve upon her AMS (5) COPD (chronic obstructive pulmonary disease): Plan: No hypoxia, not on daily inhalers No interventions this admission (6) Iron deficiency anemia: Plan: History of, Hgb stable at ~10 Plan Ongoing evaluation and management of UTI and metabolic encephalopathy vs. hospital-delirium PT and OT, nutrition evaluations when able, anticipate need for placement on discharge, CM to assist Admission and Anticipated Discharge Date Admission Date: October 30, 2022 Subjective Overnight was very agitated and trying to get out of bed, distressing to herself and her daughter, despite Zyprexa. Received Haldol 2.5mg at first without benefit, about 2 hours later slept soundly for 6 or so hours. This am was rather clear, disoriented about where she was but following commands. This afternoon was confused and distressed again. Review of Systems Review of Systems: All systems reviewed & are unremarkable except as noted in Subjective Physical Exam Constitutional: WD/WN, vitals as above Respiratory: normal respiratory effort, lungs clear to auscultation Cardiovascular: RRR, no murmur, no edema Gastrointestinal (Abdomen): abdomen soft, nontender, no rebound or guarding Skin: no rashes, warm and dry No tenderness to palpation over head/temporal artery areas Psychiatric: alert, not oriented, not following commands, no slurred speech, no focal neurologic motor deficit Results & Data Results & Data Vital Signs (Past 12 Hours) Vital Signs Temp Pulse Resp BP Pulse Ox O2 Del Method 10/30/22 22:00 35.7 C L 107 H 18 140/93 95 Room Air PG Care Time/CCT Total # of Minutes Spent Total Time Spent with Patient: Total time spent is greater than 50% in coordination of care (as documented) at patient's floor/unit and/or counseling patient: Coding Level of Care Code 25503 SUB INP/OBS CARE 3/50MIN Diagnoses Encephalopathy G93.40 Dementia F03.90 Acute UTI N39.0 Polymyalgia M35.3 COPD (chronic obstructive pulmonary disease) J43.9 COPD type: emphysema Emphysema type: unspecified Iron deficiency anemia D50.9 (5) COPD (chronic obstructive pulmonary disease) COPD type: emphysema Emphysema type: unspecified Qualified Code(s): J43.9 - Emphysema, unspecified
[2022-10-31] MEDS: THIAMINE HCL 100 MG TAB PO SCH (10:17)
[2022-10-31] MEDS ORDERED: LORazepam 2 MG/1 ML VIAL IV PRN (14:30)
[2022-10-31] MEDS: OLANZapine ZYDIS 5 MG ORALLY DIS. TAB PO PRN (15:26)
[2022-10-31] MEDS: MELATONIN 3 MG TAB PO SCH (21:00)
[2022-11-01] MEDS: CEFEPIME 2,000 MG in SYRINGE 0 ML IV SCH ×2 (05:04→17:28)
--- NOTE | 2022-11-01 08:05 | Hospitalist Progress Note ---
Date of Service November 01, 2022 Assessment & Plan (1) Encephalopathy: Plan: Patient is having visual hallucinations, of seeing smoke and fires, seeing "ugly people", relatively inconsolable and does not meaningfully follow commands due to perseveration about hallucinations Per family patient was having some briefer visual hallucinations in the weeks prior to her last hospitalization, and some forgetfulness, but not this bad (had told her son she did not want to drive because it looked like it was snowing) Per , when patient was hospitalized in [place] a few years ago she had similar decompensation and agitation but not as bad as this time, per daughter she never knew this Some suspicion from daughter that symptoms were developing and some things were being withheld by patient and her Since stopping driving in the last month patient has had a significant decrease in other interaction/mental stimulus as they live in a secluded area and Barby is dependent on her to leave the house Workup thus far: TSH normal Cortisol normal Lyme and Anaplasma negative Respiratory Biofire negative, Stool Biofire and C diff negative CXR x2 negative Head CT and MRI Brain 10/19/22 without acute findings but with evidence of moderate to severe small vessel ischemic disease B12 and Folate normal Immunoglobulin with decreased free light chain but nutritional markers are low consistent with decline at home of nutrition, monoclonal proteins negative Urinary work up below Overall I am suspicious that at least an element of her symptoms are progressive, or at least not new in the last 1-2 weeks. I question if the patient has had a progressive dementia that has manifested as less intrusive findings over the last few months, that now are getting worse and worse, and more debilitating and more difficult to hide from family who now live in the home. With that being said, her CRP and ESR were elevated, with findings on UCx and CTAP of cystitis which are treating for with cefepime, and we will see if much or any of her symptoms are due to/worsened by an infectious encephalopathy. Given that she had (though brief) clarity for a few hours yesterday morning after receiving Zyprexa and melatonin, suspect this is increasing delirium due to ongoing hospital/SNF confinement. Psych consulted today, presents as delirium almost like agitated catatonia, can trial low dose Ativan 0.25mg q6h prn anxiety/restlessness, with Haldol 2mg PO or IV as needed for agitation. I am hopeful that her symptoms will improve with a good night's rest, and that we can find a rehab facility willing to accept her as we find a way to help her sleep at night and be less agitated. Discussed possibility of [facility] in patient's future, as per children not only is Barby struggling in the recent past, but their father is struggling much more than they realized as well. Consider Neuro evaluation if symptoms continuing not to improve, and/or repeat brain imaging. (2) Dementia: Plan: see above (3) Acute UTI: Plan: Endorsed abdominal pain two days ago, but reported "pain everywhere" ESR/CRP elevated, suspicious for possible infection CTAP with IV contrast showed gallstones and severe bladder wall thickening/fat stranding suggesting cystitis Recent positive UCx, alpha strep (not Enterococcus), was on Abx from 10/22-10/27 (about 6 days of Abx), not continued by rehab facility Received cefepime in ER for new infected-appearing UA, UCx growing Pseudomonas aeruginosa, continue cefepime (4) Polymyalgia: Plan: Not impossible that she could have PMR as discussed in previous physicians' notes, however, PMR not known to cause hallucinations No headache, pain or nodularity to palpation of head/temporal artery areas to suggest concurrent GCA Would also not be inclined to give steroids in delirious patient, but may be something to consider as we improve upon her AMS (5) COPD (chronic obstructive pulmonary disease): Plan: No hypoxia, not on daily inhalers No interventions this admission (6) Iron deficiency anemia: Plan: History of, Hgb stable at ~10 Plan Ongoing evaluation and management of UTI and metabolic encephalopathy vs. hospital-delirium PT and OT, nutrition evaluations when able, anticipate need for placement on discharge, CM to assist Admission and Anticipated Discharge Date Admission Date: October 30, 2022 Subjective Overnight slept about 5 hours off and on. Today restless and repetitive, reports seeing things but cannot describe them. Physical Exam Constitutional: WD/WN, vitals as above Respiratory: normal respiratory effort, lungs clear to auscultation Cardiovascular: RRR, no murmur, no edema Gastrointestinal (Abdomen): abdomen soft, nontender, no rebound or guarding Skin: no rashes, warm and dry No tenderness to palpation over head/temporal artery areas Psychiatric: alert, not oriented, not following commands, no slurred speech, no focal neurologic motor deficit Results & Data Results & Data Vital Signs (Past 12 Hours) Vital Signs Pulse Resp BP Pulse Ox O2 Del Method 11/01/22 07:53 104 H 18 149/77 H 95 Room Air PG Care Time/CCT Total # of Minutes Spent Total Time Spent with Patient: Total time spent is greater than 50% in coordination of care (as documented) at patient's floor/unit and/or counseling patient: Coding Level of Care Code 07222 SUB INP/OBS CARE 2/35MIN Diagnoses Encephalopathy G93.40 Dementia F03.90 Acute UTI N39.0 Polymyalgia M35.3 COPD (chronic obstructive pulmonary disease) J43.9 COPD type: emphysema Emphysema type: unspecified Iron deficiency anemia D50.9 (5) COPD (chronic obstructive pulmonary disease) COPD type: emphysema Emphysema type: unspecified Qualified Code(s): J43.9 - Emphysema, unspecified
[2022-11-01] MEDS: OLANZapine ZYDIS 5 MG ORALLY DIS. TAB PO PRN (09:04)
[2022-11-01] MEDS: THIAMINE HCL 100 MG TAB PO SCH ×2 (09:04→09:11)
--- NOTE | 2022-11-01 14:32 | Psychiatric Consultation ---
Date of Consultation November 01, 2022 Impression / Recommendations Impression 76 yo female with AMS, likely multifactorial, unclear response to Zyprexa thus far. (1) Encephalopathy: (2) Acute UTI: Plan consider imaging if failing to resolve, unlikely stroke presentation and other causes some delirium can present with more of an agitated catatonia, she sort of repeats things over and over, so low dose Ativan trial may be warranted, suggest 0.25 mg q6 to start as can be given IV or IM for anxiety/restlessness. Should not give parenteral IV with IM Zyprexa so suggest trial of Haldol, may have previously responded to 2.5 mg dose. Would suggest 2 mg Haldol PO/IM q8 prn agitation. Psych History Identifying Data 76yo female with no known psych hx or dementia dx readmit (discharged 10/27) from [facility] with confusion. Patient was been treated for UTI and autoimmune w/u. Chief Complaint "it's morbid, I keep seeing it." repeats over and over. History of Present Illness Patient has been having AMS and not sleeping well at night, increasing delirium given ongoing confinement. Has received low doses of PO and IV Ativan and a few doses of Zyprexa 2.5 mg, no consistent response/administration. Hospitalist has educated family on delirium protocol. Friend at bedside during consultation. Patient's daughter reportedly expressed a preference for Ativan which is often contraindicated in delirium. Patient repetitively talks about seeing things but cannot describe, per friend goes on for hours. Allergies Allergy/AdvReac Type Severity Reaction Status Date / Time latex Allergy Intermediate RASH ON Verified 10/29/22 03:07 ARMS WITH GLOVES nickel Allergy Intermediate RASH Verified 10/29/22 03:07 Home Medications Medication Instructions Recorded Confirmed Type acetaminophen 500 mg tablet 1,000 mg PO Q8 PRN Pain 12/25/18 10/29/22 History ferrous sulfate 325 mg (65 mg 325 mg PO DAILY #90 tabs 07/16/21 10/29/22 Rx iron) tablet ascorbic acid (vitamin C) 500 mg 500 mg PO DAILY 10/19/22 10/29/22 History tablet (Vitamin C) naproxen sodium 220 mg tablet 220 mg PO Q8H PRN Pain 10/19/22 10/29/22 History (Aleve) melatonin 3 mg tablet 3 mg PO HS #30 tabs 10/27/22 10/29/22 Rx psyllium husk 0.4 gram capsule 0.4 g PO DAILY #30 caps 10/27/22 10/29/22 Rx (Daily Fiber) thiamine HCl (vitamin B1) 100 mg 100 mg PO QAM #30 tabs 10/27/22 10/29/22 Rx tablet Patient History Medical History Asthma Benign hypertension Bladder spasms COPD (chronic obstructive pulmonary disease) Hyperlipidemia Osteoporosis Surgical History History of knee replacement Right knee History of oophorectomy LSO History of tonsillectomy S/P tubal ligation Family History Father Stroke Denies family history of Ovarian cancer Prostate cancer Myocardial infarction Breast cancer Colorectal cancer Uterine cancer Social History Smoking Status: Former smoker Age Started Using Tobacco: 18; Age Quit Using Tobacco: 58; packs per day: 1; Second Hand Exposure: No; Do You Dip or Chew Tobacco: No; Hx Alcohol Use: Yes Alcohol type: wine Alcohol Intake Frequency: Monthly or Less Hx Substance Use: No Preferred Language: Monegasque Communication Ability: Impaired Hearing Ability: Hard of Hearing Tenter Required: No Beliefs That Will Affect Care: None marital status: Current Living Situation: Family current occupational status: retired How many Children do You have: 2 Feels Safe at Home: Yes Safety Concerns: Feels Safe At This Time Childhood Exposure to Second-Hand Smoke: No Diet: regular caffeine: No Dental Care, Regularly: No Physical Activity Frequency: Does not Exercise Seatbelt Use: always Sunscreen Use: Yes Assistive Devices: Walker Physical Exam Psychiatric: Orientation: alert; + not oriented x 3 Apperance: appropriately groomed Eye Contact: + not good eye contact Motor Behavior: + abnormal motor movements (restless) Speech: + abnormal rate/rhythm/volume of speech (stammering) Affect: + anxious affect Mood: + anxious mood Thought Process: + perseveration Thought Content: + delusional Hallucinations: + visual hallucinations; no auditory hallucinations Cognition: language grossly intact; + attention not intact Vital Signs (Past 24 Hours): Last Vital Signs Temp 34.9 C L 10/31/22 10:35 Pulse 104 H 11/01/22 07:53 Resp 18 11/01/22 07:53 BP 149/77 H 11/01/22 07:53 Pulse Ox 95 11/01/22 07:53 O2 Del Method Room Air 11/01/22 07:53 Review of Systems Unobtainable due to cognitive status Results & Data (PSY) Medications Administered Enoxaparin Sodium (Enoxaparin Inj 40 Mg/0.4 Ml Syr) 40 mg SQ QAM [facility] Stop: 11/28/22 09:32 Last Admin: 10/30/22 09:33 Dose: Not Given Documented By: JOSE CARLOS Admin: 10/29/22 12:34 Dose: 40 mg Documented By: ANDREIA Cefepime HCl 2,000 mg/ Syringe 20 mls @ 5 mls/min IV Q12H [facility]; Protocol Stop: 11/09/22 17:29 Last Admin: 11/01/22 05:04 Dose: 5 mls/min Documented By: Admin: 10/31/22 17:10 Dose: 5 mls/min Documented By: JOSE CARLOS Admin: 10/31/22 05:45 Dose: 5 mls/min Documented By: Admin: 10/30/22 17:26 Dose: 5 mls/min Documented By: JOSE CARLOS Melatonin (Melatonin 3 Mg Tab) 6 mg PO [facility] Stop: 11/29/22 20:59 Last Admin: 10/31/22 21:00 Dose: Not Given Documented By: Admin: 10/30/22 21:44 Dose: 6 mg Documented By: PELON Thiamine HCl (Thiamine Hcl 100 Mg Tab) [facility] Stop: 11/28/22 09:32 Last Admin: 11/01/22 09:11 Dose: Not Given Documented By: Admin: 10/31/22 10:17 Dose: 100 mg Documented By: JOSE CARLOS Admin: 10/30/22 09:37 Dose: Not Given Documented By: JOS ECARLOS Admin: 10/29/22 12:34 Dose: 100 mg Documented By: ANDREIA Coding Level of Care Code 82695 [facility] Intl Hosp Care Lvl 2 Diagnoses Encephalopathy G93.40 Acute UTI N39.0
[2022-11-01] MEDS ORDERED: haloperidoL 1 MG TAB PO PRN (17:12)
[2022-11-01] MEDS ORDERED: HALOPERIDOL LACTATE 5 MG/ML 1 ML VIAL IM PRN (17:12)
[2022-11-01] MEDS: MELATONIN 3 MG TAB PO SCH (20:19)
[2022-11-01] MEDS: LORazepam 2 MG/1 ML VIAL IV PRN (22:07)
[2022-11-02] MEDS: CEFEPIME 2,000 MG in SYRINGE 0 ML IV SCH ×2 (04:59→17:10)
[2022-11-02 06:58] LABS: Basophils # (auto) 0.05 K/uL (0-0.2); Basophils % (auto) 0.7 %; Eosinophils # (auto) 0.28 K/uL (0-0.50); Eosinophils % (auto) 3.9 %; Hematocrit (blood only) 34.3 % (37.0-47.0); Hemoglobin 11.7 g/dl (12.0-16.0); Immature Granulocytes # (auto) 0.07 K/uL (0.01-0.20); Lymphocytes # (auto) 1.21 K/uL (1.2-3.4); Mean Corpuscular Hgb Conc 34.1 g/dL (32.0-36.0); Mean Corpuscular Volume 90.7 fL (80.0-100.0); Mean Platelet Volume 9.2 fL (9.4-12.4); Monocytes # (auto) 0.67 K/uL (0.11-0.59); Monocytes % (auto) 9.4 %; Neutrophils # (auto) 4.83 K/uL (1.40-6.50); Platelet Count 427 K/uL (130-400); RDW Coefficient of Variation 14.4 % (11.5-14.5); RDW Standard Deviation 48.3 fL (36.4-46.3); Red Blood Count 3.78 M/uL (4.20-5.40); White Blood Count 7.11 K/ul (4.8-10.8)
[2022-11-02 07:05] LABS: Alanine Aminotransferase 51 U/L (7-52); Albumin Globulin Ratio 1.2 (0.9-2); Albumin Level 3.6 gm/dl (3.4-5.0); Alkaline Phosphatase 292 U/L (34-104); Anion Gap 6 (3-11); Aspartate Aminotransferase 37 U/L (13-39); BUN Creatinine Ratio 41.8 (10-20); Bilirubin,Total 0.4 mg/dl (0.2-1.0); Blood Urea Nitrogen 38 mg/dl (6-23); C Reactive Protein < 0.50 mg/dl (0-0.5); Calcium 9.7 mg/dl (8.6-10.3); Carbon Dioxide 26 mmol/L (21-32); Chloride 106 mmol/L (98-107); Creatinine Clr Calc Pharmacy 42.1 ml/min; Est GFR (Non-African American) 60.4 ml/min; Globulin 2.9 gm/dl (2.5-4.0); Glucose 84 mg/dl (70-99(Fasting)); Potassium 4.5 mmol/L (3.5-5.1); Sodium 138 mmol/L (136-145); Total Protein 6.5 gm/dl (6.0-8.3)
[2022-11-02] MEDS: THIAMINE HCL 100 MG TAB PO SCH (08:08)
--- NOTE | 2022-11-02 13:12 | Hospitalist Progress Note ---
Date of Service November 02, 2022 Assessment & Plan (1) Encephalopathy: Plan: strongly suspect delirium (due to UTI, and changing environments) superimposed on what has likely been progressive dementia Workup thus far: TSH normal Cortisol normal Lyme and Anaplasma negative Respiratory Biofire negative, Stool Biofire and C diff negative CXR x2 negative Head CT and MRI Brain 10/19/22 without acute findings but with evidence of moderate to severe small vessel ischemic disease B12 and Folate normal Immunoglobulin with decreased free light chain but nutritional markers are low consistent with decline at home of nutrition, monoclonal proteins negative Urinary work up below likely will need skilled nursing placement; family aware and reviewing options. treating UTI (cefepime day 5 today, anticipate 7 for complicated cystitis) replacing thiamine while level still pending Admission and Anticipated Discharge Date Admission Date: October 30, 2022 Subjective no meaningful HPI or ROS, dtr present updated/offered empathy and support, answered all questions to the best of my ability pt repeating things, pulling at things, but does not appear in distress Review of Systems Review of Systems: Unobtainable due to cognitive status Physical Exam Physical Exam: awake, disoriented, mildly dysphoric appearing when i first enter - but after calm talking, giving her some food, turning on TV - a little less dysphoric and a little less restless. breathing unlabored no accessory muscles good effort skin no rashes no pallor or icterus neuro no focal deficits Results & Data Results & Data Vital Signs (Past 12 Hours) Vital Signs Pulse Resp BP Pulse Ox O2 Del Method 11/02/22 07:28 99 H 18 141/82 H 95 Room Air PG Care Time/CCT Total # of Minutes Spent Total Time Spent with Patient: Total time spent is greater than 50% in coordination of care (as documented) at patient's floor/unit and/or counseling patient: Coding Level of Care Code 90994 SUB INP/OBS CARE 2/35MIN Diagnoses Encephalopathy G93.40
[2022-11-02] MEDS: MELATONIN 3 MG TAB PO SCH (19:55)
[2022-11-02] MEDS: LORazepam 0.5 MG TAB PO SCH (20:02)
[2022-11-02] MEDS: ALBUT/IPRATROP 3MG/0.5MG NEB 3 ML VIAL NEB PRN (20:07)
[2022-11-03] MEDS: CEFEPIME 2,000 MG in SYRINGE 0 ML IV SCH ×2 (05:12→17:00)
[2022-11-03] MEDS: THIAMINE HCL 100 MG TAB PO SCH (08:55)
--- NOTE | 2022-11-03 17:49 | Hospitalist Progress Note ---
Date of Service November 03, 2022 Assessment & Plan (1) Encephalopathy: Plan: strongly suspect delirium (due to UTI, and changing environments) superimposed on what has likely been progressive dementia Workup thus far: TSH normal Cortisol normal Lyme and Anaplasma negative Respiratory Biofire negative, Stool Biofire and C diff negative CXR x2 negative Head CT and MRI Brain 10/19/22 without acute findings but with evidence of moderate to severe small vessel ischemic disease B12 and Folate normal Immunoglobulin with decreased free light chain but nutritional markers are low consistent with decline at home of nutrition, monoclonal proteins negative Urinary work up below likely will need nursing home placement; family aware and reviewing options. They wanted [place] but unfortunately this is apparently not an option treating UTI (cefepime day 6 today, anticipate 7 for complicated cystitis) replacing thiamine while level still pending Admission and Anticipated Discharge Date Admission Date: October 30, 2022 Subjective no meaningful HPI review of systems. Friend present at the bedsidenotes patient slept until about 4 AM, and is more cheerful and laughing today. Review of Systems Review of Systems: Unobtainable due to cognitive status Physical Exam Physical Exam: In general she is disoriented but smiling and laughing. Breathing unlabored no accessory muscle use good effort. Skin shows no rashes no pallor or icterus. Neuro without focal deficits. Results & Data Results & Data Vital Signs (Past 12 Hours) Vital Signs Temp Pulse Resp BP Pulse Ox O2 Del Method 11/03/22 16:07 85 18 120/84 94 Room Air 11/03/22 08:00 Room Air 11/03/22 07:26 97.7 F 84 18 118/74 93 Room Air PG Care Time/CCT Total # of Minutes Spent Total Time Spent with Patient: Total time spent is greater than 50% in coordination of care (as documented) at patient's floor/unit and/or counseling patient: Coding Level of Care Code 32600 SUB INP/OBS CARE 04/13MIN Diagnoses Encephalopathy G93.40
[2022-11-03] MEDS: MELATONIN 3 MG TAB PO SCH (20:02)
[2022-11-03] MEDS: LORazepam 0.5 MG TAB PO SCH (20:02)
[2022-11-04] MEDS: LORazepam 2 MG/1 ML VIAL IV PRN (02:06)
[2022-11-04] MEDS: CEFEPIME 2,000 MG in SYRINGE 0 ML IV SCH ×2 (05:45→18:28)
[2022-11-04] MEDS: THIAMINE HCL 100 MG TAB PO SCH (10:17)
--- NOTE | 2022-11-04 19:12 | Hospitalist Progress Note ---
Date of Service November 04, 2022 Assessment & Plan (1) Encephalopathy: Plan: strongly suspect delirium (due to UTI, and changing environments) superimposed on what has likely been progressive dementia Workup thus far: TSH normal Cortisol normal Lyme and Anaplasma negative Respiratory Biofire negative, Stool Biofire and C diff negative CXR x2 negative Head CT and MRI Brain 10/19/22 without acute findings but with evidence of moderate to severe small vessel ischemic disease B12 and Folate normal Immunoglobulin with decreased free light chain but nutritional markers are low consistent with decline at home of nutrition, monoclonal proteins negative Urinary work up below likely will need jail placement; family aware and reviewing options. fmaily notes [facility] will take her but waiting on bed, case management informed me that [facility] was not going to take her. treating UTI (7 days total for complicated cystitis) replacing thiamine while level still pending possible malnutrition - d/w family re encouraging eating, having food nearby, etc Admission and Anticipated Discharge Date Admission Date: October 30, 2022 Subjective no meaningful HPI or ROS obtainable, family present - d/w son earlier (and filled out outpt [facility] paperwork) and then dtr present later and wanted to discuss and came back and rediscussed with son and dtr again. Physical Exam Physical Exam: in general she is in bed in no distress, later sitting in the chair no distress. Breathing unlabored no accessory muscle use good effort. Skin shows no rashes no pallor or icterus. Neuro without focal deficits. Results & Data Results & Data Vital Signs (Past 12 Hours) Vital Signs O2 Del Method 11/04/22 07:27 Room Air PG Care Time/CCT Total # of Minutes Spent Total Time Spent with Patient: Total time spent is greater than 50% in coordination of care (as documented) at patient's floor/unit and/or counseling patient: Coding Level of Care Code 46745 SUB INP/OBS CARE 2/35MIN Diagnoses Encephalopathy G93.40
[2022-11-04] MEDS: MELATONIN 3 MG TAB PO SCH (19:45)
[2022-11-04] MEDS: LORazepam 0.5 MG TAB PO SCH (19:45)
[2022-11-05] MEDS: CEFEPIME 2,000 MG in SYRINGE 0 ML IV SCH ×2 (05:39→17:44)
[2022-11-05] MEDS: THIAMINE HCL 100 MG TAB PO SCH (08:11)
--- NOTE | 2022-11-05 19:24 | Hospitalist Progress Note ---
Date of Service November 05, 2022 Assessment & Plan (1) Encephalopathy: Plan: strongly suspect delirium (due to UTI, and changing environments) superimposed on what has likely been progressive dementia Workup thus far: TSH normal Cortisol normal Lyme and Anaplasma negative Respiratory Biofire negative, Stool Biofire and C diff negative CXR x2 negative Head CT and MRI Brain 10/19/22 without acute findings but with evidence of moderate to severe small vessel ischemic disease B12 and Folate normal Immunoglobulin with decreased free light chain but nutritional markers are low consistent with decline at home of nutrition, monoclonal proteins negative Urinary work up below likely will need senior living placement; family aware and reviewing options. fmaily notes [facility] will take her but waiting on bed, case management informed me that [facility] was not going to take her. Obviously not able to sort this out over weekend, so we will need to determine her direction for disposition starting again on Monday treating UTI (7 days total for complicated cystitis) replacing thiamine while level still pending possible malnutrition - d/w family re encouraging eating, having food nearby, etcdoing a bit better today with that Admission and Anticipated Discharge Date Admission Date: October 30, 2022 Subjective no meaningful HPI or ROS obtainable, family present. calmer, happier today Results & Data Results & Data Vital Signs (Past 12 Hours) Vital Signs Temp Pulse Resp BP Pulse Ox O2 Del Method 11/05/22 15:38 97.3 F L 99 H 16 107/70 95 Room Air 11/05/22 07:45 Room Air PG Care Time/CCT Total # of Minutes Spent Total Time Spent with Patient: Total time spent is greater than 50% in coordination of care (as documented) at patient's floor/unit and/or counseling patient: Coding Level of Care Code 74471 SUB INP/OBS CARE 125MIN Diagnoses Encephalopathy G93.40
[2022-11-05] MEDS: LORazepam 0.5 MG TAB PO SCH ×2 (19:28)
[2022-11-05] MEDS: MELATONIN 3 MG TAB PO SCH (19:28)
[2022-11-05] MEDS: LORazepam 2 MG/1 ML VIAL IV PRN (19:45)
[2022-11-06] MEDS: LORazepam 2 MG/1 ML VIAL IV PRN (04:54)
[2022-11-06] MEDS: CEFEPIME 2,000 MG in SYRINGE 0 ML IV SCH (04:56)
[2022-11-06] MEDS: THIAMINE HCL 100 MG TAB PO SCH (10:28)
--- NOTE | 2022-11-06 18:56 | Hospitalist Progress Note ---
Date of Service November 06, 2022 Assessment & Plan (1) Encephalopathy: Plan: strongly suspect delirium (due to UTI, and changing environments) superimposed on what has likely been progressive dementia Workup thus far: TSH normal Cortisol normal Lyme and Anaplasma negative Respiratory Biofire negative, Stool Biofire and C diff negative CXR x2 negative Head CT and MRI Brain 10/19/22 without acute findings but with evidence of moderate to severe small vessel ischemic disease B12 and Folate normal Immunoglobulin with decreased free light chain but nutritional markers are low consistent with decline at home of nutrition, monoclonal proteins negative Urinary work up below likely will need group home placement; family aware and reviewing options. family notes [facility] will take her but waiting on bed, case management informed me that [facility] was not going to take her. Obviously not able to sort this out over weekend, so we will need to determine her direction for disposition starting again on Monday treating UTI (7 days total for complicated cystitis) replacing thiamine while level still pending possible malnutrition - d/w family re encouraging eating, having food nearby, etcdoing a bit better with that Admission and Anticipated Discharge Date Admission Date: October 30, 2022 Subjective no meaningful HPI or ROS obtainable, family present. calmer, happier again today Review of Systems Review of Systems: Unobtainable due to cognitive status Physical Exam Physical Exam: sitting in bed talking repetitively, seems calm and happy. Breathing unlabored no accessory muscle use good effort. Skin shows no rashes no pallor or icterus. Neuro without focal deficits Results & Data Results & Data Vital Signs (Past 12 Hours) Vital Signs Temp Pulse Resp BP Pulse Ox O2 Del Method 11/06/22 15:25 97.7 F 99 H 16 115/75 92 Room Air 11/06/22 08:30 Room Air 11/06/22 07:39 98.6 F 85 16 103/66 92 Room Air PG Care Time/CCT Total # of Minutes Spent Total Time Spent with Patient: Total time spent is greater than 50% in coordination of care (as documented) at patient's floor/unit and/or counseling patient: Coding Level of Care Code 01556 SUB INP/OBS CARE 04/13MIN Diagnoses Encephalopathy G93.40
[2022-11-06] MEDS: LORazepam 0.5 MG TAB PO SCH (20:02)
[2022-11-06] MEDS: MELATONIN 3 MG TAB PO SCH (20:02)
[2022-11-07] MEDS: THIAMINE HCL 100 MG TAB PO SCH (09:39)
--- NOTE | 2022-11-07 12:54 | Hospitalist Progress Note ---
Date of Service November 07, 2022 Assessment & Plan (1) Encephalopathy: (2) Acute UTI: Plan: Delirium (due to UTI, and changing environments) superimposed progressive dementia -Negative work up as below - TSH normal Cortisol normal Lyme and Anaplasma negative Respiratory Biofire negative, Stool Biofire and C diff negative CXR x2 negative Head CT and MRI Brain 10/19/22 without acute findings but with evidence of moderate to severe small vessel ischemic disease B12 and Folate normal Immunoglobulin with decreased free light chain but nutritional markers are low consistent with decline at home of nutrition, monoclonal proteins negative Urinary work up below -Treated with 7 days of cefepime for Pseudomonas complicated UTI. -replacing thiamine while level still pending -possible malnutrition - encouraging eating, having food nearby, etc. 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 I discussed with case management - in the process of looking into other option since [facility] placement not an option at this time. Enoxaparin Admission and Anticipated Discharge Date Admission Date: October 30, 2022 Subjective Son at bedside. Patient has been constantly talking through the morning - random or whatever is being said in the room. Physical Exam Physical Exam: Comfortable in bed Alert repeating whatever is being said in the room No respiratory distress. Results & Data Results & Data Vital Signs (Past 12 Hours) Vital Signs Pulse Resp BP Pulse Ox O2 Del Method 11/07/22 08:41 Room Air 11/07/22 06:07 88 18 99/53 L 93 Room Air
[2022-11-07] MEDS: LORazepam 0.5 MG TAB PO SCH ×2 (20:45→21:06)
[2022-11-07] MEDS: MELATONIN 3 MG TAB PO SCH ×2 (20:45→21:06)
[2022-11-08] MEDS: LORazepam 0.5 MG TAB PO SCH ×2 (02:04→20:35)
[2022-11-08] MEDS ORDERED: LACTATED RINGER'S 1,000 ML IV ONE (08:09)
[2022-11-08 08:39] LABS: Basophils # (auto) 0.08 K/uL (0-0.2); Basophils % (auto) 0.8 %; Eosinophils # (auto) 0.07 K/uL (0-0.50); Eosinophils % (auto) 0.7 %; Hemoglobin 11.4 g/dl (12.0-16.0); Immature Granulocytes # (auto) 0.06 K/uL (0.01-0.20); Immature Granulocytes % (auto) 0.6 %; Lymphocytes % (auto) 8.3 %; Mean Corpuscular Hemoglobin 30.8 pg (25.0-34.0); Mean Corpuscular Hgb Conc 32.6 g/dL (32.0-36.0); Mean Corpuscular Volume 94.6 fL (80.0-100.0); Mean Platelet Volume 9.4 fL (9.4-12.4); Monocytes # (auto) 0.74 K/uL (0.11-0.59); Monocytes % (auto) 7.6 %; Neutrophils # (auto) 7.93 K/uL (1.40-6.50); Platelet Count 323 K/uL (130-400); RDW Coefficient of Variation 14.2 % (11.5-14.5); RDW Standard Deviation 49.7 fL (36.4-46.3); White Blood Count 9.68 K/ul (4.8-10.8)
[2022-11-08 08:59] LABS: Albumin Globulin Ratio 1.3 (0.9-2); Albumin Level 3.8 gm/dl (3.4-5.0); BUN Creatinine Ratio 68.7 (10-20); Bilirubin,Total 0.5 mg/dl (0.2-1.0); Creatinine Clr Calc Pharmacy 33.4 ml/min; Est GFR (African American) 52.8 ml/min; Est GFR (Non-African American) 45.5 ml/min; Globulin 2.9 gm/dl (2.5-4.0); Potassium 4.6 mmol/L (3.5-5.1); Total Protein 6.7 gm/dl (6.0-8.3)
[2022-11-08] MEDS: THIAMINE HCL 100 MG TAB PO SCH (09:12)
--- NOTE | 2022-11-08 13:32 | Hospitalist Progress Note ---
Date of Service November 08, 2022 Assessment & Plan (1) Encephalopathy: (2) Acute UTI: Plan: Hypovolemia with decreased UO -Due to poor PO intake -Ordered labs this am - cmp, cbc. Noted elevated BUN. -1L LR bolus. -continue to encourage PO intake. Delirium (due to UTI, and changing environments) superimposed progressive dementia -Negative work up as below - TSH normal Cortisol normal Lyme and Anaplasma negative Respiratory Biofire negative, Stool Biofire and C diff negative CXR x2 negative Head CT and MRI Brain 10/19/22 without acute findings but with evidence of moderate to severe small vessel ischemic disease B12 and Folate normal Immunoglobulin with decreased free light chain but nutritional markers are low consistent with decline at home of nutrition, monoclonal proteins negative -Treated with 7 days of cefepime for Pseudomonas complicated UTI. -replacing thiamine; level still pending -malnutrition - encouraging eating, having food nearby, etc. encouraged family participation -Add Mirtazapine for help with sleep and appetite. -continue prn lorazepam -Discussed GOC with son. He reports patient wanting to be kept comfortable while approaching end of life. -Discussed palliative care consult - will discuss with his sister and get back to us. 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 I discussed with case management - in the process of looking into other option since [facility] placement not an option at this time. Admission and Anticipated Discharge Date Admission Date: October 30, 2022 Subjective Son at bedside. Nursing messaged this am - poor PO intake and decreased urine output. still talking randomly but dosing off easily. Not slept well over last 2 nights. was given a dose of lorazepam 0.5mgs last night. Physical Exam Physical Exam: Comfortable in bed Alert repeating whatever is being said in the room No respiratory distress. Results & Data Results & Data Vital Signs (Past 12 Hours) Vital Signs Temp Pulse Pulse Resp BP Pulse Ox O2 Del Method 11/08/22 10:29 97 H 11/08/22 08:16 Room Air 11/08/22 07:00 36.6 C 112 H 16 149/84 H 93 Room Air
[2022-11-08] MEDS ORDERED: LACTATED RINGER'S 500 ML IV ONE (17:37)
[2022-11-08] MEDS: MIRTAZAPINE SOLTAB 15 MG PO SCH (20:35)
[2022-11-08] MEDS: MELATONIN 3 MG TAB PO SCH (20:35)
[2022-11-09] MEDS: THIAMINE HCL 100 MG TAB PO SCH (08:19)
[2022-11-09 09:07] LABS: BUN Creatinine Ratio 62.6 (10-20); Calcium 9.9 mg/dl (8.6-10.3); Creatinine Clr Calc Pharmacy 33.4 ml/min; Est GFR (African American) 52.8 ml/min; Est GFR (Non-African American) 45.5 ml/min
[2022-11-09 09:11] LABS: Potassium 4.3 mmol/L (3.5-5.1)
--- NOTE | 2022-11-09 12:49 | Hospitalist Progress Note ---
Date of Service November 09, 2022 Assessment & Plan (1) Encephalopathy: (2) Acute UTI: Plan: Hypovolemia -Due to poor PO intake sec to progressive dementia -Received 1.5L LR bolus 11/08. -persistent elevation in HR -Reviewed bmp ordered this am - still with elevated BUN. -Has pulled out IV lines in past so avoiding mIVF. -continue to encourage PO intake. -near syncope event when transitioning from chair to bed likely from poor PO intake. follow Delirium (due to UTI, and changing environments) superimposed on progressive dementia -Negative work up as below - TSH normal Cortisol normal Lyme and Anaplasma negative Respiratory Biofire negative, Stool Biofire and C diff negative CXR x2 negative Head CT and MRI Brain 10/19/22 without acute findings but with evidence of moderate to severe small vessel ischemic disease B12 and Folate normal Immunoglobulin with decreased free light chain but nutritional markers are low consistent with decline at home of nutrition, monoclonal proteins negative -Treated with 7 days of cefepime for Pseudomonas complicated UTI. -replacing thiamine; level still pending -malnutrition - encouraging eating, having food nearby, etc. encouraged family participation -Improved appetite with addition of Mirtazapine. -Slept better with mirtazapine. -continue prn lorazepam -Discussed GOC with son 11/08. He reports patient wanting to be kept comfortable while approaching end of life. -Discussed palliative care consult - will discuss with his sister and get back to us. Enoxaparin Dispo -needs correction placement; family aware and reviewing options. case management - in the process of looking into other option since [facility] placement not an option at this time. No medical reason to stay hospitalized. Poor PO intake and sleep disturbance from progressing dementia - leading to hypovolemia/malnutrition and related pathology. Admission and Anticipated Discharge Date Admission Date: October 30, 2022 Subjective Son, and grand-daughter at bedside. Per nursing - slept from 10.30p to 5am. Ate a big part of her breakfast. talking more today. later notified by nurse that when she was moved into chair - has a near-syncopal event. brought back into her bed. did have a large BM then Physical Exam Physical Exam: Comfortable in bed Alert talking randomly during the visit. following commands apporpirately. No respiratory distress. bilateral lower lung crackles. heart - tachycardia, Results & Data Results & Data Vital Signs (Past 12 Hours) Vital Signs Temp Pulse Pulse Resp BP BP Pulse Ox 11/09/22 11:45 107 H 97/55 L 95 11/09/22 07:22 36.5 C 112 H 16 110/74 93 O2 Del Method 11/09/22 11:45 Room Air 11/09/22 07:22 Room Air
[2022-11-09] MEDS ORDERED: ONDANSETRON INJ 2 MG/ML 2 ML VIAL IV PRN (13:39)
[2022-11-09] MEDS ORDERED: LACTATED RINGER'S 1,000 ML IV ONE (22:02)
[2022-11-09] MEDS: MIRTAZAPINE SOLTAB 15 MG PO SCH (22:22)
[2022-11-10] MEDS: LORazepam 0.5 MG TAB PO SCH (02:27)
--- NOTE | 2022-11-10 10:01 | XRay Report ---
XR chest 1V portable HISTORY: hypoxia COMPARISON: Chest 10/29/2022. FINDINGS: No pneumothorax. No pleural effusions. The lungs are clear. The heart is normal in size. No evidence for pulmonary edema. Degenerative changes again noted within the shoulders. Scoliosis of th e thoracolumbar spine. IMPRESSION: No acute process. ACT 112: Negative or not required by law. Electronically signed by: Reji Rooney M.D. 11/10/2022 9:59 AM
[2022-11-10] MEDS: THIAMINE HCL 100 MG TAB PO SCH (10:04)
[2022-11-10] MEDS ORDERED: ONDANSETRON INJ 2 MG/ML 2 ML VIAL IV PRN (12:41)
[2022-11-10] MEDS ORDERED: LORazepam 2 MG/1 ML VIAL IV PRN (12:41)
[2022-11-10] MEDS ORDERED: LORazepam 0.5 MG TAB PO PRN (12:41)
[2022-11-10] MEDS ORDERED: MoRPHine SULFATE 2 MG/ML CARP IV PRN ×2 (12:41→18:23)
[2022-11-10] MEDS ORDERED: ONDANSETRON 4 MG OD TAB SL PRN (12:41)
--- NOTE | 2022-11-10 12:57 | Hospitalist Progress Note ---
Date of Service November 10, 2022 Assessment & Plan (1) Encephalopathy: (2) Acute UTI: Plan: Delirium (due to UTI, and changing environments) superimposed on progressive dementia Hypotension. -Extensive negative work up. -Treated with 7 days of cefepime for Pseudomonas complicated UTI. -Attempted thiamine and nutrition support through days. -For random talking and pulling IV - prn lorazepam was used. Mirtazepine trial for no sleep over 2 days.. -Tachycardic since monday and BP running soft over last 3 days with drop over night despite multiple fluid resuscitation. -Discussed with son/daughter/ - patient would want to be kept comfortable in this current setting. All in agreement with transition to comfort care. -Comfort care order placed. IV morphine/lorazepam. d/c oral meds/dvt proph/vitals/pt/ot/. Admission and Anticipated Discharge Date Admission Date: October 30, 2022 Subjective Overnight BP dropped to 80 systolic. Given bolus IVF. has been lethargic all through the morning. I had Multiple visits this morning. and friend at bedside earlier. Later met with daughter and son. Family communicated with patient and she doesn't want any further care and would like to be kept comfortable. Physical Exam Physical Exam: Lethargic/minimal verbal response. No respiratory distress. bilateral lower lung crackles heart - tachycardia, Abd - soft. Results & Data Results & Data Vital Signs (Past 12 Hours) Vital Signs Temp Pulse Resp BP Pulse Ox O2 Del Method O2 Flow Rate 11/10/22 08:30 Nasal Cannula 2 11/10/22 06:00 98 Nasal Cannula 2 11/10/22 05:30 17 89 L Room Air 11/10/22 05:17 37.4 C 106 H 16 108/67 97 Nasal Cannula 2
--- NOTE | 2022-11-11 12:44 | Hospitalist Progress Note ---
Date of Service November 11, 2022 Assessment & Plan (1) Encephalopathy: (2) Acute UTI: Plan: Delirium (due to UTI, and changing environments) superimposed on progressive dementia Hypotension. -Extensive negative work up. -Treated with 7 days of cefepime for Pseudomonas complicated UTI. -Attempted thiamine and nutrition support through days. -For random talking and pulling IV - prn lorazepam was used. Mirtazapine trial for no sleep over 2 days - led to oversedation. -Tachycardic since monday and BP running soft with drop to 80s systolic on 11/09 night despite multiple fluid resuscitation. -Discussed with son/daughter/ - patient would want to be kept comfortable in this current setting. All in agreement with transition to comfort care. -Comfort care order placed. IV morphine/lorazepam. d/c oral meds/dvt proph/vitals/pt/ot/. -More alert today. Discussed with family the progressive nature of disease. will continue comfort care. If there is no sudden decline over the wkend, will continue to look into SNF options on monday. - Admission and Anticipated Discharge Date Admission Date: October 30, 2022 Subjective Visited twice - awake this am. more alert around noon. hasn't wanted to eat or drink anything. talking but not making sense. family at bedside. Physical Exam Physical Exam: Alert talking but unclear if she is oriented. No respiratory distress. heart - tachycardia, Results & Data Results & Data Vital Signs (Past 12 Hours) Vital Signs O2 Del Method 11/11/22 08:30 Room Air
[2022-11-12] MEDS: ACETAMINOPHEN 500 MG TAB PO PRN (09:49)
--- NOTE | 2022-11-12 14:47 | Hospitalist Progress Note ---
Date of Service November 12, 2022 Assessment & Plan (1) Encephalopathy: (2) Acute UTI: Plan: Delirium (due to UTI, and changing environments) superimposed on progressive dementia Hypotension. -Extensive negative work up. -Treated with 7 days of cefepime for Pseudomonas complicated UTI. -Attempted thiamine and nutrition support through days. -For random talking and pulling IV - prn lorazepam was used. Mirtazapine trial for no sleep over 2 days - led to oversedation. -Tachycardic since monday and BP running soft with drop to 80s systolic on 11/09 night despite multiple fluid resuscitation. -Discussed with son/daughter/ - patient would want to be kept comfortable in this current setting. All in agreement with transition to comfort care. -Comfort care order placed. IV morphine/lorazepam. d/c oral meds/dvt proph/vitals/pt/ot/. -More alert since 11/11. Discussed with family the progressive nature of dementia and the role of delirium from changing environment and hospitalization status. -Discussed continuing current comfort care. -If there is no sudden decline over the wkend, will continue to look into SNF options on monday. Will need reassessed for PT/OT on monday with new order placement -continue prn lorazepam. -will resume DVT proph 11/12 and reassess on daily basis. Admission and Anticipated Discharge Date Admission Date: October 30, 2022 Subjective Mentation much clear this morning. able to converse. aware of not being home. Ate a full meal for breakfast. remembered her daughter and son and grandkids. family at bedside. did receive dose of lorazepam last night. slept for more than 6 hrs last night Physical Exam Physical Exam: Alert and oriented x 2 No respiratory distress. heart - tachycardia, Results & Data Results & Data Vital Signs (Past 12 Hours) Vital Signs O2 Del Method 11/12/22 08:43 Room Air
[2022-11-12] MEDS: ENOXAPARIN INJ 40 MG/0.4 ML SYR SQ SCH (16:26)
[2022-11-13 11:45] LABS: Cdiff Toxin B Gene (2yr or >) Positive Cdiff Gene (Neg)
[2022-11-13 12:42] LABS: Cdiff Antigen Positive; Cdiff Toxin A+B Negative Cdiff Toxin (Negative)
[2022-11-13] MEDS ORDERED: LOPERAMIDE HCL 2 MG CAP PO PRN (13:49)
--- NOTE | 2022-11-13 13:55 | Hospitalist Progress Note ---
Date of Service November 13, 2022 Assessment & Plan (1) Encephalopathy: (2) Acute UTI: Plan: Delirium (due to UTI, and changing environments) superimposed on progressive dementia Hypotension. -Extensive negative work up. -Treated with 7 days of cefepime for Pseudomonas complicated UTI. -Attempted thiamine and nutrition support through days. -For random talking and pulling IV - prn lorazepam was used. Mirtazapine trial for no sleep over 2 days - led to oversedation. -Tachycardic since monday and BP running soft with drop to 80s systolic on 11/09 night despite multiple fluid resuscitation. -11/10 -Discussed with son/daughter/ - patient would want to be kept comfortable in this current setting. All in agreement with transition to comfort care. -Comfort care order placed. IV morphine/lorazepam. d/c oral meds/dvt proph/vitals/pt/ot/. -More alert since 11/11. Discussed with family the progressive nature of dementia and the role of delirium from changing environment and hospitalization status. -With significant improvement will slowly transition off comfort care if continues to do well by tomorrow. -PT/OT order placed. -continue melatonin and prn lorazepam. Diarrhea - -C diff gene positive/toxin neg. Has h/o IBS. possibly abx associated diarrhea with IBS exacerbation. -No studies to support withholding c diff treatment ub setting setting of diarrhea with gene+/toxin neg. -Will start oral vanco -add probiotics -resume home regimen of psyllium husk -prn imodium order placed. Lovenox. DNR/DNI Admission and Anticipated Discharge Date Admission Date: October 30, 2022 Subjective Alert in bed. ate well for breakfast. conversing appropriately. aware that she is in the hospital. remembers her leg swelling from admission. doesn't recall what happened afterwards. wants to get strong. Physical Exam Physical Exam: Alert and oriented x 2. reported 2019 for the year. aware that it is time for [place] No respiratory distress. heart - tachycardia, Results & Data Results & Data Vital Signs (Past 12 Hours) Vital Signs O2 Del Method 11/13/22 08:00 Room Air
[2022-11-13] MEDS ORDERED: MELATONIN 3 MG TAB PO PRN (13:56)
[2022-11-13] MEDS: ADVANCED PROBIOTIC 1250 MG CAPSULE PO SCH (14:40)
[2022-11-13] MEDS: PSYLLIUM or GUAR GUM FIBER POWDER PACKET PO SCH (14:40)
[2022-11-13] MEDS: ENOXAPARIN INJ 40 MG/0.4 ML SYR SQ SCH (15:00)
[2022-11-13] MEDS: VANCOMYCIN HCL 125 MG/2.5ML SOLN PO SCH ×2 (17:18→23:31)
[2022-11-13] MEDS: RASPBERRY SYRUP 5 ML UDP PO SCH ×2 (17:18→23:31)
[2022-11-13] MEDS: ACETAMINOPHEN 500 MG TAB PO PRN (17:47)
[2022-11-13] MEDS ORDERED: MoRPHine SULFATE 2 MG/ML CARP IV PRN (18:48)
[2022-11-13] MEDS ORDERED: OPTIRAY 320 100ml IV ONE (19:19)
[2022-11-13 19:28] LABS: Basophils # (auto) 0.07 K/uL (0.00-0.20); Basophils % (auto) 0.6 %; Eosinophils # (auto) 0.27 K/uL (0.00-0.50); Eosinophils % (auto) 2.4 %; Hematocrit (blood only) 33.9 % (37.0-47.0); Hemoglobin 11.1 g/dl (12.0-16.0); Immature Granulocytes # (auto) 0.33 K/uL (0.01-0.20); Immature Granulocytes % (auto) 2.9 %; Lymphocytes # (auto) 1.39 K/uL (1.20-3.40); Lymphocytes % (auto) 12.2 %; Mean Corpuscular Hemoglobin 30.9 pg (25.0-34.0); Mean Corpuscular Hgb Conc 32.7 g/dL (32.0-36.0); Mean Corpuscular Volume 94.4 fL (80.0-100.0); Mean Platelet Volume 9.7 fL (9.4-12.4); Monocytes # (auto) 1.42 K/uL (0.11-0.59); Monocytes % (auto) 12.4 %; Neutrophils # (auto) 7.96 K/uL (1.40-6.50); Neutrophils % (auto) 69.5 %; Platelet Count 304 K/uL (130-400); RDW Coefficient of Variation 14.3 % (11.5-14.5); RDW Standard Deviation 50.2 fL (36.4-46.3); Red Blood Count 3.59 M/uL (4.20-5.40); White Blood Count 11.44 K/ul (4.8-10.8)
--- NOTE | 2022-11-13 19:43 | CT Scan Report ---
ABDOMEN AND PELVIS CT WITH IV CONTRAST CT DOSE: 930.75 mGy.cm HISTORY: Severe abdominal pain TECHNIQUE: Multiaxial CT images of the abdomen and pelvis were performed following the use of intrave nous contrast. A dose lowering technique was utilized adhering to the principles of ALARA. COMPARISON STUDY: Abdomen and pelvis CT 10/29/2022. FINDINGS: There is a linear scarlike density again noted within the right lower lobe. The left lung b ase is clear. No pneumoperitoneum. No pneumatosis. Severe osteoarthritis within the bilateral hips. D extroscoliosis and advanced degenerative changes again noted within the lumbar spine. Cholelithiasis again noted. No gallbladder wall thickening. The main portal vein is patent. The liver, pancreas, spl een, and adrenal glands are unremarkable. No hydronephrosis. Bilateral cortical renal scarring/thinni ng again noted. Calcified plaque within the normal caliber abdominal aorta. No retroperitoneal or pel ck lymphadenopathy. Bladder wall thickening and adjacent fat stranding has improved/resolved in the interval. Multiple bladder diverticula again noted. There is a pessary device in place. There is mode rate thickening of the distal sigmoid colon and rectum with perirectal fat stranding and mucosal hype renhancement. There is also perirectal edema noted. Mild to moderate thickening throughout the remain ing colon with mild pericolonic fat stranding. This is consistent with a nonspecific proctocolitis. C olonic diverticulosis. No evidence for acute diverticulitis. No dilated loops of bowel to suggest an obstruction. A 1.8 cm right ovarian cyst again noted IMPRESSION: 1. Interval development [id number] bowel wall thickening involving the colon and rectum. This i s most pronounced within the rectum with associated perirectal edema. This is consistent with a nonsp ecific proctocolitis. This favors an infectious or inflammatory process. A C. difficile colitis would be the diagnosis of exclusion. 2. Colonic diverticulosis. No evidence for acute diverticulitis. 3. Bladder wall thickening has improved/resolved. 4. Cholelithiasis. 5. Additional findings as described above. ACT 112: Negative or not required by law. Electronically signed by: Reji Rooney M.D. 11/13/2022 7:41 PM
[2022-11-13 19:49] LABS: Albumin Globulin Ratio 1.1 (0.9-2); Albumin Level 2.8 gm/dl (3.4-5.0); BUN Creatinine Ratio 66.1 (10-20); Bilirubin,Total 0.5 mg/dl (0.2-1.0); Calcium 8.6 mg/dl (8.6-10.3); Creatinine Clr Calc Pharmacy 33.4 ml/min; Est GFR (African American) 52.8 ml/min; Est GFR (Non-African American) 45.5 ml/min; Globulin 2.6 gm/dl (2.5-4.0); Potassium 3.6 mmol/L (3.5-5.1); Total Protein 5.4 gm/dl (6.0-8.3)
--- NOTE | 2022-11-13 20:12 | Communication Note ---
Date of Service: November 13, 2022 got called by nursing for patient complaining of severe abdominal pain and again being confused. didn't eat lunch or dinner. discussed with daughter about removing comfort care. ordered urgent CT abd/pelvis with IV dye, cbc, cmp, lactate. lab results noted. CT with finding of colitis. reviewed results with daughter. continue oral vancomycin. tylenol didn't help with pain. IV morphine ordered - 2mgs IV q4 prn. ordered 250ml LR bolus - will not be able to tolerate maintenance fluids due to pulling IVs when confused. follow
[2022-11-13] MEDS ORDERED: LACTATED RINGER'S 250 ML IV ONE (20:17)
[2022-11-13] MEDS: LORazepam 2 MG/1 ML VIAL IV PRN (23:31)
[2022-11-14] MEDS: VANCOMYCIN HCL 125 MG/2.5ML SOLN PO SCH ×3 (05:50→17:55)
[2022-11-14] MEDS: RASPBERRY SYRUP 5 ML UDP PO SCH ×3 (05:50→17:54)
[2022-11-14] MEDS: ADVANCED PROBIOTIC 1250 MG CAPSULE PO SCH (08:28)
[2022-11-14] MEDS: PSYLLIUM or GUAR GUM FIBER POWDER PACKET PO SCH (08:28)
[2022-11-14] MEDS: ENOXAPARIN INJ 40 MG/0.4 ML SYR SQ SCH (16:53)
--- NOTE | 2022-11-14 18:06 | Hospitalist Progress Note ---
Date of Service November 14, 2022 Assessment & Plan (1) Encephalopathy: (2) Acute UTI: Plan: Delirium (due to UTI, and changing environments) superimposed on progressive dementia Hypotension. -Extensive negative work up. -Treated with 7 days of cefepime for Pseudomonas complicated UTI. -Attempted thiamine and nutrition support through days. -lorazepam mildly helpful in assisting sleep and calming agitation, mirtazapine apparently led to too much sedation -11/10 after discussion w family previous hospitalist team transitioned to comfort measures. -More alert since 11/11. Hospitalist discussed with family the progressive nature of dementia and the role of delirium from changing environment and hospitalization status. -With significant improvement transitioned off comfort -continue melatonin and prn lorazepam. Diarrhea - -C diff gene positive/toxin neg. worse pain - CT findings c/w colitis - initiated on PO vanco - continue for now given carrier state by testing, clinical illness by presentation and imaging - and seems to be improving. dispo - eventual SNF Lovenox. DNR/DNI Admission and Anticipated Discharge Date Admission Date: October 30, 2022 Subjective no meaningful HPI or ROS dtr notes that she was upset about abdominal pain yesterday (dr diane initiated Cdiff treatment, seems that pain is doing better thus far today), now upset about PT not working with her yet//wants me to be able to promise that PT will be working with her today (discussed that my expectation is that they will be, but that i did not want to make a promise that i do not have direct control over). Review of Systems Review of Systems: Unobtainable due to cognitive status Physical Exam Physical Exam: laying in bed nad breathing unlabored no accessory muscles good effort skin no rashes no pallor or icterus neuro no focal deficits Results & Data Results & Data Vital Signs (Past 12 Hours) Vital Signs Temp Pulse Pulse Resp BP Pulse Ox O2 Del Method 11/14/22 16:12 98.4 F 76 18 95 Room Air 11/14/22 15:35 97.7 F 115 H 16 93/60 L 88 L Room Air 11/14/22 10:50 88 18 95 Room Air 11/14/22 08:00 Room Air 11/14/22 08:09 98.2 F 90 16 97/64 L 92 Room Air PG Care Time/CCT Total # of Minutes Spent Total Time Spent with Patient: Total time spent is greater than 50% in coordination of care (as documented) at patient's floor/unit and/or counseling patient: Coding Level of Care Code 58399 SUB INP/OBS CARE 2/35MIN Diagnoses Encephalopathy G93.40 Acute UTI N39.0
[2022-11-14] MEDS: ALBUT/IPRATROP 3MG/0.5MG NEB 3 ML VIAL NEB PRN (20:39)
[2022-11-15] MEDS: RASPBERRY SYRUP 5 ML UDP PO SCH ×4 (00:25→18:55)
[2022-11-15] MEDS: VANCOMYCIN HCL 125 MG/2.5ML SOLN PO SCH ×4 (00:25→18:54)
[2022-11-15 06:33] LABS: Creatinine Clr Calc Pharmacy 36.9 ml/min; Est GFR (African American) 59.6 ml/min; Est GFR (Non-African American) 51.4 ml/min
[2022-11-15] MEDS: ADVANCED PROBIOTIC 1250 MG CAPSULE PO SCH (07:59)
[2022-11-15] MEDS: PSYLLIUM or GUAR GUM FIBER POWDER PACKET PO SCH (07:59)
[2022-11-15 09:25] LABS: Hematocrit (blood only) 34.1 % (37.0-47.0); Hemoglobin 11.2 g/dl (12.0-16.0); Mean Corpuscular Hemoglobin 30.7 pg (25.0-34.0); Mean Corpuscular Hgb Conc 32.8 g/dL (32.0-36.0); Mean Corpuscular Volume 93.4 fL (80.0-100.0); Mean Platelet Volume 9.5 fL (9.4-12.4); Nucleated RBC # (auto) 0.02 K/uL (0.00-0.12); Nucleated RBC % (auto) 0.2 %; Platelet Count 242 K/uL (130-400); RDW Standard Deviation 47.7 fL (36.4-46.3); Red Blood Count 3.65 M/uL (4.20-5.40); White Blood Count 9.28 K/ul (4.8-10.8)
[2022-11-15 09:29] LABS: Calcium 8.6 mg/dl (8.6-10.3); Potassium 3.8 mmol/L (3.5-5.1)
[2022-11-15 09:34] LABS: Est GFR (African American) 56.3 ml/min
[2022-11-15 09:35] LABS: C Reactive Protein 14.25 mg/dl (0-0.5); Creatinine Clr Calc Pharmacy 35.2 ml/min; Est GFR (Non-African American) 48.6 ml/min
[2022-11-15 09:47] LABS: Basophils # (auto) 0.06 K/uL (0.00-0.20); Basophils % (auto) 0.6 %; Eosinophils # (auto) 0.09 K/uL (0.00-0.50); Immature Granulocytes # (auto) 0.24 K/uL (0.01-0.20); Immature Granulocytes % (auto) 2.6 %; Lymphocytes # (auto) 1.04 K/uL (1.20-3.40); Lymphocytes % (auto) 11.2 %; Monocytes # (auto) 1.09 K/uL (0.11-0.59); Monocytes % (auto) 11.7 %; Neutrophils # (auto) 6.76 K/uL (1.40-6.50); Neutrophils % (auto) 72.9 %; Polychromasia 1+
--- NOTE | 2022-11-15 10:00 | XRay Report ---
XR chest 2V PA/lateral CLINICAL HISTORY: new hypoxia TECHNIQUE: 2 views of the chest were obtained. Comparison: Comparison is made to chest radiograph 11/10/2022 FINDINGS: No lines and tubes are seen. The aorta is tortuous. The remainder of the cardiomediastinal silhouette is unremarkable. Scoliosis is seen. The lungs are clear. No evidence of pleural effusion or pneumoth orax. IMPRESSION: No acute abnormalities and in particular no radiographic evidence of pneumonia. ACT 112: Negative or not required by law. Electronically signed by: Raul Negrete M.D. 11/15/2022 9:59 AM
--- NOTE | 2022-11-15 13:25 | Hospitalist Progress Note ---
Date of Service November 15, 2022 Assessment & Plan (1) Encephalopathy: (2) Acute UTI: Plan: Delirium (due to UTI, and changing environments) superimposed on progressive dementia -Extensive negative work up. -Treated with 7 days of cefepime for Pseudomonas complicated UTI. -Attempted thiamine and nutrition support through days. -lorazepam mildly helpful in assisting sleep and calming agitation, mirtazapine apparently led to too much sedation -11/10 after discussion w family previous hospitalist team transitioned to comfort measures. -More alert since 11/11. Hospitalist discussed with family the progressive nature of dementia and the role of delirium from changing environment and hospitalization status. -With significant improvement transitioned off comfort -continue melatonin and prn lorazepam. Diarrhea - -C diff gene positive/toxin neg. worse pain - CT findings c/w colitis - initiated on PO vanco - continue for now given carrier state by testing, clinical illness by presentation and imaging - and seems to be improving. continue vanco for now new O2 requirement -labs, CXR, exam reassuring. family notes excess fatigue - certainly fatigue/worsening delirium from Cdiff could be contributory - d/w family can't definitively rule out PE w w/u done, but given how reassuring the overall clinical appearance is, would continue w DVT proph for now, and if she shows any worsening then w/u further, if not, continue supportive care dispo - eventual SNF Lovenox. DNR/DNI Admission and Anticipated Discharge Date Admission Date: October 30, 2022 Subjective no meaningful HPI or ROS from pt dtr notes pt was more fatigued yesterday. does not appear sob. d/w nursing who notes that she's appeared comfortable/not dyspnic all night (overnight RN stayed extra into day - so has had her for ~14hrs by the time i see pt) Review of Systems Review of Systems: All systems reviewed & are unremarkable except as noted in HPI & below Physical Exam Physical Exam: awake, nad. cardio reg sl tachy. lungs cta b/l no r/r/w good effort skin no rashes no pallor or icterus neuro no focal deficits, abd soft nd nt no guarding/rebound/rigidity Results & Data Results & Data Vital Signs (Past 12 Hours) Vital Signs Temp Pulse Resp BP BP Pulse Ox O2 Del Method 11/15/22 10:12 108 H 20 93/60 L 95 Nasal Cannula 11/15/22 08:00 Nasal Cannula 11/15/22 07:54 97.9 F 11/15/22 06:04 107 H 20 93/59 L 92 Nasal Cannula O2 Flow Rate 11/15/22 10:12 2 11/15/22 08:00 4 11/15/22 07:54 11/15/22 06:04 3 PG Care Time/CCT Total # of Minutes Spent Total Time Spent with Patient: Total time spent is greater than 50% in coordination of care (as documented) at patient's floor/unit and/or counseling patient: Coding Level of Care Code 38916 SUB INP/OBS CARE 3/50MIN Diagnoses Encephalopathy G93.40 Acute UTI N39.0
[2022-11-15] MEDS: ENOXAPARIN INJ 40 MG/0.4 ML SYR SQ SCH (16:22)
[2022-11-16] MEDS: RASPBERRY SYRUP 5 ML UDP PO SCH ×5 (01:29→23:15)
[2022-11-16] MEDS: VANCOMYCIN HCL 125 MG/2.5ML SOLN PO SCH ×5 (01:29→23:14)
[2022-11-16] MEDS: LORazepam 2 MG/1 ML VIAL IV PRN (02:32)
[2022-11-16] MEDS: ADVANCED PROBIOTIC 1250 MG CAPSULE PO SCH (08:56)
[2022-11-16] MEDS: PSYLLIUM or GUAR GUM FIBER POWDER PACKET PO SCH (08:56)
--- NOTE | 2022-11-16 10:52 | Hospitalist Progress Note ---
Date of Service November 16, 2022 Assessment & Plan (1) Encephalopathy: (2) Acute UTI: Plan: Delirium (due to UTI, and changing environments) superimposed on progressive dementia -Extensive negative work up. -Treated with 7 days of cefepime for Pseudomonas complicated UTI. -Attempted thiamine and nutrition support through days. -lorazepam mildly helpful in assisting sleep and calming agitation, mirtazapine apparently led to too much sedation -11/10 after discussion w family previous hospitalist team transitioned to comfort measures. -More alert since 11/11. Hospitalist discussed with family the progressive nature of dementia and the role of delirium from changing environment and hospitalization status. -With significant improvement transitioned off comfort -continue melatonin and prn lorazepam. Diarrhea - -C diff gene positive/toxin neg. worse pain - CT findings c/w colitis - initiated on PO vanco - continue for now given carrier state by testing, clinical illness by presentation and imaging - and seems to be improving. - continue vanco for now; 11/16 is day 4 new O2 requirement -labs, CXR, exam reassuring. family notes excess fatigue - certainly fatigue/worsening delirium from Cdiff could be contributory - d/w family can't definitively rule out PE w w/u done, but given how reassuring the overall clinical appearance is, would continue w DVT proph for now, and if she shows any worsening then w/u further, if not, continue supportive care - overall improving, SPO2 in low 90s in room air dispo - eventual SNF, likely tomorrow Lovenox. DNR/DNI Admission and Anticipated Discharge Date Admission Date: October 30, 2022 Supervising Physician Co-Signing Physician Notes I personally examined the patient and verified all harris points of history and exam, discussed case, and agree with decision making with Dr Maycol gomez but no new complaints. updated son to the best of my ability vitals noted nad heent nc at mmm 92%on RA breathing unlabored no accessory muscles good effort skin no rashes no pallor or icterus delirium on dementia - now Cdiff related - treating - Cdiff improving. hypoxia stable, w/u yesterday was reassuring (d/w family that it didn't definitively rule out PE but less likely especially w stability) DVT proph - lovenox (d/w family yesterday to allow it to be given) Subjective Pt seen at bedside this morning. Resting comfortably. No events overnight. Review of Systems Review of Systems: As per above Physical Exam Physical Exam: Constitutional: well-appearing, no acute distress HEENT: NCAT, no conjunctival injection CV: well-perfused Resp: no increased work of breathing MSK: no gross deformities appreciated Skin: warm, dry, no rash appreciated Neuro: alert, oriented, no focal neurologic deficit appreciated Results & Data Results & Data Vital Signs (Past 12 Hours) Vital Signs Temp Pulse Resp BP Pulse Ox O2 Del Method O2 Flow Rate 11/16/22 09:00 Nasal Cannula 11/16/22 08:55 36.4 C L 101 H 16 99/65 L 96 Nasal Cannula 3 Resident Activity Tracking Resident Involvement: Resident Care Provided Care Provided: Adult Hospital Medicine
[2022-11-16] MEDS: ENOXAPARIN INJ 40 MG/0.4 ML SYR SQ SCH (17:45)
--- NOTE | 2022-11-16 19:13 | Billing Data ---
Date of Service November 16, 2022 Coding Level of Care Code 67956 SUB INP/OBS CARE
[2022-11-16] MEDS ORDERED: IPRATROPIUM BROMIDE/ALBUTEROL respimat INH INH SCH (21:00)
[2022-11-17] MEDS: VANCOMYCIN HCL 125 MG/2.5ML SOLN PO SCH ×2 (05:31→12:07)
[2022-11-17] MEDS: RASPBERRY SYRUP 5 ML UDP PO SCH ×2 (05:31→12:07)
[2022-11-17] MEDS: ALBUTEROL HFA 8 GM INHALER INH SCH ×2 (07:15→11:17)
[2022-11-17] MEDS: IPRATROPIUM BROMIDE HFA INHALER INH SCH ×2 (07:15→11:17)
[2022-11-17] MEDS ORDERED: FERROUS SULFATE 325 MG TAB PO SCH (09:00)
[2022-11-17] MEDS ORDERED: ASCORBIC ACID 500 MG TAB PO SCH (09:00)
[2022-11-17] MEDS: ADVANCED PROBIOTIC 1250 MG CAPSULE PO SCH (10:21)
[2022-11-17] MEDS: PSYLLIUM or GUAR GUM FIBER POWDER PACKET PO SCH (11:10)
--- NOTE | 2022-11-17 11:36 | Discharge Summary ---
Date of Service November 17, 2022 Admission HPI Per Admitting Provider Barby Lieberman is a 76yo female with history of HTN, HLP, COPD and PMR presenting from [facility] with confusion. Patient was recently admitted to [facility] from 10/20/22 - 10/27/22 after presenting with generalized weakness and difficulty with ambulation as well as worsening myalgias and arthralgias. Patient's symptoms initially thought to be secondary to Polymyalgia Rheumatica. During that hospital stay she had negative testing for Covid/Influenza/RSV as well as normal CT head and MRI with no acute findings. She had testing for Lyme disease and Anaplasmosis as well which were negative. She had a normal ESR, Random Cortisol Level, Rheumatoid Factor and SANDRA. She did have a POSITIVE test for HLA-B27. Of note, patient's daughter recently diagnosed with ankylosing spondylitis. She was found to have a urine culture POSITIVE for alpha streptococcus and was started on Augmentin which was transitioned to Keflex due to mild increase in LFTs. Patient had watery diarrhea and was treated with cholestyramine and fiber. She was seen by OB on 10/26/22 and had her pessary removed, cleaned and reinserted. Patient was discharged to [facility] on 10/27/22. Daughter reports that since discharge she has continued to decline. Daughter reports that patient has not been getting her antibiotic or medications as prescribed. Today she developed worsening confusion, decreased communication and decreased oral intake. Patient offers no complaints at present. Daughter is at bedside and assists with history. No report of fever, chills, chest pain, cough or shortness of breath. No report of nausea or vomiting. Patient continues to have watery diarrhea, decreased oral intake. In the ER she is afebrile, mildly hypertensive, tachycardic ER Course: Cefepime NSS Principal Diagnosis Delrium Discharge Exam Constitutional: well-appearing, no acute distress HEENT: NCAT, no conjunctival injection CV: well-perfused Resp: no increased work of breathing MSK: no gross deformities appreciated Skin: warm, dry, no rash appreciated Neuro: alert, oriented, no focal neurologic deficit appreciated Discharge Data Allergies Allergy/AdvReac Type Severity Reaction Status Date / Time latex Allergy Intermediate RASH ON Verified 10/29/22 03:07 ARMS WITH GLOVES nickel Allergy Intermediate RASH Verified 10/29/22 03:07 Consultations 10/29/22 05:16 ED Decision to Admit Stat 11/01/22 10:03 Consult Psychiatry Routine Ordered Studies 10/29/22 08:49 CT abd pelvis IV con only Routine 11/13/22 18:48 CT abd pelvis IV con only Urgent Laboratory Results WBC 9.28 K/ul (4.8-10.8) 11/15/22 09:00 RBC 3.65 M/uL (4.20-5.40) L 11/15/22 09:00 Hgb 11.2 g/dl (12.0-16.0) L 11/15/22 09:00 Hct 34.1 % (37.0-47.0) L 11/15/22 09:00 MCV 93.4 fL (80.0-100.0) 11/15/22 09:00 MCH 30.7 pg (25.0-34.0) 11/15/22 09:00 MCHC 32.8 g/dL (32.0-36.0) 11/15/22 09:00 RDW Std Deviation 47.7 fL (36.4-46.3) H 11/15/22 09:00 RDW Coeff of Juani 14.0 % (11.5-14.5) 11/15/22 09:00 Plt Count 242 K/uL (130-400) 11/15/22 09:00 MPV 9.5 fL (9.4-12.4) 11/15/22 09:00 Immature Gran % (Auto) 2.6 % 11/15/22 09:00 Neut % (Auto) 72.9 % 11/15/22 09:00 Lymph % (Auto) 11.2 % 11/15/22 09:00 [place] % (Auto) 11.7 % 11/15/22 09:00 Eos % (Auto) 1.0 % 11/15/22 09:00 Baso % (Auto) 0.6 % 11/15/22 09:00 Neut # (Auto) 6.76 K/uL (1.40-6.50) H 11/15/22 09:00 Lymph # (Auto) 1.04 K/uL (1.20-3.40) L 11/15/22 09:00 [place] # (Auto) 1.09 K/uL (0.11-0.59) H 11/15/22 09:00 Eos # (Auto) 0.09 K/uL (0.00-0.50) 11/15/22 09:00 Baso # (Auto) 0.06 K/uL (0.00-0.20) 11/15/22 09:00 Immature Gran # (Auto) 0.24 K/uL (0.01-0.20) H 11/15/22 09:00 Absolute Nucleated RBC 0.02 K/uL (0.00-0.12) 11/15/22 09:00 Nucleated RBC % (auto) 0.2 % 11/15/22 09:00 Polychromasia 1+ 11/15/22 09:00 ESR 31 mm/hr (0-30) H 11/02/22 06:21 Sodium 137 mmol/L (136-145) 11/15/22 09:00 Potassium 3.8 mmol/L (3.5-5.1) 11/15/22 09:00 Chloride 109 mmol/L (98-107) H 11/15/22 09:00 Carbon Dioxide 19 mmol/L (21-32) L 11/15/22 09:00 Anion Gap 9 (3-11) 11/15/22 09:00 BUN 60 mg/dl (6-23) H 11/15/22 09:00 Creatinine 1.09 mg/dl (0.6-1.2) 11/15/22 09:00 Est Cr Clr Drug Dosing 35.2 ml/min 11/15/22 09:00 Est GFR ( Amer) 56.3 ml/min 11/15/22 09:00 Est GFR (Non-Af Amer) 48.6 ml/min 11/15/22 09:00 BUN/Creatinine Ratio 55.0 (10-20) H 11/15/22 09:00 Glucose 226 mg/dl (70-99(Fasting)) H 11/15/22 09:00 Lactate 0.8 mmol/L (0.4-2.0) 11/13/22 19:05 Calcium 8.6 mg/dl (8.6-10.3) 11/15/22 09:00 Phosphorus 3.3 mg/dl (2.5-4.9) 10/29/22 09:52 Magnesium 1.5 mg/dl (1.7-2.4) L 10/29/22 09:52 Total Bilirubin 0.5 mg/dl (0.2-1.0) 11/13/22 19:05 Direct Bilirubin 0.1 mg/dl (0-0.2) 10/30/22 05:25 AST 13 U/L (13-39) 11/13/22 19:05 ALT 12 U/L (7-52) 11/13/22 19:05 Alkaline Phosphatase 161 U/L (34-104) H 11/13/22 19:05 Ammonia 31.0 umol/L (18-72) 10/29/22 09:52 C-Reactive Protein 14.25 mg/dl (0-0.5) H 11/15/22 09:00 Total Protein 5.4 gm/dl (6.0-8.3) L 11/13/22 19:05 Albumin 2.8 gm/dl (3.4-5.0) L 11/13/22 19:05 Globulin 2.6 gm/dl (2.5-4.0) 11/13/22 19:05 Albumin/Globulin Ratio 1.1 (0.9-2) 11/13/22 19:05 Vitamin B12 553 pg/ml (180-914) 10/29/22 09:52 Folate > 22.30 ng/ml (>5.38) 10/29/22 09:52 Procalcitonin < 0.05 ng/ml (0-0.5) 10/29/22 03:55 TSH 1.544 uIu/ml (0.300-4.500) 10/29/22 03:55 Urine Color Yellow 10/29/22 03:53 Urine Appearance Cloudy (Clear) A 10/29/22 03:53 Urine pH 5.0 (4.5-7.5) 10/29/22 03:53 Ur Specific [place] 1.014 (1.000-1.030) 10/29/22 03:53 Urine Protein 1+ (Negative) H 10/29/22 03:53 Urine Glucose (UA) Negative (Negative) 10/29/22 03:53 Urine Ketones Trace (Negative) H 10/29/22 03:53 Urine Blood 3+ (Negative) H 10/29/22 03:53 Urine Nitrite Negative (Negative) 10/29/22 03:53 Urine Bilirubin Negative (Negative) 10/29/22 03:53 Urine Urobilinogen Negative (Negative) 10/29/22 03:53 Ur Leukocyte Esterase 3+ (Negative) H 10/29/22 03:53 Urine WBC (Auto) >30 /hpf (0-5) H 10/29/22 03:53 Urine RBC (Auto) 10-30 /hpf (0-4) H 10/29/22 03:53 U Hyaline Cast (Auto) 1-5 /lpf (0-5) 10/29/22 03:53 U Epithel Cells (Auto) 5-10 /lpf (0-5) H 10/29/22 03:53 Urine Bacteria (Auto) 1+ (Negative) H 10/29/22 03:53 Stl C. cayetanensis PCR Not Detected (NotDetected) 10/29/22 13:20 Stool Rotavirus A PCR Not Detected (NotDetected) 10/29/22 13:20 Stl Adenov F 40/41 PCR Not Detected (NotDetected) 10/29/22 13:20 Stool Astrovirus (PCR) Not Detected (NotDetected) 10/29/22 13:20 Stool Campylobacter PCR Not Detected (NotDetected) 10/29/22 13:20 Stl C. diff Tox B Gene Positive Cdiff Gene (Neg) H 11/13/22 10:10 Stl C.difficile Tox A&B Negative Cdiff Toxin (Negative) 11/13/22 10:10 Stool Cryptosporidium PCR Not Detected (NotDetected) 10/29/22 13:20 Stl E.coli Shiga Tox PCR Not Detected (NotDetected) 10/29/22 13:20 Stl Enterotoxigenic E PCR Not Detected (NotDetected) 10/29/22 13:20 Stool EPEC (PCR) Not Detected (NotDetected) 10/29/22 13:20 Stool EAEC (PCR) Not Detected (NotDetected) 10/29/22 13:20 Stl E. histolytica PCR Not Detected (NotDetected) 10/29/22 13:20 Stool Giardia Lamblia PCR Not Detected (NotDetected) 10/29/22 13:20 Stool Salmonella PCR Not Detected (NotDetected) 10/29/22 13:20 Stool Sapovirus (PCR) Not Detected (NotDetected) 10/29/22 13:20 Stl P. shigelloides PCR Not Detected (NotDetected) 10/29/22 13:20 Stl Shigella/EIEC PCR Not Detected (NotDetected) 10/29/22 13:20 St Y.enterocolitica PCR Not Detected (NotDetected) 10/29/22 13:20 Stool Vibrio (PCR) Not Detected (NotDetected) 10/29/22 13:20 Stl Vibrio cholerae PCR Not Detected (NotDetected) 10/29/22 13:20 Stl Norovirus GI/GII PCR Not Detected (NotDetected) 10/29/22 13:20 Adenovirus (PCR) Not Detected (NotDetected) 10/29/22 12:41 B. pertussis DNA (PCR) Not Detected (NotDetected) 10/29/22 12:41 B.parapertussis DNA PCR Not Detected (NotDetected) 10/29/22 12:41 C. pneumoniae DNA (PCR) Not Detected (NotDetected) 10/29/22 12:41 Coronavirus OC43 (PCR) Not Detected (NotDetected) 10/29/22 12:41 Coronavirus HKU1 (PCR) Not Detected (NotDetected) 10/29/22 12:41 Coronavirus 229E (PCR) Not Detected (NotDetected) 10/29/22 12:41 SARS-CoV-2 (PCR) Not Detected (NotDetected) 10/29/22 12:41 Coronavirus NL63 (PCR) Not Detected (NotDetected) 10/29/22 12:41 Human Metapneumovir PCR Not Detected (NotDetected) 10/29/22 12:41 Influenza Type A (PCR) Not Detected (NotDetected) 10/29/22 12:41 Influenza Type B (PCR) Not Detected (NotDetected) 10/29/22 12:41 M. pneumoniae (PCR) Not Detected (NotDetected) 10/29/22 12:41 Parainfluenza 1 (PCR) Not Detected (NotDetected) 10/29/22 12:41 Parainfluenza 2 (PCR) Not Detected (NotDetected) 10/29/22 12:41 Parainfluenza 3 (PCR) Not Detected (NotDetected) 10/29/22 12:41 Parainfluenza 4 (PCR) Not Detected (NotDetected) 10/29/22 12:41 RSV (PCR) Not Detected (NotDetected) 10/29/22 12:41 Entero/Rhino (PCR) Not Detected (NotDetected) 10/29/22 12:41 Impressions Abdomen/Pelvis CT 11/13/22 18:[address] WITH IV CONTRAST CT DOSE: 930.75 mGy.cm HISTORY: Severe abdominal pain TECHNIQUE: Multiaxial CT images of the abdomen and pelvis were performed following the use of intravenous contrast. A dose lowering technique was utilized adhering to the principles of ALARA. COMPARISON STUDY: Abdomen and pelvis CT 10/29/2022. FINDINGS: There is a linear scarlike density again noted within the right lower lobe. The left lung base is clear. No pneumoperitoneum. No pneumatosis. Severe osteoarthritis within the bilateral hips. Dextroscoliosis and advanced degenerative changes again noted within the lumbar spine. Cholelithiasis again noted. No gallbladder wall thickening. The main portal vein is patent. The liver, pancreas, spleen, and adrenal glands are unremarkable. No hydronephrosis. Bilateral cortical renal scarring/thinning again noted. Calcified plaque within the normal caliber abdominal aorta. No retroperitoneal or pelvic lymphadenopathy. Bladder wall thickening and adjacent fat stranding has improved/resolved in the interval. Multiple bladder diverticula again noted. There is a pessary device in place. There is moderate thickening of the distal sigmoid colon and rectum with perirectal fat stranding and mucosal hyperenhancement. There is also perirectal edema noted. Mild to moderate thickening throughout the remaining colon with mild pericolonic fat stranding. This is consistent with a nonspecific proctocolitis. Colonic diverticulosis. No evidence for acute diverticulitis. No dilated loops of bowel to suggest an obstruction. A 1.8 cm right ovarian cyst again noted IMPRESSION: 1. Interval development [id number] bowel wall thickening involving the colon and rectum. This is most pronounced within the rectum with associated perirectal edema. This is consistent with a nonspecific proctocolitis. This favors an infectious or inflammatory process. A C. difficile colitis would be the diagnosis of exclusion. 2. Colonic diverticulosis. No evidence for acute diverticulitis. 3. Bladder wall thickening has improved/resolved. 4. Cholelithiasis. 5. Additional findings as described above. ACT 112: Negative or not required by law. Electronically signed by: Reji Rooney M.D. 11/13/2022 7:41 PM Chest X-Ray 11/15/22 08:54 XR chest 2V PA/lateral CLINICAL HISTORY: new hypoxia TECHNIQUE: 2 views of the chest were obtained. Comparison: Comparison is made to chest radiograph 11/10/2022 FINDINGS: No lines and tubes are seen. The aorta is tortuous. The remainder of the cardiomediastinal silhouette is unremarkable. Scoliosis is seen. The lungs are clear. No evidence of pleural effusion or pneumothorax. IMPRESSION: No acute abnormalities and in particular no radiographic evidence of pneumonia. ACT 112: Negative or not required by law. Electronically signed by: Raul Negrete M.D. 11/15/2022 9:59 AM Hospital Course (1) Encephalopathy: (2) Acute UTI: Delirium (due to UTI, and changing environments) superimposed on progressive dementia -Extensive negative work up. -Treated with 7 days of cefepime for Pseudomonas complicated UTI. -Attempted thiamine and nutrition support through days. -lorazepam mildly helpful in assisting sleep and calming agitation, mirtazapine apparently led to too much sedation -11/10 after discussion w family previous hospitalist team transitioned to comfort measures. -More alert since 11/11. Hospitalist discussed with family the progressive nature of dementia and the role of delirium from changing environment and hospitalization status. -With significant improvement transitioned off comfort Plan: -continue melatonin, was getting prn Ativan could continue cautiously, family would like to avoid as much as possible because they feel it causes excessive day time sleepiness Diarrhea - -C diff gene positive/toxin neg. worse pain - CT findings c/w colitis - initiated on PO vanco - continue for now given carrier state by testing, clinical illness by presentation and imaging - and seems to be improving. Plan - continue vanco for a total of 10 days; last day would be 11/23 new O2 requirement- resolved -labs, CXR, exam reassuring. family notes excess fatigue - certainly fatigue/worsening delirium from Cdiff could be contributory - d/w family can't definitively rule out PE w w/u done, but given how reassuring the overall clinical appearance is, would continue w DVT proph for now, and if she shows any worsening then w/u further, if not, continue supportive care - overall improving, SPO2 in low 90s in room air Plan: - Started on Atrovent daily with Ventolin prn Total Time Total Time Spent Total Time Spent (In Minutes): <30 Discharge Plan Discharge Items Patient Disposition: Transfer [facility] Fac Reason For Visit: CONFUSION Discharge Diagnosis: Encephalopathy Activity: Per Instructions section Non-emergency contact: Primary Care Provider Call non-emergency contact if: you have any medication questions and your symptoms worsen Follow-up/Referrals: Katherine Chen MD [Primary Care Provider] - Diet: Regular Addtl Attending Provider Instructions: Delirium (due to UTI, and changing environments) superimposed on progressive dementia -Extensive negative work up. -Treated with 7 days of cefepime for Pseudomonas complicated UTI. -Attempted thiamine and nutrition support through days. -lorazepam mildly helpful in assisting sleep and calming agitation, mirtazapine apparently led to too much sedation -11/10 after discussion w family previous hospitalist team transitioned to comfort measures. -More alert since 11/11. Hospitalist discussed with family the progressive nature of dementia and the role of delirium from changing environment and hospitalization status. -With significant improvement transitioned off comfort Plan: -continue melatonin, was getting prn Ativan could continue cautiously, family would like to avoid as much as possible because they feel it causes excessive day time sleepiness Diarrhea - -C diff gene positive/toxin neg. worse pain - CT findings c/w colitis - initiated on PO vanco - continue for now given carrier state by testing, clinical illness by presentation and imaging - and seems to be improving. Plan - continue vanco for a total of 10 days; last day would be 11/23 new O2 requirement- resolved -labs, CXR, exam reassuring. family notes excess fatigue - certainly fatigue/worsening delirium from Cdiff could be contributory - d/w family can't definitively rule out PE w w/u done, but given how reassuring the overall cli nical appearance is, would continue w DVT proph for now, and if she shows any worsening then w/u further, if not, continue supportive care - overall improving, SPO2 in low 90s in room air Plan: - Started on Atrovent daily with Ventolin prn Pending Studies at Discharge: No Stand-Alone Forms: My [facility] Skilled Items Patient informed of condition?: Yes DNR: Yes Discharge Level of Care: Skilled Communicable Disease: Yes Discharge Prognosis: Stable Lines: None Urinary Catheter: No Medications and DC Order Prescriptions: New vancomycin 1,000 mg Recon Soln 125 mg PO Q6 6 Days Qty: 3000 0RF Advanced Probiotic 625 mg (10 billion cell) Capsule 2 cap PO DAILY 6 Days Qty: 12 0RF albuterol sulfate [Ventolin HFA] 90 mcg/actuation Hfa Aerosol Inhaler 1 puff inhalation QIDR PRN (Reason: Bronchospasm) Qty: 6.7 0RF Atrovent HFA 17 mcg/actuation Hfa Aerosol Inhaler 1 puff inhalation QIDR 30 Days Qty: 12.9 0RF Continued ferrous sulfate 325 mg (65 mg iron) tablet 325 mg PO DAILY Qty: 90 3RF Rx Instructions: take with Vitamin C. acetaminophen 500 mg tablet 1,000 mg PO Q8 PRN (Reason: Pain) melatonin 3 mg Tablet 3 mg PO HS Qty: 30 0RF thiamine HCl (vitamin B1) 100 mg Tablet 100 mg PO QAM Qty: 30 0RF psyllium husk [Daily Fiber] 0.4 gram capsule 0.4 g PO DAILY Qty: 30 0RF ascorbic acid (vitamin C) [Vitamin C] 500 mg Tablet 500 mg PO DAILY Discontinued naproxen sodium [Aleve] 220 mg Tablet 220 mg PO Q8H PRN (Reason: Pain) Discharge Orders: Discharge Order (Routine); Ordered 11/17/22 Ordered By: Marce Severino Admission Data Admit Date/Time: 10/30/22 10:11 Attending Provider: Mg Dobbins Admit Provider: Yeni Chauhan Primary Care Provider: Katherine Chen Other Providers: Yeni Chauhan ; Jeremiah Patton ; Charu Gilbert ; Evangelina Mahoney ; Fredy Monge ; Mg Dobbins ; Hermann,[facility] Other Interventions: Discharge Summary Assessment (RN) Last Done: 11/17/22 12:25 Supervising Physician Co-Signing Physician Notes I personally examined the patient and verified all harris points of history and exam, discussed case, and agree with decision making with Dr Severino more alert, no real complaints. doesn't seem to have sob, belly not really hurting. updated dtr at bedside to the best of my ability vitals noted nad heent nc at mmm 92%on RA breathing unlabored no accessory muscles good effort skin no rashes no pallor or icterus delirium on dementia - now Cdiff related - treating - Cdiff improving. 10 days, close f/u after abx stopped. hypoxia stable, w/u 2 days was reassuring (d/w family that it didn't definitively rule out PE but less likely especially w stability) DVT proph - lovenox ordered (d/w family previously to allow it to be given, although on review administration thereof was still declined)
--- NOTE | 2022-11-17 13:25 | Billing Data ---
Date of Service November 17, 2022 Coding Level of Care Code 05760 IN/OBS DISCH 30 MIN/LESS
[2022-11-17] MEDS ORDERED: CHERRY SYRUP 5 ML UDP PO SCH (18:00)
== END 2022-11-17 14:05 | DRG 689 ==
LOC: ED 02:52 → 3E 02:52 → SUATTDRO 06:00 → 3E 09:15 → SUATTDRO 10-30 10:11